=== PATIENT | female | born 1965 | race Caucasian/White ===

== ENCOUNTER 2023-01-13 09:03 | Outpatient (CLI) | payer BC, SELFPAY ==
--- NOTE | 2023-01-13 09:15 | CRLHL7_ITS ---
For Patients: As a result of the Century Cures Act, medical imaging exams and procedure reports are released immediately into your electronic medical record. You may view this report before your referring provider. If you have questions, please contact your health care provider. ULTRASOUND-GUIDED BREAST BIOPSY AND POST-BIOPSY DIGITAL MAMMOGRAM FOR BIOPSY MARKER PLACEMENT CLINICAL HISTORY: Suspicious mass. COMPARISON STUDIES: 01/06/2023, 12/24/2022. TECHNIQUE: Real-time ultrasound with image documentation was used for targeting the breast lesion. Core biopsy specimens were obtained using an automated gun with a 18-gauge biopsy needle. Post-biopsy CC and ML digital mammograms were obtained to document position of the biopsy marker. CONSENT and TIME OUT: The procedure, risks, and alternatives were explained to the patient and a consent was signed. [facility] Protocol was followed including pre-procedure verification that relevant information/documentation was available, reviewed and properly matched to the patient; consent accurate and complete; and equipment and supplies available. Time Out was conducted just prior to starting procedure to verify the four required elements: patient identity, correct side/site marked (if applicable), procedure, relevant images/results properly labeled and displayed (if applicable). PROCEDURE: The patient was positioned supine on the ultrasound table. The breast was prepped with ChloraPrep. 6 cc of 1 percent lidocaine used for local anesthesia. Core samples were obtained. A sterile metal biopsy clip was placed percutaneously to jorge the lesion position within the breast. The specimens were placed in 10% formalin and sent to the pathology department. Pressure was held on the biopsy site until all bleeding subsided. The skin incision was closed with Steri-Strips. An ice pack was positioned over the biopsy site. Post-biopsy instructions were reviewed with the patient, and a written copy was given to her. LATERALITY: LEFT breast. LESION: Microlobulated hypoechoic shadowing mass measuring 1.7 x 1.5 x 1.8 cm at 2 o`clock 11 cm from the nipple. SUSPICION FOR MALIGNANCY: High. NUMBER OF SAMPLES: 5. BIOPSY CLIP SHAPE: Oval. PROXIMITY OF CLIP TO TARGET: Within the lesion. IMPRESSION: Ultrasound-guided breast biopsy. When the pathology report is available, an addendum to this report will be made. ACR not applicable Dictated by Judd Sexton MD @ 01/13/2023 10:06:00 AM jj/Dictated by: Judd Sexton MD @ 01/13/2023 10:05:00 AM (Electronically Signed) Final Report: ADDENDUM: Pathology consistent with invasive ductal carcinoma with clear cell features, grade II/III. This is concordant. Appropriate action recommended. Dictated by: Judd Sexton MD @01/15/2023 9:59:04 AM
--- NOTE | 2023-01-13 10:00 | CRLHL7_ITS ---
For Patients: As a result of the Century Cures Act, medical imaging exams and procedure reports are released immediately into your electronic medical record. You may view this report before your referring provider. If you have questions, please contact your health care provider. PLEASE SEE ULTRASOUND-GUIDED LEFT BREAST BIOPSY PERFORMED SAME DAY CRL:[email or web address] ferris/Dictated by: Judd Sexton MD @ 01/13/2023 10:06:00 AM (Electronically Signed)
== END 2023-01-13 09:04 | disposition home or self-care (01) ==
LOC: US 09:04
PROVIDERS: Visit Provider Student in an Organized Health Care Education/Training Program
DX: N63.20 Unspecified lump in the left breast, unspecified quadrant (principal); R92.8 Other abnormal and inconclusive findings on diagnostic imaging of breast
CPT/HCPCS: 19083; 77065; 88305; 88341; 88342; 88360; 88361; A4648; A4649

== ENCOUNTER 2023-01-24 14:22 | Outpatient (CLI) | payer BC, SELFPAY ==
--- NOTE | 2023-01-24 14:30 | CRLHL7_ITS ---
For Patients: As a result of the Century Cures Act, medical imaging exams and procedure reports are released immediately into your electronic medical record. You may view this report before your referring provider. If you have questions, please contact your health care provider. BILATERAL BREAST MRI WITHOUT AND WITH GADOLINIUM CLINICAL HISTORY: Recently diagnosed LEFT breast cancer after ultrasound-guided biopsy of a mass at 2 o`clock in the LEFT breast. INDICATION FOR BREAST MRI: Staging of newly diagnosed breast cancer and screening of contralateral breast. Regional lymph nodes will also be assessed. COMPARISON STUDIES: Screening mammogram 12/24/2022 and diagnostic LEFT mammogram and ultrasound 01/06/2023. Images from ultrasound-guided LEFT breast biopsy and post biopsy mammogram 01/13/2023. CONTRAST: 15 mL Dotarem. TECHNIQUE: The patient was positioned prone using a breast coil. Multiple imaging sequences were obtained using 1-1.5 mm thick slices with no gap. The image sequences include T2-weighted STIR in the axial plane, T1-weighted nonfat-saturated gradient echo in the axial plane, pre- and post-contrast T1-weighted FLASH 3D with fat suppression in the axial plane, and T1-weighted FLASH high resolution 3D with fat suppression in the sagittal plane. Image post-processing was performed on a [employer] workstation. Complex 3D rendering including maximum intensity projections (MIPS) and volumetric renderings were obtained to optimize visualization of the extent of pathology and relationship to the nipple, skin, and chest wall. This aids in determining feasibility of breast conservation surgery. Subtraction, multiplanar reconstruction, mean curve determination, and angiogenesis mapping were also performed. The study was technically adequate. FINDINGS: Amount of Fibroglandular Tissue: Scattered fibroglandular tissue. Breast Background Enhancement: Mild. RIGHT Breast: There is no suspicious mass or enhancement within the breast. LEFT Breast: In the upper outer breast at 2 o`clock, 11 cm posterior to the nipple there is a 2 x 2.4 x 2 cm oval mass with spiculated margins demonstrating heterogeneous internal enhancement with areas of fat initial and washout delayed phase kinetics. There is susceptibility artifact within the mass from the clip marking the site of biopsy-proven malignancy. Lymph Nodes: There are a few low LEFT axillary lymph nodes with mildly thickened cortices. No abnormal morphology lymph nodes on the RIGHT. No internal mammary lymph nodes. IMPRESSIONS AND RECOMMENDATIONS: 1. The biopsy-proven malignancy at 2 o`clock in the LEFT breast measures up to 2.4 cm on MRI. Continued surgical/oncologic management is recommended. 2. No MRI evidence of malignancy in the RIGHT breast. 3. There are few mildly abnormal appearing low LEFT axillary lymph nodes. Recommend LEFT axillary ultrasound and possible ultrasound-guided biopsy for further evaluation. BI-RADS Category 4: Suspicious Dictated by Maria Haji MD @ 01/27/2023 11:58:46 AM jj/Dictated by: Maria Haji MD @ 01/27/2023 11:58:00 AM (Electronically Signed)
== END 2023-01-24 14:23 | disposition home or self-care (01) ==
LOC: MRI 14:22
PROVIDERS: PCP Student in an Organized Health Care Education/Training Program; Visit Provider Surgery
DX: C50.912 Malignant neoplasm of unspecified site of left female breast (principal)
CPT/HCPCS: 77049; A9575

== ENCOUNTER 2023-02-03 08:54 | Outpatient (CLI) | payer BC, SELFPAY ==
--- NOTE | 2023-02-03 09:15 | CRLHL7_ITS ---
For Patients: As a result of the Century Cures Act, medical imaging exams and procedure reports are released immediately into your electronic medical record. You may view this report before your referring provider. If you have questions, please contact your health care provider. LEFT AXILLA ULTRASOUND/LEFT AXILLA BIOPSY 02/03/2023 CLINICAL HISTORY: History of recent diagnosis LEFT breast cancer with mildly prominent LEFT axillary lymph nodes. COMPARISON: Left axilla ultrasound 02/03/2023. FINDINGS: LEFT AXILLA ULTRASOUND: Ultrasound of the LEFT axilla demonstrates a 1.5 x 0.8 x 0.5 cm lymph node, slightly nodular cortex with presence of a fatty hilum, indeterminate. Ultrasound biopsy is recommended and will follow. LEFT AXILLA BIOPSY: TECHNIQUE: Real-time ultrasound with image documentation was used for targeting the breast lesion. Core biopsy specimens were obtained using an automated gun with a 14-gauge biopsy needle. Post-biopsy CC and ML digital mammograms were obtained to document position of the biopsy marker. CONSENT and TIME OUT: The procedure, risks, and alternatives were explained to the patient and a consent was signed. [place] Protocol was followed including pre-procedure verification that relevant information/documentation was available, reviewed and properly matched to the patient; consent accurate and complete; and equipment and supplies available. Time Out was conducted just prior to starting procedure to verify the four required elements: patient identity, correct side/site marked (if applicable), procedure, relevant images/results properly labeled and displayed (if applicable). PROCEDURE: The patient was positioned supine on the ultrasound table. The breast was prepped with Betadine or ChloraPrep. 10 cc of 1% lidocaine was injected for superficial anesthesia and 5 cc of 1% lidocaine with epinephrine was injected for deeper anesthesia. Core samples were obtained. A sterile metal biopsy clip was placed percutaneously to jorge the lesion position within the breast. The specimens were placed in 10% formalin and sent to the pathology department. Pressure was held on the biopsy site until all bleeding subsided. The skin incision was closed with Steri-Strips. An ice pack was positioned over the biopsy site. Post-biopsy instructions were reviewed with the patient, and a written copy was given to her. LATERALITY: LEFT LESION: The lesion is a 1.5 x 0.5 x 0.8 cm lymph node with slight nodular cortex. SUSPICION FOR MALIGNANCY: Intermediate. NUMBER OF SAMPLES: 3. BIOPSY CLIP SHAPE: Twirl-shaped. PROXIMITY OF CLIP TO TARGET: On target. IMPRESSION: Ultrasound-guided breast biopsy. When the pathology report is available, an addendum to this report will be made. ACR not applicable Winnie Bansal M.D. Diagnostic/Breast Radiologist [facility] [email or web address] Transcribed: 11:33 am DW/Dictated by: Winnie Bansal MD @ 02/03/2023 10:10:00 AM ADDENDUM: Pathology LEFT axillary lymph node ultrasound-guided biopsy demonstrates fragments of benign fibroadipose tissue. Negative for solo tissue and metastatic carcinoma in this sampling. Pathology results reviewed with imaging findings found discordant. Repeat ultrasound-guided axillary biopsy could be performed at request. Surgical and oncologic management per referring physician. Winnie Bansal M.D. Diagnostic/Breast Radiologist [facility] [email or web address] D& Transcribed: 5:20 p.m (Electronically Signed)
== END 2023-02-03 08:55 | disposition home or self-care (01) ==
LOC: US 08:55
PROVIDERS: PCP Student in an Organized Health Care Education/Training Program; Visit Provider Surgery
DX: C50.912 Malignant neoplasm of unspecified site of left female breast (principal); R92.8 Other abnormal and inconclusive findings on diagnostic imaging of breast; R59.9 Enlarged lymph nodes, unspecified; R22.9 Localized swelling, mass and lump, unspecified
CPT/HCPCS: 38505; 76942; 88305; A4648; A4649

== ENCOUNTER 2023-02-04 09:40 | Day surgery (SDC) | payer BC, SELFPAY ==
[2023-02-04 09:56] VITALS: BMI 31.4
[2023-02-04 10:03] VITALS: BP 125/73; PULSE 66; RESP 16; TEMP 36.7; O2SAT 96
[2023-02-04] MEDS: SODIUM CHLORIDE 0.9 % (FLUSH) 10 ML SYRINGE IVF (10:15)
[2023-02-04] MEDS: LACTATED RINGERS 1000 ML 1,000 ML 100 ML IV (10:15)
--- NOTE | 2023-02-04 11:00 | CRLHL7_ITS ---
For Patients: As a result of the Century Cures Act, medical imaging exams and procedure reports are released immediately into your electronic medical record. You may view this report before your referring provider. If you have questions, please contact your health care provider. Indication: Intraop Findings: Intraoperative fluoroscopic images demonstrate right Port-A-Cath with the tip in the region of the RA SVC junction. 29 seconds fluoro time. Please refer to performing physician`s report for full details. Dictated by Winnie Bansal MD @ 02/04/2023 11:52:23 AM (Electronically Signed)
--- NOTE | 2023-02-04 11:00 | W.ANESCHARGE ---
Anesthesia Charges Start Date/Time Anesthesia Start Date: 02/04/23 Anesthesia Start Time: 10:41 Stop Date/Time Anesthesia Stop Date: 02/04/23 Anesthesia Stop Time: 11:50
[2023-02-04] MEDS: LIDOCAINE 1 % PF 30 ML INJECTION (11:30)
[2023-02-04] MEDS: 0.9 % SODIUM CHLORIDE 50 ml IV (11:30)
[2023-02-04] MEDS: HEPARIN 500 UNIT/5 ML SYRINGE IVF (11:30)
[2023-02-04] MEDS: BUPIVACAINE 0.5% 30 ML INJECTION (11:30)
[2023-02-04] MEDS: ACETAMINOPHEN 325 MG TABLET 650 MG PO (11:40)
--- NOTE | 2023-02-04 11:41 | CRLHL7_ITS ---
For Patients: As a result of the Century Cures Act, medical imaging exams and procedure reports are released immediately into your electronic medical record. You may view this report before your referring provider. If you have questions, please contact your health care provider. INDICATION: Port placement. TECHNIQUE: AP portable chest. COMPARISON: Intraoperative image February 04, 2023 performed earlier on the same date. FINDINGS: Right-sided Port-A-Cath with its lead tip in superior vena cava. No pneumothorax. Atelectasis right mid lung. Clear left lung. Normal heart size. IMPRESSION: Right-sided Port-A-Cath with lead tip in the superior vena cava. No pneumothorax. Dictated by Noman Torres MD @ 02/06/2023 8:26:21 PM (Electronically Signed)
--- NOTE | 2023-02-04 11:42 | PM.GSPRC ---
Operative Note Date of procedure: 02/04/23 Pre-op diagnosis: Invasive ductal carcinoma of the breast Post-op diagnosis: Same Type of Procedure: Port a catheter placed, right internal jugular Indications: Patient is a 57-year-old female with recent diagnosis of invasive ductal carcinoma of the breast. She had been seen by Oncology, with recommendations for port a catheter placement. Risks and benefits of operative intervention were discussed at length with the patient. Risks included but was not limited to: Bleeding, infection, risk of damage to surrounding structures, possible need for additional procedures and postoperative complications such as pneumonia, pulmonary emboli or OR. All questions and concerns were addressed with the patient agreeing to proceed. Procedure Description: After discussing the risks and benefits of the procedure, the patient signed informed consent.? The operative site was marked and the patient was brought to the operating room and placed on the operating table in supine position.? Care was taken to pad the patient's pressure points.?? The patient was then given sedation by anesthesia.?? The operative site was then prepped and draped in the usual sterile fashion.? A time-out was then performed. The patient's right internal jugular vein was visualized using ultrasound. Local anesthetic was injected into the neck skin above the vein. A skin abundio was made in the marked area. Using Seldinger technique and ultrasound an introducer needle was used to enter into the vein and a wire thread. Placement of the wire was confirmed by C-arm. Next local anesthetic was injected into the skin below the clavicle and along the proposed tract to the neck incision. A skin incision was then made with a 15 blade and a pocket created in the chest wall with cautery. A tunneler was then used to thread the catheter from the chest wall pocket to the neck incision. Once this was done fluoroscopy was brought into the field. Over the wire the tract was dilated using fluoroscopy. The wire and the dilator were then removed leaving the sheath intact in the vein. Through this the catheter was threaded. Using fluoroscopy the catheter was positioned into the distal SVC. The catheter was noted to flush and aspirate easily. The catheter was then connected to the port. The port was placed in the pocket and secured in place with 2 0 Prolene stay suture. It was noted to flush and aspirate easily. This was then locked with heparinized saline. The skin was closed with absorbable suture. Sterile dressings were applied. Instrument sponge and needle counts were correct at the end of the case. The patient was woken and taken to the PACU in stable condition. ? Findings: Compressible right internal jugular vein. Anesthesia: MAC and local Surgeon: Lisa Vaughan MD Estimated blood loss (mL): 10 Condition: stable Disposition: same day
[2023-02-04 11:48] VITALS: BP 101/63; PULSE 71; RESP 16; TEMP 36.2; O2SAT 94
--- NOTE | 2023-02-04 11:55 | W.ANESCHARGE ---
Anesthesia Charges Start Date/Time Anesthesia Start Date: 02/04/23 Anesthesia Start Time: 10:41 Stop Date/Time Anesthesia Stop Date: 02/04/23 Anesthesia Stop Time: 11:50
[2023-02-04 12:00] VITALS: BP 104/65; PULSE 56; RESP 16; O2SAT 95
[2023-02-04 12:15] VITALS: BP 115/69; PULSE 52; RESP 16; O2SAT 97
[2023-02-04 12:30] VITALS: BP 125/69; PULSE 53; RESP 16; O2SAT 98
== END 2023-02-04 13:30 | disposition home or self-care (01) ==
PROVIDERS: PCP Student in an Organized Health Care Education/Training Program; Visit Provider Surgery
PROC: (CPT 36561; principal; 2023-02-04 11:00)
DX: Z45.2 Encounter for adjustment and management of vascular access device (principal); C50.412 Malignant neoplasm of upper-outer quadrant of left female breast
CPT/HCPCS: 36561; 00532; 71045; 76000; A9270; C1788; J1100; J1642; J2001; J2250; J2405; J2704; J3010; J3490; J7120

== ENCOUNTER 2023-02-06 12:28 | Outpatient (CLI) | payer BC, SELFPAY ==
--- NOTE | 2023-02-06 13:00 | CRLHL7_ITS ---
For Patients: As a result of the Century Cures Act, medical imaging exams and procedure reports are released immediately into your electronic medical record. You may view this report before your referring provider. If you have questions, please contact your health care provider. INDICATION: Left-sided breast cancer. Invasive duct carcinoma. Follow-up. TECHNIQUE: CT of the chest abdomen and pelvis. 91 cc nonionic Isovue-370 administered. FINDINGS: CT chest: Fibrosis or atelectasis lingular left upper lobe of the lung. Both lungs are otherwise clear. The trachea and mainstem bronchi are patent and clear. There is a lobulated mass within the lateral left breast with a biopsy clip measuring approximately 2.0 x 2.1 cm image 35 series 2. There is a right-sided Port-A-Cath with lead tip in superior vena cava. No internal mammary chain or hilar/mediastinal lymphadenopathy. No pleural or pericardial effusions. 7 mm low-attenuation lesion in the anterior left thyroid gland. This may reflect small colloid cyst. Ultrasound may be helpful for further characterization. CT of the abdomen and pelvis: Normal-appearing liver, spleen, pancreas, gallbladder, adrenal glands, and kidneys. Normal caliber abdominal aorta and iliac arteries containing trace vascular calcification. The urinary bladder, uterus, and both adnexa are unremarkable. No adnexal mass. No ascites or lymphadenopathy. No bowel obstruction or ileus. The stomach and duodenum although incompletely distended are within normal limits. Normal appendix. Few tiny left molly colonic diverticula. Normal included skeleton. No lytic or blastic lesions within the included skeleton. IMPRESSION: 1. Left breast mass with a biopsy clip. 2. No evidence for metastatic disease. 3. Tiny low-dense lesion anterior inferior left thyroid gland possibly a small colloid cyst. Ultrasound may be helpful for further characterization. Please note that all CT scans at this facility use dose modulation, iterative reconstruction, and/or weight-based dosing when appropriate to reduce radiation dose to as low as reasonably achievable. Dictated by Noman Torres MD @ 02/06/2023 8:52:17 PM (Electronically Signed)
== END 2023-02-06 12:29 | disposition home or self-care (01) ==
LOC: CT 12:29
PROVIDERS: PCP Student in an Organized Health Care Education/Training Program; Visit Provider Internal Medicine Hematology & Oncology
DX: C50.912 Malignant neoplasm of unspecified site of left female breast (principal); E04.1 Nontoxic single thyroid nodule
CPT/HCPCS: 71260; 74177; Q9967

== ENCOUNTER 2023-04-28 13:18 | Outpatient (CLI) | payer BC, SELFPAY | END 2023-04-28 13:19 | disposition home or self-care (01) | LOC: RAD 13:18 | PROVIDERS: PCP Student in an Organized Health Care Education/Training Program; Visit Provider Physician Assistant | DX: C50.912 Malignant neoplasm of unspecified site of left female breast (principal); Z51.11 Encounter for antineoplastic chemotherapy | CPT/HCPCS: 93306 ==

== ENCOUNTER 2023-05-21 11:28 | Inpatient (IN) | payer BC, SELFPAY ==
[2023-05-21] VITALS (10 sets, daily range): BP systolic 101–122; BP diastolic 63–81; PULSE 95–128; RESP 12–20; TEMP 36.6–40.2; O2SAT 91–98; BMI 29.1
--- NOTE | 2023-05-21 11:59 | CRLHL7_ITS ---
For Patients: As a result of the Cures Act, medical imaging exams and procedure reports are released immediately into your electronic medical record. You may view this report before your referring provider. If you have questions, please contact your health care provider. INDICATION: Cough, fever TECHNIQUE: Chest 1 views. COMPARISON: February 04, 2023 FINDINGS: Cardiovascular and mediastinum: Heart size and vasculature are normal in caliber and appearance. Lungs and pleural spaces: Subtle patchy opacity at the right lung base may represent atelectasis or developing consolidation. Right IJ port in unchanged position. No sign of pleural effusion. No pneumothorax. Bones and soft tissues: No significant findings. IMPRESSION: Subtle patchy opacity at the right lung base may represent atelectasis or developing consolidation. Dictated by Tr Lieberman MD @ 05/21/2023 1:36:40 PM (Electronically Signed)
[2023-05-21] MEDS: 0.9 % SODIUM CHLORIDE 1000 ml 1,000 ML IV (12:15)
--- NOTE | 2023-05-21 12:31 | ED_ITS ---
HPI - General Adult General Date Seen: 05/21/23 Chief complaint: Fever Stated complaint: Fever Time Seen by Provider: 05/21/23 11:39 Source: patient Mode of arrival: ambulatory Limitations: no limitations History of Present Illness HPI narrative: Patient is a 58-year-old who presents for evaluation of fever. She has underlying T2 triple negative breast cancer with negative nodes, currently undergoing chemotherapy, per her last oncology note plan is as follows:hold Keytruda for cycle 1. And contemplate resuming Keytruda at cycle 2. Of Adriamycin and Cytoxan around 06/04/2023 She has felt fatigued the past couple of days, which she attributed to her recent chemotherapy. This morning she developed a fever up to 101.7. Her has noticed that she has had a cough. She denies shortness of breath or chest pain. She has had some neuropathy in her legs, but has not had otherwise unusual pain or swelling. She had some left lower quadrant pain and route here but that has dissipated. She has had some problems with colitis which have improved. She has not had vomiting. Appetite has been absent. She denies urinary symptoms. She has had a couple of small red bumps on her skin which are not painful nor itchy. Her port site has looked normal. Her white blood cell count as of 626 was 5.5. She did have a Neupogen injection following her last chemo dosing. Related Data Home Medications Medication Instructions Recorded Confirmed CBD chewies PO 02/27/23 05/05/23 cholecalciferol (vitamin D3) 25 25 mcg PO DAILY PRN 02/27/23 05/21/23 mcg (1,000 unit) capsule Al hyd-Mg tr-alg ac-sod bicarb 80 2 tab PO ACHS PRN heartburn 03/24/23 05/21/23 mg-14.2 mg chewable tablet (Gaviscon) loperamide 2 mg capsule (Imodium 2 mg PO Q6H PRN 04/14/23 05/21/23 A-D) ondansetron HCl 4 mg tablet 4 mg PO Q6H PRN nausea 04/14/23 05/21/23 famotidine 20 mg tablet 20 mg PO DAILY PRN 05/05/23 05/21/23 Previous Rx's Medication Instructions Recorded prochlorperazine maleate 10 mg 10 mg PO TID PRN nausea #45 tabs 02/05/23 tablet gabapentin 100 mg capsule 100 mg PO QHS #60 caps 05/05/23 Magic Mouthwash 5 ml PO QID PRN mucositis pain 05/14/23 (Lidocaine/Benadryl/Maalox) 120 mL #120 mL suspension potassium chloride 20 mEq 20 meq PO .COMPLEX #90 tabs 05/20/23 tablet,extended release Allergies Allergy/AdvReac Type Severity Reaction Status Date / Time paroxetine [From Paxil] Allergy Severe Verified 05/21/23 13:42 Review of Systems Status of ROS: Reports: 6 or more systems reviewed and unremarkable except as noted in History and below [facility] Medical History Encounter for care related to Port-a-Cath ?Z45.2 - Encounter for adjustment and management of vascular access device (ICD-10) Neutropenia ?D70.9 - Neutropenia, unspecified (ICD-10) Long QT interval syndrome ?I45.81 - Long QT syndrome (ICD-10) Surgical History Hx of tubal ligation ?Z98.51 - Tubal ligation status (ICD-10) Hx of tonsillectomy ?Z90.89 - Acquired absence of other organs (ICD-10) Family History Father CHF (congestive heart failure) Parkinsons disease Sister Cardiomegaly Social History Narrative: As of 01/30/2023, lives with her in their home. 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 She enjoys tending her chickens, traveling, sewing, her grandchildren. What is your current living situation?: I presently have a place to live Problems where you live: no known problems Problems where you live details: none In the past 12 months, utilities in danger of being shut off: no In the past 12 mos, have been you worried that your food would run out before you had money to buy more?: never true In the past 12 mos, the food you bought just didn't last and you didn't have money to buy more?: never true Highest level of school completed/degree received: some college, no degree Smoking Status: Former smoker Do you use any of these nicotine containing products: None Second hand tobacco smoke exposure: No How often do you have a drink containing alcohol: monthly or less How many standard drinks containing alcohol do you have on a typical day: 1 or 2 How often do you have six or more drinks on one occasion: Never AUDIT-C Alcohol total score: 1 Non-prescribed substance use: denies use Caffeine: Yes (jan) How often does anyone, including family, friends and others, physically hurt you : never How often does anyone, including family, friends and others, insult or talk down to you: never How often does anyone, including family, friends and others, threaten you with harm: never How often does anyone, including family, friends and others, scream or curse at you: never Are you using contraception or practicing any form of control: No service: No Exam Narrative: Exam Narrative: Vital signs as noted above. In general, an alert, well-appearing patient. Head: Normocephalic, atraumatic. Eyes: Pupils are equal reactive. Extraocular movements are full. Conjunctivae are normal. ENT: Mucous membranes are moist. Throat is normal. Neck: Supple without lymphadenopathy. Heart: Regular rate and rhythm. No murmur or rub. Lungs: Clear bilaterally. No increased work of breathing, crackles or wheezes. Abdomen: Soft and nontender. No organomegaly. Extremities: Well perfused. No edema. No calf tenderness. Pulses intact. Neurologic: Patient is alert and oriented to person and place. Speech is fluent. Face is symmetric. Moves all extremities equally. Affect: Normal. Skin: Warm and dry. Well perfused. Const: Vital Signs, click to edit/add: Vital Signs - 24 hr 05/21/23 11:44 05/21/23 12:46 05/21/23 13:00 Temperature 100.7 F H Pulse Rate 102 H 99 Pulse Rate [Pulse Oximeter] Pulse Rate [Right Pulse Oximeter] 128 H Respiratory Rate 18 Blood Pressure Blood Pressure [Ri ght Arm] Blood Pressure [Ri ght Upper Arm] 101/81 Pulse Oximetry 97 97 95 Oxygen Delivery Me thod Room Air 05/21/23 13:02 05/21/23 14:12 07/12/23 14:30 Temperature 97.9 F 100.5 F H Pulse Rate 99 Pulse Rate [Pulse Oximeter] 99 Pulse Rate [Right Pulse Oximeter] Respiratory Rate 16 Blood Pressure 101/68 Blood Pressure [Ri ght Arm] 119/76 Blood Pressure [Ri ght Upper Arm] Pulse Oximetry 91 97 Oxygen Delivery Me thod Room Air Course Course Hospital Course: Following initial evaluation an IV was established and cultures were drawn as well as routine blood work, UA was ordered as well as chest x-ray. My review of her chest x-ray shows possible infiltrate in the right base. Radiology review pending. I do not hear anything on lung exam at this time but she is slightly hypoxic. Considerations at this time include neutropenic fever verses fever in a normal post potentially viral versus bacterial such as pneumonia, urinary tract infection, colitis, diverticulitis, pyelonephritis, etcetera. Ultimately her CBC did return showing a total white blood cell count of 0.5, total neutrophils of 0. Lactate was normal at 1.2. She has remained hemodynamically stable, Zosyn 4.5 g as ordered. Plan will be for admission to the hospital. Given her severe neutropenia, I have elected to do a CT scan through the chest and abdomen to look for any evidence of a more occult infection. Reevaluation(s) Reevaluation #1: Patient was admitted to the hospital without further activity. Her CT was read several hours later and the radiologist did call me noting PE in the right middle lobe. This was relayed to Dr. Crockett. No other findings were discussed with me. Vital Signs Vital signs: Initial Vital Signs Temperature 100.7 F H 05/21/23 11:44 Temperature Source Temporal Artery Scan 05/21/23 11:44 Pulse Rate 128 H 05/21/23 11:44 Respiratory Rate 18 05/21/23 11:44 Blood Pressure 101/81 05/21/23 11:44 Blood Pressure Mean 87 05/21/23 11:44 Blood Pressure Position Sitting 05/21/23 11:44 Pulse Oximetry 97 05/21/23 11:44 Oxygen Delivery Method Room Air 05/21/23 11:44 Vital Signs Temperature 100.7 F H 05/21/23 11:44 Pulse Rate 128 H 05/21/23 11:44 Respiratory Rate 18 05/21/23 11:44 Blood Pressure 101/81 05/21/23 11:44 Pulse Oximetry 97 05/21/23 11:44 Oxygen Delivery Method Room Air 05/21/23 11:44 Temperature 99.4 F 05/21/23 16:30 Pulse Rate 95 05/21/23 16:30 Respiratory Rate 12 05/21/23 16:30 Blood Pressure 118/63 05/21/23 16:30 Pulse Oximetry 98 05/21/23 16:30 Oxygen Delivery Method Room Air 05/21/23 16:30 Medical Decision Making Lab Data Labs: Lab Results 05/21/23 05/21/23 05/21/23 Range/Units 12:00 12:47 13:50 WBC 0.51 L* (4.50-11.00) K/uL RBC 2.39 L (4.00-5.20) m/uL Hgb 8.3 L (12.0-16.0) gm/dL Hct 24.9 L (33.0-51.0) % MCV 104 H (80-100) fL MCH 35 H (26-34) pg MCHC 33 (32-36) gm/dL RDW Coeff of Sheri 16.3 H (11.5-15.5) % Plt Count 90 L (140-440) K/uL Neut % (Auto) 2.0 L (42.0-72.0) % Lymph % (Auto) 84.3 H (20-44) % [place] % (Auto) 9.8 (0.0-11.0) % Eos % (Auto) 3.9 (0.0-7.0) % Baso % (Auto) 0.0 (0.0-3.0) % Neut # (Auto) 0.00 L (1.7-7.0) K/uL Lymph # (Auto) 0.40 L (0.90-2.90) K/uL [place] # (Auto) 0.00 (0.00-0.90) K/UL Eos # (Auto) 0.00 (0.00-0.50) K/uL Baso # (Auto) 0.00 (0.00-0.30) K/uL Abs Immat Gran (auto) 0.00 (0.00-0.30) K/uL Imm/Tot Granulo (auto) 0.0 % Diff Slide Review Acceptable Review (Acceptable) Sodium 131 L (135-149) mmol/L Potassium 3.7 (3.6-5.1) mmol/L Chloride 99 (96-114) mmol/L Carbon Dioxide 24 (20-32) mmol/L BUN 13 (7-30) mg/dL Creatinine 0.6 (0.5-1.5) mg/dL Estimated GFR 103 ml/min Glucose 115 (60-115) mg/dL Calcium 8.9 (8.4-10.6) mg/dL Total Bilirubin 1.5 (0.1-1.5) mg/dL Direct Bilirubin 0.2 (0.0-0.5) mg/dL AST 17 (12-35) U/L ALT 18 (4-35) U/L Alkaline Phosphatase 63 (40-150) U/L Lactate Baseline 1.2 (0.5-1.9) mmol/L C-Reactive Protein 3.5 H (0.5-1.0) mg/dL Total Protein 6.8 (6.0-8.3) g/dL Albumin 4.1 (3.3-5.0) g/dL Urine Color Liliana A (Yellow) Urine Appearance Clear (Clear) Urine pH 7.0 (5.0-8.5) Ur Specific [place] 1.015 (1.000-1.030) Urine Protein Negative (Negative) Urine Glucose (UA) Negative (Negative) Urine Ketones Negative (Negative) Urine Blood Negative (Negative) Urine Nitrite Negative (Negative) Urine Bilirubin Negative (Negative) Urine Urobilinogen 0.2 (0.2-1.0) Ur Leukocyte Esterase Negative (Negative) Urine RBC 0-2 (0-2) Urine WBC 0-2 (0-5) Ur Squamous Epith Cells Few (None-Few) Urine Bacteria None (None) SARS-CoV-2 (PCR) Negative SARS-CoV-2 (Negative) Influenza Type A (PCR) Negative PCR FLU A (Negative) Influenza Type B (PCR) Negative PCR FLU B (Negative) RSV (PCR) Negative PCR RSV (Negative) Group A Strep DNA NOT DETECTED (Not Detectd) Discharge Plan Discharge Clinical Impression: Neutropenic fever, Breast cancer Patient Disposition: Admitted As Observation Condition: Stable
[2023-05-21] MEDS: ACETAMINOPHEN 500 MG TABLET 1000 MG PO (12:38)
[2023-05-21 12:45] LABS: Eosinophils Percent Auto 3.9 % (0.0-7.0); Hematocrit 24.9 % (33.0-51.0); Hemoglobin* 8.3 gm/dL (12.0-16.0); Lactate Sepsis w/Reflex* 1.2 mmol/L (0.5-1.9); Lymphocytes Percent Auto 84.3 % (20-44); Mean Corpuscular HGB Conc 33 gm/dL (32-36); Mean Corpuscular Hemoglobin 35 pg (26-34); Mean Corpuscular Volume 104 fL (80-100); Monocytes Percent Auto 9.8 % (0.0-11.0); Platelet Count* 90 K/uL (140-440); RDW Coefficient of Variation % 16.3 % (11.5-15.5); Red Blood Count 2.39 m/uL (4.00-5.20)
--- NOTE | 2023-05-21 12:58 | ED.NURSE ---
Patient complained of sore throat, Strep throat culture was ordered per standing order.
[2023-05-21 13:02] LABS: Albumin* 4.1 g/dL (3.3-5.0); Chloride* 99 mmol/L (96-114)
[2023-05-21 13:03] LABS: Potassium* 3.7 mmol/L (3.6-5.1); Sodium* 131 mmol/L (135-149)
[2023-05-21 13:05] LABS: Creatinine* 0.6 mg/dL (0.5-1.5); Estimated Glomerular Filt Rate 103 ml/min
[2023-05-21 13:06] LABS: Alanine Aminotransferase* 18 U/L (4-35); Alkaline Phosphatase* 63 U/L (40-150); Aspartate Amino Transferase* 17 U/L (12-35); Bilirubin Direct* 0.2 mg/dL (0.0-0.5); Bilirubin Total* 1.5 mg/dL (0.1-1.5); Blood Urea Nitrogen* 13 mg/dL (7-30); Calcium* 8.9 mg/dL (8.4-10.6); Carbon Dioxide* 24 mmol/L (20-32); Glucose* 115 mg/dL (60-115); Total Protein* 6.8 g/dL (6.0-8.3)
[2023-05-21 13:09] LABS: C Reactive Protein* 3.5 mg/dL (0.5-1.0)
[2023-05-21 13:15] LABS: Slide Review Reflex Yes; White Blood Count* 0.51 K/uL (4.50-11.00)
[2023-05-21 13:16] LABS: Slide Review Acceptable Review (Acceptable)
--- NOTE | 2023-05-21 13:17 | ED.NURSE ---
Critical lab: WBC 0.51 handed to at 1316
--- NOTE | 2023-05-21 13:22 | CRLHL7_ITS ---
For Patients: As a result of the Century Cures Act, medical imaging exams and procedure reports are released immediately into your electronic medical record. You may view this report before your referring provider. If you have questions, please contact your health care provider. INDICATION: Neutropenic fever. Cough. Left lower quadrant abdominal pain. TECHNIQUE: CT PE chest, CT abdomen and pelvis acquired with 95 mL Isovue 370 contrast. COMPARISON: CT of the/pelvis dated 04/14/2023, CT chest/abdomen/pelvis dated 02/06/2023. FINDINGS: CHEST: Lungs and pleura: No focal consolidation. Subsegmental atelectasis in the lingula. No evidence of pulmonary infarct. Heart and vessels: No cardiomegaly, no pericardial effusion. Filling defects are present within multiple segmental and subsegmental pulmonary arteries of the right lower lobe, as well as a subsegmental right middle lobe pulmonary artery. Thyroid and lower neck: Stable left thyroid nodule. Mediastinum/caroline: No lymphadenopathy. Chest wall: Vascular port is present within the right chest wall. No axillary lymphadenopathy. Postsurgical changes in the upper outer quadrant of the left breast. ABDOMEN/PELVIS: Liver: No suspicious focal hepatic lesion. Gallbladder and bile ducts: Unremarkable. Pancreas: Unremarkable. Spleen: Unremarkable. Splenule is noted. Adrenal glands: Unremarkable. Kidneys: Kidneys enhance symmetrically, without hydronephrosis. Retroperitoneum: No lymphadenopathy. Bowel and mesentery: Bowel is nonobstructed. Scattered colonic diverticulosis, without evidence of acute diverticulitis. Normal appendix. No significant ascites. No pneumoperitoneum. Bladder: Unremarkable for degree of distension. Reproductive organs: Unremarkable. Pelvic lymph nodes: No lymphadenopathy. Vessels: Few scattered atherosclerotic calcifications. Abdominal wall: No acute abdominal wall abnormality. Bones: Mild multilevel degenerative changes of the spine. No suspicious/aggressive focal osseous lesion. IMPRESSION: 1. Acute pulmonary emboli within multiple segmental and subsegmental pulmonary arteries in the right lower lobe and right middle lobe. 2. Scattered colonic diverticulosis, without evidence of acute diverticulitis. Please note that all CT scans at this facility use dose modulation, iterative reconstruction, and/or weight-based dosing when appropriate to reduce radiation dose to as low as reasonably achievable. Dictated by June Gerardo MD @ 05/21/2023 4:31:21 PM (Electronically Signed)
[2023-05-21 13:31] LABS: PCR FLU A Negative PCR FLU A (Negative); PCR FLU B Negative PCR FLU B (Negative); PCR RSV Negative PCR RSV (Negative)
[2023-05-21 14:03] LABS: Appearance Urine Clear (Clear); Bilirubin Urine Negative (Negative); Blood Urine Negative (Negative); Color Urine Amber (Yellow); Glucose Urine Negative (Negative); Ketones Urine Negative (Negative); Leukocyte Esterase Urine Negative (Negative); Nitrite Urine Negative (Negative); Protein Urine Negative (Negative); Specific Gravity Urine 1.015 (1.000-1.030); Urobilinogen Urine 0.2 (0.2-1.0)
[2023-05-21 14:16] LABS: SARS PCR* Negative SARS-CoV-2 (Negative)
[2023-05-21 14:16] LABS: Strep A DNA Probe* NOT DETECTED (Not Detectd)
[2023-05-21] MEDS: PIPERACILLIN/TAZOBACTAM 4.5 GM in 0.9 % SODIUM CHLORIDE Mini-bag 100 ML IVPB (14:27)
[2023-05-21 14:42] LABS: RBC Urine 0-2 (0-2); Squamous Epithelial Cell Urine Few (None-Few); WBC Urine 0-2 (0-5)
[2023-05-21] MEDS: ONDANSETRON 2 MG/ML inj 4 MG IVP (15:03)
[2023-05-21] MEDS: SODIUM CHLORIDE 0.9 % (FLUSH) 10 ML SYRINGE IVF ×2 (15:04→20:54)
[2023-05-21] MEDS: HEPARIN 500 UNIT/5 ML SYRINGE IVF ×2 (15:04→20:54)
--- NOTE | 2023-05-21 15:35 | PC.NURSE ---
PATIENT ARRIVED TO FLOOR FROM ED AROUND 1430, ACCOMPANIED BY BETSY, PATIENT ALERT AND ORIENTED, UP AD RAFA WITH STEADY GAIT, PATIENT EXPRESSING SOME NAUSEA AND PRN ZOFRAN GIVEN, DECLINING PAIN, PORT TO RIGHT CHEST LOCKED.
--- NOTE | 2023-05-21 19:44 | P.IMHP_ITS ---
Hospitalist- H&P: HPI History of Present Illness Date Seen: 05/21/23 Chief complaint: Fever Narrative: Yazmin Plasencia is a 58 year old female undergoing chemotherapy for breast cancer who presents with neutropenic fever. Patient diagnosed in January of this year with breast cancer. Started on treatment with carboplatin Taxol and Keytruda. Keytruda was discontinued due to colitis. She was treated with prednisone for that. 1 week ago she started 1st cycle of Adriamycin and Cytoxan . She received Neupogen treatment as well. Two days ago she began to feel profound fatigue and achiness. She did not go to work. She attempted to go to work yesterday but felt poorly so went home. Today she developed fever and chills and came to the emergency department. She reports she has had a poor appetite. Food tastes very poorly. She reports no other symptoms of illness. She has had no new cough, cold, congestion, fever before today, shortness of breath, chest pain, abdominal pain, vomiting, diarrhea, urinary problems. She did have diarrhea from her colitis but that has resolved. Testing the emergency department did not show any other acute infectious source. She has had no travel or exposure history. She does work for [employer]. Review of Systems Narrative: She has been generally doing well except for significant side effects of her immune and chemo therapy noted above. She specifically denies respiratory problems except she does note that she has had a chronic cough. No chest pain or dyspnea. No history of bleeding or clotting problems. [facility] Medical History (Updated 05/21/23 @ 20:00 by Cory Crockett MD) Pulmonary emboli ?I26.99 - Other pulmonary embolism without acute cor pulmonale (ICD-10) Breast cancer ?C50.919 - Malignant neoplasm of unspecified site of unspecified female breast (ICD-10) Neutropenic fever ?D70.9 - Neutropenia, unspecified (ICD-10) ?R50.81 - Fever presenting with conditions classified elsewhere (ICD-10) 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 - Drug-induced polyneuropathy (ICD-10) ?T45.1X5A - Adverse effect of antineoplastic and immunosuppressive drugs, initial encounter (ICD-10) Hyperglycemia, unspecified ?R73.9 - Hyperglycemia, unspecified (ICD-10) Hypokalemia ?E87.6 - Hypokalemia (ICD-10) Anemia associated with chemotherapy ?D64.81 - Anemia due to antineoplastic chemotherapy (ICD-10) ?T45.1X5A - Adverse effect of antineoplastic and immunosuppressive drugs, initial encounter (ICD-10) Colitis ?K52.9 - Noninfective gastroenteritis and colitis, unspecified (ICD-10) Heartburn ?R12 - Heartburn (ICD-10) Immunotherapy encounter ?Z29.8 - Encounter for other specified prophylactic measures (ICD-10) Diarrhea ?R19.7 - Diarrhea, unspecified (ICD-10) Weight loss, unintentional ?R63.4 - Abnormal weight loss (ICD-10) Encounter for care related to Port-a-Cath ?Z45.2 - Encounter for adjustment and management of vascular access device (ICD-10) Neutropenia ?D70.9 - Neutropenia, unspecified (ICD-10) Long QT interval syndrome ?I45.81 - Long QT syndrome (ICD-10) Surgical History Hx of tubal ligation ?Z98.51 - Tubal ligation status (ICD-10) Hx of tonsillectomy ?Z90.89 - Acquired absence of other organs (ICD-10) Family History Father CHF (congestive heart failure) Parkinsons disease Sister Cardiomegaly Social History (Updated 05/21/23 @ 19:55 by Cory Crockett MD) Narrative: As of 01/30/2023, lives with her in their home. 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 She enjoys tending her chickens, traveling, sewing, her grandchildren. Code status is full. or her 2 children are healthcare power of criminal attorney. She is a former smoker. She rarely drinks alcohol. What is your current living situation?: I presently have a place to live Problems where you live: no known problems Problems where you live details: none In the past 12 months, utilities in danger of being shut off: no In the past 12 mos, have been you worried that your food would run out before you had money to buy more?: never true In the past 12 mos, the food you bought just didn't last and you didn't have money to buy more?: never true Highest level of school completed/degree received: some college, no degree Smoking Status: Former smoker Do you use any of these nicotine containing products: None Second hand tobacco smoke exposure: No How often do you have a drink containing alcohol: monthly or less How many standard drinks containing alcohol do you have on a typical day: 1 or 2 How often do you have six or more drinks on one occasion: Never AUDIT-C Alcohol total score: 1 Non-prescribed substance use: denies use Caffeine: Yes (jan) How often does anyone, including family, friends and others, physically hurt you : never How often does anyone, including family, friends and others, insult or talk down to you: never How often does anyone, including family, friends and others, threaten you with harm: never How often does anyone, including family, friends and others, scream or curse at you: never Are you using contraception or practicing any form of control: No service: No Meds Home Medications and Allergies Home Medications Medication Instructions Recorded Confirmed Type CBD chewies PO 02/27/23 05/05/23 History cholecalciferol (vitamin D3) 25 25 mcg PO DAILY PRN 02/27/23 05/21/23 History mcg (1,000 unit) capsule Al hyd-Mg tr-alg ac-sod bicarb 80 2 tab PO ACHS PRN heartburn 03/24/23 05/21/23 History mg-14.2 mg chewable tablet (Gaviscon) loperamide 2 mg capsule (Imodium 2 mg PO Q6H PRN 04/14/23 05/21/23 History A-D) ondansetron HCl 4 mg tablet 4 mg PO Q6H PRN nausea 04/14/23 05/21/23 History famotidine 20 mg tablet 20 mg PO DAILY PRN 05/05/23 05/21/23 History Allergies Allergy/AdvReac Type Severity Reaction Status Date / Time paroxetine [From Paxil] Allergy Severe Verified 05/21/23 13:42 Exam Narrative: Exam Narrative: She is alert and appears in no obvious distress. She has of bundled up with blankets trying to get warm. Head is without trauma. Eyes are normal. Oropharynx with mild erythema over the posterior pharynx. No exudate or mucosal abnormalities. Neck is supple without mass or adenopathy. Mild tenderness under the left angle of the mandible without adenopathy or mass. Respirations are clear to auscultation. Cardiovascular: S1, S2, regular rate and rhythm. Abdomen: Bowel sounds active. Abdomen is soft without tenderness or mass. External genitalia normal. Extremities without edema. She has intact peripheral pulses. Skin is without rash. She moves all 4 extremities well. Const: Vital Signs, click to edit/add: Vital Signs - 24 hr 05/21/23 11:44 05/21/23 12:46 05/21/23 13:00 Temperature 100.7 F H Pulse Rate 102 H 99 Pulse Rate [Pulse Oximeter] Pulse Rate [Right Pulse Oximeter] 128 H Respiratory Rate 18 Blood Pressure Blood Pressure [Ri ght Arm] Blood Pressure [Ri ght Upper Arm] 101/81 Pulse Oximetry 97 97 95 Oxygen Delivery Me thod Room Air 05/21/23 13:02 05/21/23 14:12 05/21/23 14:30 Temperature 97.9 F 100.5 F H Pulse Rate 99 Pulse Rate [Pulse Oximeter] 99 Pulse Rate [Right Pulse Oximeter] Respiratory Rate 16 Blood Pressure 101/68 Blood Pressure [Ri ght Arm] 119/76 Blood Pressure [Ri ght Upper Arm] Pulse Oximetry 91 97 Oxygen Delivery Me thod Room Air 05/21/23 14:30 05/21/23 16:30 Temperature 99.4 F Pulse Rate Pulse Rate [Pulse Oximeter] 95 Pulse Rate [Right Pulse Oximeter] Respiratory Rate 18 12 Blood Pressure Blood Pressure [Ri ght Arm] 118/63 Blood Pressure [Ri ght Upper Arm] Pulse Oximetry 98 Oxygen Delivery Me thod Room Air Documenting provider has reviewed patient's vital signs: yes Hospitalist - H&P: Result Labs Labs: Short CBC 05/21/23 Range/Units 12:00 WBC 0.51 L* (4.50-11.00) K/uL Hgb 8.3 L (12.0-16.0) gm/dL Hct 24.9 L (33.0-51.0) % Plt Count 90 L (140-440) K/uL BMP 05/21/23 12:00 Sodium 131 L Potassium 3.7 Chloride 99 Carbon Dioxide 24 BUN 13 Creatinine 0.6 Glucose 115 Calcium 8.9 Liver Function 05/21/23 Range/Units 12:00 Total Bilirubin 1.5 (0.1-1.5) mg/dL Direct Bilirubin 0.2 (0.0-0.5) mg/dL AST 17 (12-35) U/L ALT 18 (4-35) U/L Alkaline Phosphatase 63 (40-150) U/L Albumin 4.1 (3.3-5.0) g/dL Urine 05/21/23 Range/Units 13:50 Urine Color Liliana A (Yellow) Urine Appearance Clear (Clear) Urine pH 7.0 (5.0-8.5) Ur Specific [place] 1.015 (1.000-1.030) Urine Protein Negative (Negative) Urine Glucose (UA) Negative (Negative) Imaging CT Chest/Ab/Pelvis: Radiologist's impression: INDICATION: Neutropenic fever. Cough. Left lower quadrant abdominal pain. TECHNIQUE: CT PE chest, CT abdomen and pelvis acquired with 95 mL Isovue 370 contrast. COMPARISON: CT of the/pelvis dated 04/14/2023, CT chest/abdomen/pelvis dated 02/06/2023. FINDINGS: CHEST: Lungs and pleura: No focal consolidation. Subsegmental atelectasis in the lingula. No evidence of pulmonary infarct. Heart and vessels: No cardiomegaly, no pericardial effusion. Filling defects are present within multiple segmental and subsegmental pulmonary arteries of the right lower lobe, as well as a subsegmental right middle lobe pulmonary artery. Thyroid and lower neck: Stable left thyroid nodule. Mediastinum/caroline: No lymphadenopathy. Chest wall: Vascular port is present within the right chest wall. No axillary lymphadenopathy. Postsurgical changes in the upper outer quadrant of the left breast. ABDOMEN/PELVIS: Liver: No suspicious focal hepatic lesion. Gallbladder and bile ducts: Unremarkable. Pancreas: Unremarkable. Spleen: Unremarkable. Splenule is noted. Adrenal glands: Unremarkable. Kidneys: Kidneys enhance symmetrically, without hydronephrosis. Retroperitoneum: No lymphadenopathy. Bowel and mesentery: Bowel is nonobstructed. Scattered colonic diverticulosis, without evidence of acute diverticulitis. Normal appendix. No significant ascites. No pneumoperitoneum. Bladder: Unremarkable for degree of distension. Reproductive organs: Unremarkable. Pelvic lymph nodes: No lymphadenopathy. Vessels: Few scattered atherosclerotic calcifications. Abdominal wall: No acute abdominal wall abnormality. Bones: Mild multilevel degenerative changes of the spine. No suspicious/aggressive focal osseous lesion. IMPRESSION: 1. Acute pulmonary emboli within multiple segmental and subsegmental pulmonary arteries in the right lower lobe and right middle lobe. 2. Scattered colonic diverticulosis, without evidence of acute diverticulitis. Assessment and Plan Assessment and plan (1) Neutropenic fever: Problem comment: No definite obvious source for fever. I do not think the pulmonary emboli are the cause of her fever. Continue IV antibiotics pending resolution of fever and return of bone marrow function and white blood cells. Absolute neutrophil count today is 0. Status: Acute (2) Breast cancer: Status: Acute (3) Pulmonary emboli: Problem comment: Found on CT chest 05/21/2023 during evaluation for neutropenic fever. Initiate apixaban Status: Acute (4) Peripheral neuropathy due to chemotherapy: Status: Acute (5) Weight loss, unintentional: Problem comment: Discussed strategies to improve nutrition Status: Acute Plan Patient is admitted the hospital for management of neutropenic fever. Broad- spectrum antibiotics and following her bone marrow suppression and white count. Continue to monitor for source of infection. Treat pulmonary emboli with apixaban. Patient does not appear to be high risk for bleeding problems or have a history of bleeding problems. Total time spent today is 80 minutes, 55 minutes in coordination of care and discussing with patient, and other providers management of neutropenic fever and pulmonary emboli
[2023-05-21] MEDS: PIPERACILLIN/TAZOBACTAM 3.375 GM in 0.9 % SODIUM CHLORIDE Mini-bag 100 ML IVPB (19:49)
[2023-05-21] MEDS: SODIUM CHLORIDE 0.9 % (FLUSH) 10 ML SYRINGE 5 ML IVF (19:50)
[2023-05-21] MEDS: ACETAMINOPHEN 325 MG TABLET 975 MG PO (20:09)
[2023-05-21] MEDS: APIXABAN 5 MG TABLET PO (20:53)
--- NOTE | 2023-05-21 22:51 | PC.NURSE ---
End of Shift: Patient pleasant and cooperative. Denies pain. Up independently in room. Tolerating regular diet with no nausea. Temp at 2000 was 104.4, updated MD, PRN Tylenol given and ice pack to neck. Temp at recheck 102.1. O2 sats mid to upper 90s on room air.
[2023-05-22] VITALS (18 sets, daily range): BP systolic 100–116; BP diastolic 59–70; PULSE 79–105; RESP 18–20; TEMP 37.1–39.3; O2SAT 94–98; BMI 28.8
[2023-05-22] MEDS: IBUPROFEN 400 MG TABLET PO (00:18)
[2023-05-22] MEDS: PIPERACILLIN/TAZOBACTAM 3.375 GM in 0.9 % SODIUM CHLORIDE Mini-bag 100 ML IVPB ×4 (02:05→20:51)
[2023-05-22] MEDS: ACETAMINOPHEN 325 MG TABLET 975 MG PO ×2 (02:11→23:41)
[2023-05-22] MEDS: SODIUM CHLORIDE 0.9 % (FLUSH) 10 ML SYRINGE IVF ×3 (02:58→22:07)
[2023-05-22] MEDS: HEPARIN 500 UNIT/5 ML SYRINGE IVF ×6 (02:59→22:06)
--- NOTE | 2023-05-22 06:15 | PC.NURSE ---
End of shift: Pt A&O pleasant and cooperative. Temp?102.6 at 2300, notified, see orders. Pt denies chills. Temp at 0300 was 101.0, PRN Tylenol given. Temp at 0600 98.7. Pt denies pain and n/v. Up independently.
--- NOTE | 2023-05-22 07:59 | CRLHL7_ITS ---
For Patients: As a result of the Century Cures Act, medical imaging exams and procedure reports are released immediately into your electronic medical record. You may view this report before your referring provider. If you have questions, please contact your health care provider. Indication: Sore throat, left-sided evaluate for peritonsillar abscess Technique: Volumetric multidetector CT images of the cervical soft tissues were obtained after the administration of low osmolar intravenous contrast. 82 cc Isovue 370 low osmolar intravenous contrast Comparison: None available. Findings: The partially visualized brain parenchyma is normal in attenuation without evidence of abnormal enhancement. The orbits and their contents are within normal limits. The paranasal sinuses are clear. The mastoid air cells are clear. The nasopharynx is unremarkable. The fossae of Rosenmuller are clear. There is moderate mucosal hyperemia within the sherwin pharyngeal mucosa. No evidence of significant tonsillar enlargement or rim enhancing fluid collection. Mild thickening of the hypo pharyngeal mucosa is appreciated. There is mild prominence of the base of tongue lymphoid tissue. The deep spaces of the neck are otherwise preserved. The vocal folds are nonthickened with symmetrical appearance. The thyroid gland is normal in attenuation. There are enlarged lymph nodes within the posterior triangle and left level 2 cervical soft tissues. The jugular veins are patent. The carotid arteries demonstrate no significant atherosclerotic narrowing. The lung apices are clear. There is right-sided Port-A-Cath in satisfactory position. The cervical vertebral body heights are grossly maintained with minimal endplate Schmorl`s defects. There is mild straightening of the normal cervical lordosis without significant spondylolisthesis or displaced fracture. Impression: Moderate oropharyngeal and hypopharyngeal mucosal hyperemia which may represent pharyngitis changes without evidence of tonsillitis or rim enhancing fluid collection. Moderate reactive left cervical lymph nodes. Please note that all CT scans at this facility use dose modulation, iterative reconstruction, and/or weight-based dosing when appropriate to reduce radiation dose to as low as reasonably achievable. Dictated by Dannie Tyson MD @ 05/22/2023 9:36:40 AM (Electronically Signed)
[2023-05-22 08:25] LABS: Chloride* 100 mmol/L (96-114); Potassium* 3.1 mmol/L (3.6-5.1); Sodium* 132 mmol/L (135-149)
[2023-05-22] MEDS: POTASSIUM CHLORIDE 10 MEQ CAPSULE ER 20 MEQ PO (08:26)
[2023-05-22] MEDS: APIXABAN 5 MG TABLET PO ×2 (08:26→20:52)
[2023-05-22] MEDS: SODIUM CHLORIDE 0.9 % (FLUSH) 10 ML SYRINGE 5 ML IVF ×2 (08:27→20:52)
--- NOTE | 2023-05-22 08:27 | PM.IMPN1 ---
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; negative for acute abscess - Continue IV antibiotics pending resolution of fever and return of bone marrow function and white blood cells Status: Acute (2) Breast cancer: Problem details: - follows with Oncology locally, diagnosed 01/30 - recently started first cycle of Adriamycin and Cytoxan, also received Neupogen Status: Acute (3) Pulmonary emboli: Problem details: - incidentally noted on CT chest 05/21/2023 during evaluation for neutropenic fever - Apixaban initiated 05/21 Status: Acute (4) Peripheral neuropathy due to chemotherapy: Status: Acute (5) Weight loss, unintentional: Problem details: - likely iatrogenic Status: Acute (6) Pancytopenia: Problem details: - iatrogenic - Hgb 7, amenable to transfusion (plan of care reviewed with Sherley Shoemaker OFFENSIVE COORDINATOR in Oncology) Status: Acute Plan - per above - Apixaban for ppx - updated at bedside, questions answered Subjective Date Seen: 05/22/23 Interval history: Tmax 104 overnight, 98 this morning. Yazmin endorses left-sided neck pain and cervical adenopathy, she is post tonsillectomy. ANC remains 0, hemoglobin today is down to 7.0 Exam Narrative: Exam Narrative: GEN: Alert and oriented, appears ill and pale but nontoxic HEENT: EOMIs bilaterally, no scleral icterus, + ttp to L side of neck with + cervical adenopathy, + trismus CV: RRR, No concerning murmurs R: LCTA bilaterally without concerning wheezing, air movement adequate Ext: wwp, trace BLE edema Skin: No concerning skin lesions or rashes on exposed skin Neuro: Nonfocal Psych: Appropriate Const: Vital Signs, click to edit/add: Vital Signs - 24 hr 05/21/23 11:44 05/21/23 12:46 05/21/23 13:00 Temperature 100.7 F H Pulse Rate 102 H 99 Pulse Rate [Pulse Oximeter] Pulse Rate [Right Pulse Oximeter] 128 H Respiratory Rate 18 Blood Pressure Blood Pressure [Ri ght Arm] Blood Pressure [Ri ght Upper Arm] 101/81 Pulse Oximetry 97 97 95 Oxygen Delivery Me thod Room Air 05/21/23 13:02 05/21/23 14:12 05/21/23 14:30 Temperature 97.9 F 100.5 F H Pulse Rate 99 Pulse Rate [Pulse Oximeter] 99 Pulse Rate [Right Pulse Oximeter] Respiratory Rate 16 Blood Pressure 101/68 Blood Pressure [Ri ght Arm] 119/76 Blood Pressure [Ri ght Upper Arm] Pulse Oximetry 91 97 Oxygen Delivery Me thod Room Air 05/21/23 14:30 05/21/23 16:30 05/21/23 19:45 Temperature 99.4 F 104.4 F H Pulse Rate Pulse Rate [Pulse Oximeter] 95 121 H Pulse Rate [Right Pulse Oximeter] Respiratory Rate 18 12 20 Blood Pressure Blood Pressure [Ri ght Arm] 118/63 122/72 Blood Pressure [Ri ght Upper Arm] Pulse Oximetry 98 97 Oxygen Delivery Me od Room Air Room Air 05/21/23 20:09 05/21/23 21:40 05/22/23 00:05 Temperature 104.4 F H 102.1 F H 102.7 F H Pulse Rate Pulse Rate [Pulse Oximeter] 110 H 100 Pulse Rate [Right Pulse Oximeter] Respiratory Rate 20 Blood Pressure Blood Pressure [Ri ght Arm] 108/59 L Blood Pressure [Ri ght Upper Arm] Pulse Oximetry 95 Oxygen Delivery Tx thod Room Air 05/22/23 00:18 05/22/23 02:11 05/22/23 03:00 Temperature 102.7 F H 102.6 F H 101.0 F H Pulse Rate Pulse Rate [Pulse Oximeter] 104 H Pulse Rate [Right Pulse Oximeter] Respiratory Rate 18 Blood Pressure Blood Pressure [Ri ght Arm] 108/60 Blood Pressure [Ri ght Upper Arm] Pulse Oximetry 95 Oxygen Delivery Me thod Room Air 05/22/23 06:14 05/22/23 07:00 05/22/23 07:00 Temperature 98.7 F 99.4 F Pulse Rate Pulse Rate [Pulse Oximeter] 79 79 Pulse Rate [Right Pulse Oximeter] Respiratory Rate 18 18 Blood Pressure Blood Pressure [Ri ght Arm] 100/60 Blood Pressure [Ri ght Upper Arm] Pulse Oximetry 96 Oxygen Delivery Me thod Room Air Labs Labs: Laboratory Results - last 24 hr 05/21/23 05/21/23 05/21/23 12:00 12:47 13:50 WBC 0.51 L* RBC 2.39 L Hgb 8.3 L Hct 24.9 L MCV 104 H MCH 35 H MCHC 33 RDW Coeff of Sheri 16.3 H Plt Count 90 L Neut % (Auto) 2.0 L Lymph % (Auto) 84.3 H [place] % (Auto) 9.8 Eos % (Auto) 3.9 Baso % (Auto) 0.0 Neut # (Auto) 0.00 L Lymph # (Auto) 0.40 L [place] # (Auto) 0.00 Eos # (Auto) 0.00 Baso # (Auto) 0.00 Abs Immat Gran (auto) 0.00 Imm/Tot Granulo (auto) 0.0 Diff Slide Review Acceptable Review Sodium 131 L Potassium 3.7 Chloride 99 Carbon Dioxide 24 BUN 13 Creatinine 0.6 Estimated GFR 103 Glucose 115 Calcium 8.9 Total Bilirubin 1.5 Direct Bilirubin 0.2 AST 17 ALT 18 Alkaline Phosphatase 63 Lactate Baseline 1.2 C-Reactive Protein 3.5 H Total Protein 6.8 Albumin 4.1 Urine Color Liliana A Urine Appearance Clear Urine pH 7.0 Ur Specific [place] 1.015 Urine Protein Negative Urine Glucose (UA) Negative Urine Ketones Negative Urine Blood Negative Urine Nitrite Negative Urine Bilirubin Negative Urine Urobilinogen 0.2 Ur Leukocyte Esterase Negative Urine RBC 0-2 Urine WBC 0-2 Ur Squamous Epith Cells Few Urine Bacteria None SARS-CoV-2 (PCR) Negative SARS-CoV-2 Influenza Type A (PCR) Negative PCR FLU A Influenza Type B (PCR) Negative PCR FLU B RSV (PCR) Negative PCR RSV Group A Strep DNA NOT DETECTED
[2023-05-22 08:28] LABS: Blood Urea Nitrogen* 10 mg/dL (7-30); Carbon Dioxide* 25 mmol/L (20-32); Creatinine* 0.8 mg/dL (0.5-1.5); Est. Creatinine Clearance* 64.58; Estimated Glomerular Filt Rate 84 ml/min
[2023-05-22 08:29] LABS: Calcium* 8.4 mg/dL (8.4-10.6); Glucose* 126 mg/dL (60-115)
[2023-05-22 08:35] LABS: Eosinophils Percent Auto 3.3 % (0.0-7.0); Hematocrit 21.4 % (33.0-51.0); Mean Corpuscular HGB Conc 33 gm/dL (32-36); Mean Corpuscular Hemoglobin 35 pg (26-34); Mean Corpuscular Volume 106 fL (80-100); Monocytes Percent Auto 8.2 % (0.0-11.0); Neutrophils Percent Auto 6.5 % (42.0-72.0); Platelet Count* 78 K/uL (140-440); RDW Coefficient of Variation % 16.3 % (11.5-15.5); Red Blood Count 2.02 m/uL (4.00-5.20)
[2023-05-22 08:38] LABS: White Blood Count* 0.61 K/uL (4.50-11.00)
[2023-05-22 08:39] LABS: Slide Review Reflex No
[2023-05-22] MEDS: ACETAMINOPHEN 500 MG TABLET 1000 MG PO (11:21)
[2023-05-22] MEDS: POTASSIUM BICARB 25 MEQ EFFERVESCENT TAB PO ×3 (11:21→17:06)
--- NOTE | 2023-05-22 19:41 | PC.NURSE ---
[id number]: Patient states she is feeling better today. Patient complained of loose stools x2. CDIFF spec obtained. Patient AAOx3. Patient remains on RA. Patient recieved 1 Unit of blood related to HBG of 7.0. Patient independent with cares. Patient reported slight tenderness to right side of neck. CTA obtained and negative. Patient complains of slight throat pain. Patient spiked fevers throughout the day. Patient had BC drawn x 2. Patient remains on neutropenic precautions. Patient able to verbalize needs.
[2023-05-22 20:02] LABS: C.Difficile Negative (Negative); CDIFFEPI 027 PRESUMPTIVE NEGATIVE (Negative)
[2023-05-23] VITALS (10 sets, daily range): BP systolic 105–120; BP diastolic 63–71; PULSE 83–105; RESP 16–18; TEMP 36.8–37.9; O2SAT 93–96
[2023-05-23] MEDS: SODIUM CHLORIDE 0.9 % (FLUSH) 10 ML SYRINGE IVF ×4 (01:44→20:42)
[2023-05-23] MEDS: PIPERACILLIN/TAZOBACTAM 3.375 GM in 0.9 % SODIUM CHLORIDE Mini-bag 100 ML IVPB ×4 (01:45→19:52)
[2023-05-23] MEDS: HEPARIN 500 UNIT/5 ML SYRINGE IVF ×5 (02:53→20:42)
--- NOTE | 2023-05-23 05:28 | PC.NURSE ---
END OF SHIFT NOTE: PT PLEASANT AND COOPERATIVE. A&Ox4. PT DENIES CP, SOB, N/V. AMBULATES WITHIN ROOM INDEPENDENTLY. VSS ON RA; MAX TEMP 101.2F. PT STATED, ?I THINK I?M STARTING TO GET MOUTH SORES.? NO SORES NOTED UPON INSPECTION. PT DECLINED ANY MOUTH CARE MEDICATION, REPORTING SHE USES BAKING SODA RINSE. CDIFF NEGATIVE.?CALL LIGHT WITHIN PT?S REACH.
[2023-05-23 06:39] LABS: Basophils Percent Auto 0.6 % (0.0-3.0); Eosinophils Percent Auto 2.5 % (0.0-7.0); Hematocrit 26.6 % (33.0-51.0); Hemoglobin* 8.9 gm/dL (12.0-16.0); Immature Granulocytes Pct Auto 1.3 %; Lymphocytes Percent Auto 62.9 % (20-44); Mean Corpuscular HGB Conc 34 gm/dL (32-36); Mean Corpuscular Hemoglobin 34 pg (26-34); Mean Corpuscular Volume 100 fL (80-100); Monocytes Percent Auto 14.5 % (0.0-11.0); Neutrophils Percent Auto 18.2 % (42.0-72.0); Platelet Count* 74 K/uL (140-440); RDW Coefficient of Variation % 19.5 % (11.5-15.5); Red Blood Count 2.65 m/uL (4.00-5.20)
[2023-05-23 07:03] LABS: Albumin* 3.5 g/dL (3.3-5.0); Chloride* 104 mmol/L (96-114)
[2023-05-23 07:04] LABS: Potassium* 3.6 mmol/L (3.6-5.1); Sodium* 137 mmol/L (135-149)
[2023-05-23 07:06] LABS: Bilirubin Total* 0.8 mg/dL (0.1-1.5); Carbon Dioxide* 26 mmol/L (20-32); Creatinine* 0.6 mg/dL (0.5-1.5); Estimated Glomerular Filt Rate 103 ml/min; Total Protein* 6.2 g/dL (6.0-8.3)
[2023-05-23 07:07] LABS: Alanine Aminotransferase* 22 U/L (4-35); Alkaline Phosphatase* 60 U/L (40-150); Aspartate Amino Transferase* 19 U/L (12-35); Blood Urea Nitrogen* 6 mg/dL (7-30); Calcium* 8.6 mg/dL (8.4-10.6); Glucose* 105 mg/dL (60-115)
[2023-05-23 07:42] LABS: Slide Review Reflex Yes; White Blood Count* 1.59 K/uL (4.50-11.00)
[2023-05-23 07:43] LABS: Slide Review Acceptable Review (Acceptable)
[2023-05-23 08:29] LABS: Mono Screen* Negative (Negative)
[2023-05-23] MEDS: APIXABAN 5 MG TABLET PO ×2 (09:33→20:41)
[2023-05-23] MEDS: POTASSIUM CHLORIDE 10 MEQ CAPSULE ER 20 MEQ PO (09:33)
[2023-05-23] MEDS: SODIUM CHLORIDE 0.9 % (FLUSH) 10 ML SYRINGE 5 ML IVF ×2 (09:34→19:52)
--- NOTE | 2023-05-23 18:11 | PC.NURSE ---
End of Shift: Pt AO throughout shift, pleasant and cooperative with POC. Independent in room, continent with bowel and bladder. providing food for pt d/t change in taste since starting chemo, reports hospital food being too bland. Pt had a muffin and chocolate milk for breakfast and a chocolate shake for lunch. Pt reports diminished appetite secondary to chemo tx. Right sided port in tact, patent, and functioning well. No s/sx of infection noted. Pt remains on reverse precautions.
[2023-05-23] MEDS: BENZOCAINE/MENTHOL 1 EACH LOZENGE MUCOUS MEM (20:41)
[2023-05-23] MEDS: guaiFENesin 100 MG/ML CUP PO (20:42)
[2023-05-23] MEDS: ACETAMINOPHEN 325 MG TABLET 975 MG PO (22:37)
[2023-05-24] MEDS: PIPERACILLIN/TAZOBACTAM 3.375 GM in 0.9 % SODIUM CHLORIDE Mini-bag 100 ML IVPB ×2 (02:01→08:05)
[2023-05-24] MEDS: SODIUM CHLORIDE 0.9 % (FLUSH) 10 ML SYRINGE IVF ×3 (02:01→06:12)
[2023-05-24 02:11] VITALS: BP 108/70; PULSE 90; RESP 16; TEMP 36.7; O2SAT 96
[2023-05-24] MEDS: HEPARIN 500 UNIT/5 ML SYRINGE IVF ×3 (02:44→08:47)
--- NOTE | 2023-05-24 05:06 | PC.NURSE ---
END OF SHIFT NOTE: PT PLEASANT AND COOPERATIVE. DENIES CP, SOB, N/V. AMBULATES INDEPENDENTLY. VSS ON RA; MAX TEMP 100.3F. LSCTA; INTERMITTENT COUGH WITH THIN SECRETIONS WITH RELIEF FROM GUAIFENESIN. RIGHT CHEST PORT THAT IS ACCESSED AND HEPARIN LOCKED. CALL LIGHT WITHIN PT?S REACH.?
[2023-05-24 07:32] LABS: Basophils Percent Auto 0.3 % (0.0-3.0); Eosinophils Percent Auto 1.4 % (0.0-7.0); Hematocrit 27.4 % (33.0-51.0); Hemoglobin* 9.2 gm/dL (12.0-16.0); Immature Granulocytes Pct Auto 3.5 %; Lymphocytes Percent Auto 39.2 % (20-44); Mean Corpuscular HGB Conc 34 gm/dL (32-36); Mean Corpuscular Hemoglobin 34 pg (26-34); Mean Corpuscular Volume 102 fL (80-100); Monocytes Percent Auto 15.7 % (0.0-11.0); Neutrophils Percent Auto 39.9 % (42.0-72.0); Platelet Count* 91 K/uL (140-440); Red Blood Count 2.69 m/uL (4.00-5.20); White Blood Count* 2.86 K/uL (4.50-11.00)
[2023-05-24 07:34] LABS: Slide Review Reflex Yes
[2023-05-24 07:35] LABS: Slide Review Acceptable Review (Acceptable)
[2023-05-24 08:08] VITALS: BP 110/75; PULSE 92; RESP 18; TEMP 37.2; O2SAT 96
[2023-05-24] MEDS: POTASSIUM CHLORIDE 10 MEQ CAPSULE ER 20 MEQ PO (08:47)
[2023-05-24] MEDS: APIXABAN 5 MG TABLET PO (08:47)
[2023-05-24] MEDS: SODIUM CHLORIDE 0.9 % (FLUSH) 10 ML SYRINGE 5 ML IVF (08:47)
--- NOTE | 2023-05-24 10:38 | P.DS_ITS ---
DS: Providers Provider Date Seen: 05/24/23 Date of admission: 05/21/23 14:36 Primary care physician: Fe Lang PA-C Admitting Clinician: Ashley Richardson MD Attending Physician on discharge: Ashley Richardson MD Date of Discharge: 05/24/23 DS: Diagnosis Discharge Diagnosis (1) Neutropenic fever: Status: Acute Problem details: - No definite obvious source for fever, ANC of 0 on admission, 1.10 on discharge - currently BCx NGTD, reassuring CT C/A/P, CT neck (2) Pancytopenia: Status: Acute Problem details: - iatrogenic - Hgb 7 on 05/22, s/p transfusion of 1U PRBCs on 05/22, discharge Hgb >9 (3) Pulmonary emboli: Status: Acute Problem details: - incidentally noted on CT chest 05/21/2023 during evaluation for neutropenic fever - Apixaban initiated 05/21 (4) Breast cancer: Status: Acute Problem details: - follows with Oncology locally, diagnosed 01/30 - recently started first cycle of Adriamycin and Cytoxan, also received Neupogen (5) Long QT interval syndrome: Status: Acute Problem details: - noted in 2014 while on SSRI, resolved on 01/30 EKG DS: Summary Hospital Course Hospital Course: Yazmin is a very pleasant 58-year-old female who was admitted to the hospital on 05/21 for neutropenic fever. She is currently undergoing chemotherapy for breast cancer. No nidus of infection was noted on admission imaging; she was empirically treated with Zosyn and cultures remained negative throughout stay. She was incidentally noted to have R-sided PEs on CTA in the ED, Eliquis initiated. Yazmin felt significantly improved on hospital day 2, and was fever free for >24 hours on hospital day 3, felt back to baseline and requesting discharge home. On day of discharge, her ANC was up to 1.10. Upon discharge, she will continue Eliquis for PE therapy and Augmentin for antibiotic therapy. Levaquin was considered but ultimately deferred given patient's history of long QT syndrome while on an SSRI in 2014. She is also on prn antiemetics. Patient felt comfortable discharging home with , will see Oncology early next week for follow-up. Return precautions discussed. Time Spent with Patient Time attestation: Total time spent providing and/or coordinating discharge services: Time spent: Greater than 30 minutes Specific discharge activities: Medication reconciliation, Education, care coordination Exam Narrative: Exam Narrative: GEN: Alert and oriented, nontoxic in appearance HEENT: EOMIs bilaterally, no scleral icterus CV: RRR, No concerning murmurs R: LCTA bilaterally without concerning wheezing, air movement adequate Ext: wwp, no concerning edema Skin: No concerning skin lesions or rashes on exposed skin Neuro: No focal deficits Psych: Appropriate Const: Vital Signs, click to edit/add: Vital Signs - 24 hr 05/23/23 11:00 05/23/23 15:00 05/23/23 15:00 Temperature 98.7 F 98.7 F Pulse Rate [Pulse Oximeter] 105 H 96 96 Respiratory Rate 18 18 18 Blood Pressure [Ri ght Arm] 113/63 113/64 Pulse Oximetry 95 95 Oxygen Delivery Me thod Room Air Room Air 05/23/23 19:00 05/23/23 21:20 05/23/23 22:37 Temperature 98.8 F 100.2 F H Pulse Rate [Pulse Oximeter] 105 H 105 H Respiratory Rate 16 16 Blood Pressure [Ri ght Arm] 120/71 Pulse Oximetry 96 Oxygen Delivery Me thod Room Air 05/23/23 22:47 05/24/23 02:11 05/24/23 08:08 Temperature 100.3 F H 98.1 F 98.9 F Pulse Rate [Pulse Oximeter] 98 90 92 Respiratory Rate 16 16 18 Blood Pressure [Ri ght Arm] 105/67 108/70 110/75 Pulse Oximetry 96 96 96 Oxygen Delivery Me thod Room Air Room Air Room Air DS: Data Data Completed and Pending Labs on day of discharge: Labs from last 24 hours 05/24/23 06:15 WBC 2.86 L RBC 2.69 L Hgb 9.2 L Hct 27.4 L MCV 102 H MCH 34 MCHC 34 RDW Coeff of Sheri 19.0 H Plt Count 91 L Neut % (Auto) 39.9 L Lymph % (Auto) 39.2 [place] % (Auto) 15.7 H Eos % (Auto) 1.4 Baso % (Auto) 0.3 Neut # (Auto) 1.10 L Lymph # (Auto) 1.10 [place] # (Auto) 0.40 Eos # (Auto) 0.00 Baso # (Auto) 0.00 Abs Immat Gran (auto) 0.10 Imm/Tot Granulo (auto) 3.5 Diff Slide Review Acceptable Review Preliminary micro results at discharge 05/22/23 17:25 Blood Culture - Preliminary Blood NO GROWTH AFTER 24 HOURS 05/22/23 17:29 Blood Culture - Preliminary Blood NO GROWTH AFTER 24 HOURS 05/21/23 12:58 Blood Culture - Preliminary Blood NO GROWTH AFTER 48 HOURS 05/21/23 12:00 Blood Culture - Preliminary Blood NO GROWTH AFTER 48 HOURS 05/22/23 17:30 Urine Culture - Preliminary Urine,Clean Catch No growth. Discharge Plan Discharge Disposition: Home, Self-Care Date of Admission: 05/21/23 14:36 Attending Provider on Discharge: Ashley Richardson Primary Care Provider: Fe Lang Condition: Stable Anticipated Discharge Date/Time: 05/24/23 10:34 Discharge Medications: New Eliquis 5 mg Tablet 5 mg PO BID Qty: 60 0RF Rx Instructions: 2 tabs po BID x3 days, then 1 tab po BID amoxicillin-pot clavulanate 875-125 mg tablet 1 tab PO BID Qty: 10 0RF Continued loperamide [Imodium A-D] 2 mg capsule 2 mg PO Q6H PRN ondansetron HCl 4 mg tablet 4 mg PO Q6H PRN (Reason: nausea) Rx Instructions: Take for nausea related to chemotherapy if compazine (prochlorperazine) in effective. cholecalciferol (vitamin D3) 25 mcg (1,000 unit) capsule 25 mcg PO DAILY PRN CBD chewies PO famotidine 20 mg tablet 20 mg PO DAILY PRN Rx Instructions: Take 1 tab in the am, 30 minutes before breakfast while taking prednisone to prevent heartburn. If uncontrolled, may add second dose 30 minutes before dinner. gabapentin 100 mg capsule 100 mg PO QHS Qty: 60 1RF potassium chloride 20 mEq tablet extended release 20 meq PO .COMPLEX Qty: 90 0RF Rx Instructions: Take 1 tab daily Gaviscon 80-14.2 mg tablet,chewable 2 tab PO ACHS PRN (Reason: heartburn) prochlorperazine maleate 10 mg tablet 10 mg PO TID PRN (Reason: nausea) Qty: 45 1RF Rx Instructions: Take as directed for control/prevention of chemotherapy related nausea Magic Mouthwash (Lidocaine/Benadryl/Maalox) 120 mL suspension 5 ml PO QID PRN (Reason: mucositis pain) Qty: 120 0RF Rx Instructions: Lidocaine Viscous 2 % mucosal solution 40 mL; Maalox 200 mg-200 mg-20 mg/5 mL oral suspension 40 mL; Benadryl 12.5 mg/5 mL oral elixir 40 mL; Per 120 mL SWISH, hold AND SPIT. MAY COMPOUND IF FIRST PRODUCT IS NOT AVAILABLE. Discharge Orders: Discharge Order (Routine); Ordered 05/24/23 Ordered By: Ashley Richardson Patient Education: Amoxicillin/Clavulanate Potassium (By mouth), Apixaban (By mouth), Neutropenia (DC) Additional Instructions: See Oncology Friday to go over hospitalization findings and return to work. Blood thinner and antibiotics sent to [facility]. Activity Level: No strenuous activity Discharge Diet: Regular Follow Up Appointments: Fe Lang PA-C [Primary Care Provider] - Sherley Taylor APRN [Advanced Practice Nurse] - (See one of the Oncology providers on FRIDAY, 05/27) Forms: [facility] Info Instructions
[2023-05-24 11:35] VITALS: BP 116/63; PULSE 85; RESP 18; TEMP 37.2
--- NOTE | 2023-05-24 12:04 | P.IMPN_ITS ---
Progress Note: A&P Assessment and plan (1) Neutropenic fever: Problem details: - No definite obvious source for fever, ANC of 0 on admission, up to 0.3 05/23 - Continue Zosyn - currently BCx NGTD, reassuring CT C/A/P, CT neck Status: Acute (2) Breast cancer: Problem details: - follows with Oncology locally, diagnosed 01/30 - recently started first cycle of Adriamycin and Cytoxan, also received Neupogen Status: Acute (3) Pulmonary emboli: Problem details: - incidentally noted on CT chest 05/21/2023 during evaluation for neutropenic fever - Apixaban initiated 05/21 Status: Acute (4) Pancytopenia: Problem details: - iatrogenic - Hgb 7 on 05/22, s/p transfusion of 1U PRBCs on 05/22 Status: Acute Plan - per above - updated at bedside, questions answered Subjective Date Seen: 05/23/23 Interval history: Yazmin is feeling better today after blood transfusion. Her ANC is increasing, but she still had fevers up to 101 last night. Blood and urine cultures remain negative. Exam Narrative: Exam Narrative: GEN: Alert and oriented HEENT: EOMIs bilaterally, no scleral icterus CV: RRR, No concerning murmurs R: LCTA bilaterally without concerning wheezing, rales, or rhonchi Ext: No concerning edema Neuro: Nonfocal Psych: Appropriate Const: Vital Signs, click to edit/add: Vital Signs - 24 hr 05/23/23 15:00 05/23/23 15:00 05/23/23 19:00 Temperature 98.7 F 98.8 F Pulse Rate Pulse Rate [Pulse Oximeter] 96 96 105 H Respiratory Rate 18 18 16 Blood Pressure Blood Pressure [Ri t Arm] 113/64 120/71 Pulse Oximetry 95 96 Oxygen Delivery Me thod Room Air Room Air 05/23/23 21:20 05/23/23 22:37 05/23/23 22:47 Temperature 100.2 F H 100.3 F H Pulse Rate Pulse Rate [Pulse Oximeter] 105 H 98 Respiratory Rate 16 16 Blood Pressure Blood Pressure [Ri t Arm] 105/67 Pulse Oximetry 96 Oxygen Delivery Me thod Room Air 05/24/23 02:11 05/24/23 08:08 05/24/23 11:35 Temperature 98.1 F 98.9 F 98.9 F Pulse Rate 85 Pulse Rate [Pulse Oximeter] 90 92 Respiratory Rate 16 18 18 Blood Pressure 116/63 Blood Pressure [Ri ght Arm] 108/70 110/75 Pulse Oximetry 96 96 Oxygen Delivery Me thod Room Air Room Air Labs Labs: Laboratory Results - last 24 hr 05/24/23 06:15 WBC 2.86 L RBC 2.69 L Hgb 9.2 L Hct 27.4 L MCV 102 H MCH 34 MCHC 34 RDW Coeff of Sheri 19.0 H Plt Count 91 L Neut % (Auto) 39.9 L Lymph % (Auto) 39.2 [place] % (Auto) 15.7 H Eos % (Auto) 1.4 Baso % (Auto) 0.3 Neut # (Auto) 1.10 L Lymph # (Auto) 1.10 [place] # (Auto) 0.40 Eos # (Auto) 0.00 Baso # (Auto) 0.00 Abs Immat Gran (auto) 0.10 Imm/Tot Granulo (auto) 3.5 Diff Slide Review Acceptable Review
== END 2023-05-24 11:08 | disposition home or self-care (01) | DRG 660 ==
LOC: ED 12:04 → MEDSURG 14:27
PROVIDERS: Family Medicine; Admitting Provider Family Medicine; Emergency Provider Emergency Medicine; PCP Student in an Organized Health Care Education/Training Program; Visit Provider Family Medicine
DX: D70.1 Agranulocytosis secondary to cancer chemotherapy (principal); T45.1X5A Adverse effect of antineoplastic and immunosuppressive drugs, initial encounter; C50.412 Malignant neoplasm of upper-outer quadrant of left female breast; D61.810 Antineoplastic chemotherapy induced pancytopenia; R50.81 Fever presenting with conditions classified elsewhere; I26.99 Other pulmonary embolism without acute cor pulmonale; I45.81 Long QT syndrome; Z17.1 Estrogen receptor negative status [ER-]; G62.0 Drug-induced polyneuropathy; R63.4 Abnormal weight loss
CPT/HCPCS: 36415; 36430; 70491; 71045; 71260; 74177; 80048; 80053; 80076; 81001; 81003; 81015; 83605; 85018; 85025; 86140; 86308; 86617; 86850; 86900; 86901; 86922; 87040; 87086; 87493; 87631; 87651; 99284; 99285; A9270; J1642; J2405; J2543; J7030; P9016; Q9967

== ENCOUNTER 2023-07-17 13:00 | Outpatient (RCR) | payer BC, SELFPAY ==
--- NOTE | 2023-01-30 15:55 | ONC.NURNOTE ---
Accompanied patient to her oncology consultation. Assessed patients veins and discussed port-a-cath placement. The following appointments were scheduled and communicated to patient: 02/03: US and possible biopsy of axilla lymph nodes 02/03: EKG at 4PM as a nurse visit in clinic 02/04: port placement with Dr. Vaughan 02/05: chemotherapy teach at 1PM +labs 02/06: new start chemotherapy A detailed copy of this schedule will be given to patient next week. Patient verbalizes understanding.
--- NOTE | 2023-02-05 14:26 | ONC.NURNOTE ---
I met with patient and spouse for chemotherapy teaching. Contents of the chemotherapy binder reviewed and orientation to infusion center given. Side effects of treatment discussed as well as what to report to provider and how to contact provider both during clinic hours and after hours. Patient encouraged to call with questions or concerns.
[2023-02-05 14:43] LABS: Chloride* 108 mmol/L (96-114)
[2023-02-05 14:44] LABS: Albumin* 4.6 g/dL (3.3-5.0); Potassium* 4.2 mmol/L (3.6-5.1); Sodium* 140 mmol/L (135-149)
[2023-02-05 14:46] LABS: Bilirubin Total* 0.5 mg/dL (0.1-1.5); Creatinine* 0.9 mg/dL (0.5-1.5); Est. Creatinine Clearance* 58.12; Estimated Glomerular Filt Rate 74 ml/min
[2023-02-05 14:47] LABS: Alanine Aminotransferase* 26 U/L (4-35); Alkaline Phosphatase* 87 U/L (40-150); Aspartate Amino Transferase* 25 U/L (12-35); Blood Urea Nitrogen* 14 mg/dL (7-30); Carbon Dioxide* 26 mmol/L (20-32); Glucose* 95 mg/dL (60-115); Total Protein* 7.3 g/dL (6.0-8.3)
[2023-02-05 15:36] LABS: Thyroid Stimulating Hormone* 0.363 uIU/mL (0.270-4.20)
--- NOTE | 2023-02-07 13:19 | URNOTE ---
Per [facility], Carboplatin (V53250, Taxol (J9267) and Pembrolizumab (J9271) have been approved, 02/06/2023-05/01/2023. auth #[id number]
[2023-02-10 08:50] VITALS: BP 106/71; PULSE 74; RESP 16; TEMP 35.9; O2SAT 97
[2023-02-10] MEDS: PEMBROLIZUMAB 200 MG, TUBING PRIMARY 1 EACH, In-line 0.2 micron filter set 1 EACH in 0.... 216 MG IVPB (10:08)
[2023-02-10] MEDS: ONDANSETRON 2 MG/ML inj 8 MG IV (10:41)
[2023-02-10] MEDS: dexAMETHasone 20 MG in 0.9 % SODIUM CHLORIDE 100 ml 100 ML 420 MG IVPB (10:41)
[2023-02-10] MEDS: FAMOTIDINE 20 MG, diphenhydrAMINE 50 MG in 0.9 % SODIUM CHLORIDE 100 ml 100 ML 420 MG IVPB (11:00)
[2023-02-10] MEDS: CARBOplatin 165 MG, TUBING SECONDARY 1 EACH in 0.9 % SODIUM CHLORIDE 250 ml 250 ML 533 MG IVPB (12:29)
[2023-02-17] MEDS: dexAMETHasone 20 MG in 0.9 % SODIUM CHLORIDE 100 ml 100 ML 408 MG IVPB (11:25)
[2023-02-17 11:30] VITALS: BP 107/71; PULSE 56; RESP 18; O2SAT 96
[2023-02-17 12:03] LABS: Basophils Absolute Auto 0.04 K/uL (0.00-0.30); Basophils Percent Auto 0.6 % (0.0-3.0); Eosinophils Percent Auto 2.9 % (0.0-7.0); Hematocrit 37.7 % (33.0-51.0); Hemoglobin* 12.3 gm/dL (12.0-16.0); Immature Granulocytes Abs Auto 0.01 K/uL (0.00-0.30); Immature Granulocytes Pct Auto 0.1 %; Lymphocytes Absolute Auto 2.15 K/uL (0.90-2.90); Lymphocytes Percent Auto 30.8 % (20-44); Mean Corpuscular HGB Conc 33 gm/dL (32-36); Mean Corpuscular Hemoglobin 30 pg (26-34); Mean Corpuscular Volume 93 fL (80-100); Neutrophils Absolute Auto 4.15 K/uL (1.7-7.0); Neutrophils Percent Auto 59.6 % (42.0-72.0); Platelet Count* 291 K/uL (140-440); RDW Coefficient of Variation % 13.3 % (11.5-15.5); Red Blood Count 4.05 m/uL (4.00-5.20); White Blood Count* 6.97 K/uL (4.50-11.00)
[2023-02-17 12:07] LABS: Slide Review Reflex No
[2023-02-17 12:32] LABS: Albumin* 4.2 g/dL (3.3-5.0)
[2023-02-17 12:33] LABS: Chloride* 107 mmol/L (96-114); Sodium* 137 mmol/L (135-149)
[2023-02-17 12:35] LABS: Bilirubin Total* 0.6 mg/dL (0.1-1.5); Carbon Dioxide* 24 mmol/L (20-32); Creatinine* 0.8 mg/dL (0.5-1.5); Est. Creatinine Clearance* 65.38; Estimated Glomerular Filt Rate 85 ml/min
[2023-02-17 12:36] LABS: Alanine Aminotransferase* 26 U/L (4-35); Alkaline Phosphatase* 75 U/L (40-150); Aspartate Amino Transferase* 22 U/L (12-35); Blood Urea Nitrogen* 13 mg/dL (7-30); Calcium* 8.7 mg/dL (8.4-10.6); Glucose* 99 mg/dL (60-115); Total Protein* 6.9 g/dL (6.0-8.3)
[2023-02-17] MEDS: ONDANSETRON 2 MG/ML inj 8 MG IV (13:27)
[2023-02-17] MEDS: FAMOTIDINE 20 MG, diphenhydrAMINE 50 MG in 0.9 % SODIUM CHLORIDE 100 ml 100 ML 105 MG IVPB (14:02)
[2023-02-17] MEDS: CARBOplatin 180 MG, TUBING SECONDARY 1 EACH in 0.9 % SODIUM CHLORIDE 250 ml 250 ML 536 MG IVPB (16:15)
[2023-02-24 11:19] LABS: Basophils Percent Auto 0.7 % (0.0-3.0); Eosinophils Percent Auto 2.5 % (0.0-7.0); Hematocrit 36.7 % (33.0-51.0); Hemoglobin* 12.2 gm/dL (12.0-16.0); Immature Granulocytes Pct Auto 0.2 %; Lymphocytes Percent Auto 37.8 % (20-44); Mean Corpuscular HGB Conc 33 gm/dL (32-36); Mean Corpuscular Hemoglobin 31 pg (26-34); Mean Corpuscular Volume 93 fL (80-100); Monocytes Percent Auto 7.1 % (0.0-11.0); Neutrophils Percent Auto 51.7 % (42.0-72.0); Platelet Count* 299 K/uL (140-440); RDW Coefficient of Variation % 13.6 % (11.5-15.5); Red Blood Count 3.96 m/uL (4.00-5.20); White Blood Count* 4.37 K/uL (4.50-11.00)
[2023-02-24 11:25] LABS: Slide Review Reflex No
[2023-02-24 11:37] LABS: Albumin* 4.3 g/dL (3.3-5.0); Chloride* 107 mmol/L (96-114); Potassium* 4.3 mmol/L (3.6-5.1); Sodium* 137 mmol/L (135-149)
[2023-02-24 11:40] LABS: Alanine Aminotransferase* 26 U/L (4-35); Alkaline Phosphatase* 75 U/L (40-150); Aspartate Amino Transferase* 21 U/L (12-35); Bilirubin Total* 0.6 mg/dL (0.1-1.5); Blood Urea Nitrogen* 11 mg/dL (7-30); Carbon Dioxide* 20 mmol/L (20-32); Creatinine* 0.8 mg/dL (0.5-1.5); Est. Creatinine Clearance* 65.38; Estimated Glomerular Filt Rate 85 ml/min; Glucose* 105 mg/dL (60-115); Total Protein* 6.7 g/dL (6.0-8.3)
[2023-02-24 11:50] LABS: Calcium* 8.8 mg/dL (8.4-10.6)
[2023-02-24] MEDS: ONDANSETRON 2 MG/ML inj 8 MG IV (12:28)
[2023-02-24] MEDS: dexAMETHasone 20 MG in 0.9 % SODIUM CHLORIDE 100 ml 100 ML 408 MG IVPB (12:29)
[2023-02-24] MEDS: 0.9 % SODIUM CHLORIDE 250 ml IV (12:34)
[2023-02-24] MEDS: FAMOTIDINE 20 MG, diphenhydrAMINE 50 MG in 0.9 % SODIUM CHLORIDE 100 ml 100 ML 309 MG IVPB (12:49)
[2023-02-24] MEDS: CARBOplatin 180 MG, TUBING SECONDARY 1 EACH in 0.9 % SODIUM CHLORIDE 250 ml 250 ML 536 MG IVPB (14:29)
[2023-03-03 10:09] VITALS: BP 110/72; PULSE 91; RESP 16; TEMP 35.9; O2SAT 96
[2023-03-03 10:55] LABS: Albumin* 4.2 g/dL (3.3-5.0); Chloride* 107 mmol/L (96-114); Potassium* 4.2 mmol/L (3.6-5.1); Sodium* 138 mmol/L (135-149)
[2023-03-03 10:58] LABS: Alanine Aminotransferase* 27 U/L (4-35); Alkaline Phosphatase* 71 U/L (40-150); Aspartate Amino Transferase* 21 U/L (12-35); Basophils Absolute Auto 0.02 K/uL (0.00-0.30); Basophils Percent Auto 0.4 % (0.0-3.0); Bilirubin Total* 0.5 mg/dL (0.1-1.5); Blood Urea Nitrogen* 11 mg/dL (7-30); Carbon Dioxide* 23 mmol/L (20-32); Creatinine* 0.7 mg/dL (0.5-1.5); Eosinophils Absolute Auto 0.08 K/uL (0.00-0.50); Eosinophils Percent Auto 1.6 % (0.0-7.0); Est. Creatinine Clearance* 74.72; Estimated Glomerular Filt Rate 100 ml/min; Glucose* 115 mg/dL (60-115); Hematocrit 36.1 % (33.0-51.0); Immature Granulocytes Abs Auto 0.05 K/uL (0.00-0.30); Lymphocytes Absolute Auto 1.68 K/uL (0.90-2.90); Lymphocytes Percent Auto 33.8 % (20-44); Mean Corpuscular HGB Conc 33 gm/dL (32-36); Mean Corpuscular Hemoglobin 31 pg (26-34); Mean Corpuscular Volume 94 fL (80-100); Neutrophils Absolute Auto 2.74 K/uL (1.7-7.0); Neutrophils Percent Auto 55.2 % (42.0-72.0); Platelet Count* 293 K/uL (140-440); RDW Coefficient of Variation % 14.2 % (11.5-15.5); Red Blood Count 3.86 m/uL (4.00-5.20); Total Protein* 6.8 g/dL (6.0-8.3); White Blood Count* 4.97 K/uL (4.50-11.00)
[2023-03-03 10:59] LABS: Calcium* 8.5 mg/dL (8.4-10.6)
[2023-03-03 11:01] LABS: Slide Review Reflex No
[2023-03-03 11:29] LABS: Thyroid Stimulating Hormone* 0.519 uIU/mL (0.270-4.20)
[2023-03-03] MEDS: PEMBROLIZUMAB 200 MG, TUBING PRIMARY 1 EACH, In-line 0.2 micron filter set 1 EACH in 0.... 216 MG IVPB (11:43)
[2023-03-03] MEDS: dexAMETHasone 20 MG in 0.9 % SODIUM CHLORIDE 100 ml 100 ML 408 MG IVPB (12:22)
[2023-03-03] MEDS: ONDANSETRON 2 MG/ML inj 8 MG IV (12:22)
[2023-03-03] MEDS: FAMOTIDINE 20 MG, diphenhydrAMINE 50 MG in 0.9 % SODIUM CHLORIDE 100 ml 100 ML 309 MG IVPB (12:45)
[2023-03-10 11:44] VITALS: BP 104/71; PULSE 74; RESP 16; TEMP 37.3; O2SAT 95
[2023-03-10 11:51] LABS: Albumin* 4.2 g/dL (3.3-5.0); Chloride* 106 mmol/L (96-114); Potassium* 4.3 mmol/L (3.6-5.1); Sodium* 137 mmol/L (135-149)
[2023-03-10 11:54] LABS: Alanine Aminotransferase* 26 U/L (4-35); Alkaline Phosphatase* 76 U/L (40-150); Aspartate Amino Transferase* 19 U/L (12-35); Bilirubin Total* 0.3 mg/dL (0.1-1.5); Blood Urea Nitrogen* 13 mg/dL (7-30); Carbon Dioxide* 22 mmol/L (20-32); Creatinine* 0.8 mg/dL (0.5-1.5); Est. Creatinine Clearance* 65.38; Estimated Glomerular Filt Rate 85 ml/min; Glucose* 103 mg/dL (60-115)
[2023-03-10 11:55] LABS: Calcium* 8.9 mg/dL (8.4-10.6)
[2023-03-10 12:27] LABS: Basophils Absolute Auto 0.03 K/uL (0.00-0.30); Basophils Percent Auto 0.5 % (0.0-3.0); Eosinophils Absolute Auto 0.08 K/uL (0.00-0.50); Eosinophils Percent Auto 1.5 % (0.0-7.0); Hematocrit 36.3 % (33.0-51.0); Hemoglobin* 11.9 gm/dL (12.0-16.0); Immature Granulocytes Abs Auto 0.02 K/uL (0.00-0.30); Immature Granulocytes Pct Auto 0.4 %; Lymphocytes Absolute Auto 1.71 K/uL (0.90-2.90); Lymphocytes Percent Auto 31.2 % (20-44); Mean Corpuscular HGB Conc 33 gm/dL (32-36); Mean Corpuscular Hemoglobin 31 pg (26-34); Mean Corpuscular Volume 94 fL (80-100); Monocytes Percent Auto 6.4 % (0.0-11.0); Neutrophils Absolute Auto 3.29 K/uL (1.7-7.0); Platelet Count* 243 K/uL (140-440); RDW Coefficient of Variation % 14.6 % (11.5-15.5); Red Blood Count 3.87 m/uL (4.00-5.20); White Blood Count* 5.48 K/uL (4.50-11.00)
[2023-03-10 12:28] LABS: Slide Review Reflex No
[2023-03-10] MEDS: dexAMETHasone 20 MG in 0.9 % SODIUM CHLORIDE 100 ml 100 ML 408 MG IVPB (13:01)
[2023-03-10] MEDS: ONDANSETRON 2 MG/ML inj 8 MG IV (13:01)
[2023-03-10] MEDS: FAMOTIDINE 20 MG, diphenhydrAMINE 50 MG in 0.9 % SODIUM CHLORIDE 100 ml 100 ML 309 MG IVPB (13:30)
[2023-03-10] MEDS: CARBOplatin 165 MG, TUBING SECONDARY 1 EACH in 0.9 % SODIUM CHLORIDE 250 ml 250 ML 533 MG IVPB (15:17)
[2023-03-17 11:06] VITALS: BP 110/76; PULSE 86; RESP 16; TEMP 37; O2SAT 98
[2023-03-17 11:23] LABS: Basophils Percent Auto 0.7 % (0.0-3.0); Eosinophils Percent Auto 2.8 % (0.0-7.0); Hematocrit 33.7 % (33.0-51.0); Hemoglobin* 11.2 gm/dL (12.0-16.0); Immature Granulocytes Pct Auto 0.5 %; Lymphocytes Percent Auto 35.8 % (20-44); Mean Corpuscular HGB Conc 33 gm/dL (32-36); Mean Corpuscular Hemoglobin 31 pg (26-34); Mean Corpuscular Volume 94 fL (80-100); Monocytes Percent Auto 7.6 % (0.0-11.0); Neutrophils Percent Auto 52.6 % (42.0-72.0); Platelet Count* 201 K/uL (140-440); RDW Coefficient of Variation % 15.1 % (11.5-15.5); Red Blood Count 3.58 m/uL (4.00-5.20); White Blood Count* 4.22 K/uL (4.50-11.00)
[2023-03-17 11:24] LABS: Slide Review Reflex No
[2023-03-17 12:07] LABS: Albumin* 4.2 g/dL (3.3-5.0); Chloride* 105 mmol/L (96-114); Sodium* 137 mmol/L (135-149)
[2023-03-17 12:08] LABS: Potassium* 4.1 mmol/L (3.6-5.1)
[2023-03-17 12:10] LABS: Alanine Aminotransferase* 29 U/L (4-35); Alkaline Phosphatase* 73 U/L (40-150); Aspartate Amino Transferase* 21 U/L (12-35); Bilirubin Total* 0.6 mg/dL (0.1-1.5); Blood Urea Nitrogen* 12 mg/dL (7-30); Carbon Dioxide* 25 mmol/L (20-32); Creatinine* 0.7 mg/dL (0.5-1.5); Est. Creatinine Clearance* 74.72; Estimated Glomerular Filt Rate 100 ml/min; Glucose* 102 mg/dL (60-115); Total Protein* 6.9 g/dL (6.0-8.3)
[2023-03-17 12:11] LABS: Calcium* 8.9 mg/dL (8.4-10.6)
[2023-03-17] MEDS: ONDANSETRON 2 MG/ML inj 8 MG IV (12:52)
[2023-03-17] MEDS: dexAMETHasone 20 MG in 0.9 % SODIUM CHLORIDE 100 ml 100 ML 408 MG IVPB (12:53)
[2023-03-17] MEDS: FAMOTIDINE 20 MG, diphenhydrAMINE 50 MG in 0.9 % SODIUM CHLORIDE 100 ml 100 ML 309 MG IVPB (13:15)
[2023-03-17] MEDS: SODIUM CHLORIDE 0.9% IVPB (14:38)
[2023-03-17] MEDS: CARBOPLATIN IVPB (14:38)
[2023-03-17] MEDS: TUBING SECONDARY IVPB (14:38)
[2023-03-24 08:24] VITALS: BP 100/70; PULSE 91; RESP 16; TEMP 36.3; O2SAT 98
[2023-03-24 08:34] LABS: Basophils Percent Auto 0.5 % (0.0-3.0); Eosinophils Percent Auto 3.5 % (0.0-7.0); Hematocrit 34.5 % (33.0-51.0); Hemoglobin* 11.3 gm/dL (12.0-16.0); Immature Granulocytes Pct Auto 0.5 %; Lymphocytes Percent Auto 38.5 % (20-44); Mean Corpuscular HGB Conc 33 gm/dL (32-36); Mean Corpuscular Hemoglobin 31 pg (26-34); Mean Corpuscular Volume 95 fL (80-100); Monocytes Percent Auto 5.4 % (0.0-11.0); Neutrophils Percent Auto 51.6 % (42.0-72.0); Platelet Count* 248 K/uL (140-440); RDW Coefficient of Variation % 15.5 % (11.5-15.5); Red Blood Count 3.63 m/uL (4.00-5.20); White Blood Count* 4.05 K/uL (4.50-11.00)
[2023-03-24 08:43] LABS: Slide Review Reflex No
[2023-03-24 08:47] LABS: Albumin* 4.2 g/dL (3.3-5.0); Chloride* 106 mmol/L (96-114); Potassium* 3.6 mmol/L (3.6-5.1); Sodium* 139 mmol/L (135-149)
[2023-03-24 08:49] LABS: Creatinine* 0.7 mg/dL (0.5-1.5); Est. Creatinine Clearance* 74.72; Estimated Glomerular Filt Rate 100 ml/min
[2023-03-24 08:50] LABS: Alanine Aminotransferase* 27 U/L (4-35); Alkaline Phosphatase* 70 U/L (40-150); Aspartate Amino Transferase* 22 U/L (12-35); Bilirubin Total* 0.6 mg/dL (0.1-1.5); Blood Urea Nitrogen* 10 mg/dL (7-30); Carbon Dioxide* 23 mmol/L (20-32); Glucose* 131 mg/dL (60-115)
[2023-03-24 08:51] LABS: Calcium* 9.1 mg/dL (8.4-10.6)
[2023-03-24] MEDS: 0.9 % SODIUM CHLORIDE 250 ml IV (10:16)
[2023-03-24] MEDS: PEMBROLIZUMAB 200 MG, TUBING PRIMARY 1 EACH, In-line 0.2 micron filter set 1 EACH in 0.... 216 MG IVPB (10:25)
[2023-03-24] MEDS: ONDANSETRON 2 MG/ML inj 8 MG IV (10:56)
[2023-03-24] MEDS: dexAMETHasone 20 MG in 0.9 % SODIUM CHLORIDE 100 ml 100 ML 408 MG IVPB (10:57)
[2023-03-24] MEDS: FAMOTIDINE 20 MG, diphenhydrAMINE 50 MG in 0.9 % SODIUM CHLORIDE 100 ml 100 ML 412 MG IVPB (11:17)
[2023-03-24] MEDS: CARBOPLATIN IVPB (12:59)
[2023-03-24] MEDS: SODIUM CHLORIDE 0.9% IVPB (12:59)
[2023-03-24] MEDS: TUBING SECONDARY IVPB (12:59)
[2023-03-31 11:09] VITALS: BP 98/70; PULSE 83; RESP 16; TEMP 36.4; O2SAT 97
[2023-03-31 11:25] LABS: Basophils Percent Auto 0.3 % (0.0-3.0); Eosinophils Percent Auto 0.9 % (0.0-7.0); Hematocrit 30.6 % (33.0-51.0); Hemoglobin* 10.2 gm/dL (12.0-16.0); Lymphocytes Percent Auto 40.3 % (20-44); Mean Corpuscular HGB Conc 33 gm/dL (32-36); Mean Corpuscular Hemoglobin 32 pg (26-34); Mean Corpuscular Volume 95 fL (80-100); Monocytes Percent Auto 8.2 % (0.0-11.0); Platelet Count* 259 K/uL (140-440); RDW Coefficient of Variation % 16.2 % (11.5-15.5); Red Blood Count 3.21 m/uL (4.00-5.20)
[2023-03-31 11:26] LABS: Immature Granulocytes Pct Auto 0.3 %
[2023-03-31 11:28] LABS: Slide Review Reflex No
[2023-03-31 11:37] LABS: Chloride* 108 mmol/L (96-114); Potassium* 3.9 mmol/L (3.6-5.1); Sodium* 138 mmol/L (135-149)
[2023-03-31 11:40] LABS: Alanine Aminotransferase* 24 U/L (4-35); Alkaline Phosphatase* 73 U/L (40-150); Aspartate Amino Transferase* 20 U/L (12-35); Bilirubin Total* 0.6 mg/dL (0.1-1.5); Blood Urea Nitrogen* 10 mg/dL (7-30); Carbon Dioxide* 24 mmol/L (20-32); Creatinine* 0.7 mg/dL (0.5-1.5); Est. Creatinine Clearance* 74.72; Estimated Glomerular Filt Rate 100 ml/min; Glucose* 99 mg/dL (60-115); Total Protein* 6.7 g/dL (6.0-8.3)
[2023-03-31 11:41] LABS: Calcium* 8.7 mg/dL (8.4-10.6)
[2023-03-31] MEDS: ONDANSETRON 2 MG/ML inj 8 MG IV (12:32)
[2023-03-31] MEDS: dexAMETHasone 20 MG in 0.9 % SODIUM CHLORIDE 100 ml 100 ML 408 MG IVPB (12:32)
[2023-03-31] MEDS: FAMOTIDINE 20 MG, diphenhydrAMINE 50 MG in 0.9 % SODIUM CHLORIDE 100 ml 100 ML 309 MG IVPB (12:56)
[2023-03-31] MEDS: TUBING SECONDARY IVPB (14:39)
[2023-03-31] MEDS: CARBOPLATIN IVPB (14:39)
[2023-03-31] MEDS: SODIUM CHLORIDE 0.9% IVPB (14:39)
[2023-03-31] MEDS: 0.9 % SODIUM CHLORIDE 250 ml IV (15:00)
[2023-03-31] MEDS: SODIUM CHLORIDE 0.9 % (FLUSH) 10 ML SYRINGE IVF (15:01)
[2023-03-31] MEDS: HEPARIN 500 UNIT/5 ML SYRINGE IVF (15:01)
[2023-04-08 11:45] LABS: Basophils Percent Auto 0.3 % (0.0-3.0); Eosinophils Percent Auto 1.2 % (0.0-7.0); Hematocrit 30.7 % (33.0-51.0); Hemoglobin* 10.2 gm/dL (12.0-16.0); Immature Granulocytes Pct Auto 0.3 %; Lymphocytes Percent Auto 39.2 % (20-44); Mean Corpuscular HGB Conc 33 gm/dL (32-36); Mean Corpuscular Hemoglobin 32 pg (26-34); Mean Corpuscular Volume 96 fL (80-100); Monocytes Percent Auto 13.1 % (0.0-11.0); Neutrophils Percent Auto 45.9 % (42.0-72.0); Platelet Count* 282 K/uL (140-440); RDW Coefficient of Variation % 17.2 % (11.5-15.5); Red Blood Count 3.21 m/uL (4.00-5.20); White Blood Count* 3.37 K/uL (4.50-11.00)
[2023-04-08 11:55] LABS: Slide Review Reflex No
[2023-04-08 12:04] LABS: Albumin* 4.1 g/dL (3.3-5.0); Chloride* 104 mmol/L (96-114)
[2023-04-08 12:05] LABS: Potassium* 3.9 mmol/L (3.6-5.1); Sodium* 137 mmol/L (135-149)
[2023-04-08 12:07] LABS: Alkaline Phosphatase* 68 U/L (40-150); Aspartate Amino Transferase* 20 U/L (12-35); Bilirubin Total* 0.5 mg/dL (0.1-1.5); Blood Urea Nitrogen* 11 mg/dL (7-30); Carbon Dioxide* 25 mmol/L (20-32); Creatinine* 0.8 mg/dL (0.5-1.5); Est. Creatinine Clearance* 65.38; Estimated Glomerular Filt Rate 85 ml/min; Total Protein* 6.8 g/dL (6.0-8.3)
[2023-04-08 12:08] LABS: Alanine Aminotransferase* 24 U/L (4-35); Calcium* 8.9 mg/dL (8.4-10.6); Glucose* 110 mg/dL (60-115)
[2023-04-08] MEDS: ONDANSETRON 2 MG/ML inj 8 MG IV (12:42)
[2023-04-08] MEDS: dexAMETHasone 20 MG in 0.9 % SODIUM CHLORIDE 100 ml 100 ML 408 MG IVPB (12:50)
[2023-04-08] MEDS: FAMOTIDINE 20 MG, diphenhydrAMINE 50 MG in 0.9 % SODIUM CHLORIDE 100 ml 100 ML 412 MG IVPB (13:09)
[2023-04-08] MEDS: CARBOplatin 180 MG, TUBING SECONDARY 1 EACH in 0.9 % SODIUM CHLORIDE 250 ml 250 ML 536 MG IVPB (14:37)
[2023-04-08] MEDS: SODIUM CHLORIDE 0.9 % (FLUSH) 10 ML SYRINGE IVF (15:13)
[2023-04-08] MEDS: HEPARIN 500 UNIT/5 ML SYRINGE IVF (15:13)
[2023-04-14 08:12] LABS: Basophils Percent Auto 0.4 % (0.0-3.0); Eosinophils Percent Auto 1.8 % (0.0-7.0); Hematocrit 32.5 % (33.0-51.0); Immature Granulocytes Pct Auto 0.4 %; Mean Corpuscular HGB Conc 34 gm/dL (32-36); Mean Corpuscular Hemoglobin 33 pg (26-34); Mean Corpuscular Volume 96 fL (80-100); Monocytes Percent Auto 11.2 % (0.0-11.0); Neutrophils Percent Auto 41.2 % (42.0-72.0); Platelet Count* 272 K/uL (140-440); RDW Coefficient of Variation % 17.9 % (11.5-15.5); Red Blood Count 3.38 m/uL (4.00-5.20); White Blood Count* 2.78 K/uL (4.50-11.00)
[2023-04-14 08:14] LABS: Slide Review Reflex No
[2023-04-14 08:32] LABS: Albumin* 4.3 g/dL (3.3-5.0); Chloride* 103 mmol/L (96-114); Potassium* 3.9 mmol/L (3.6-5.1); Sodium* 136 mmol/L (135-149)
[2023-04-14 08:34] LABS: Creatinine* 0.8 mg/dL (0.5-1.5); Est. Creatinine Clearance* 65.38; Estimated Glomerular Filt Rate 85 ml/min
[2023-04-14 08:35] LABS: Alanine Aminotransferase* 25 U/L (4-35); Alkaline Phosphatase* 70 U/L (40-150); Aspartate Amino Transferase* 23 U/L (12-35); Bilirubin Total* 1.1 mg/dL (0.1-1.5); Blood Urea Nitrogen* 12 mg/dL (7-30); Calcium* 9.2 mg/dL (8.4-10.6); Carbon Dioxide* 23 mmol/L (20-32); Glucose* 108 mg/dL (60-115); Total Protein* 7.1 g/dL (6.0-8.3)
[2023-04-14 16:26] LABS: C.Difficile Negative (Negative); CDIFFEPI 027 PRESUMPTIVE NEGATIVE (Negative)
[2023-04-21 09:37] LABS: Basophils Absolute Auto 0.01 K/uL (0.00-0.30); Basophils Percent Auto 0.1 % (0.0-3.0); Eosinophils Absolute Auto 0.05 K/uL (0.00-0.50); Eosinophils Percent Auto 0.7 % (0.0-7.0); Hematocrit 32.9 % (33.0-51.0); Hemoglobin* 10.7 gm/dL (12.0-16.0); Immature Granulocytes Pct Auto 1.3 %; Lymphocytes Percent Auto 18.2 % (20-44); Mean Corpuscular HGB Conc 33 gm/dL (32-36); Mean Corpuscular Hemoglobin 32 pg (26-34); Mean Corpuscular Volume 99 fL (80-100); Monocytes Percent Auto 16.8 % (0.0-11.0); Neutrophils Percent Auto 62.9 % (42.0-72.0); Platelet Count* 289 K/uL (140-440); RDW Coefficient of Variation % 20.1 % (11.5-15.5); Red Blood Count 3.31 m/uL (4.00-5.20); White Blood Count* 7.63 K/uL (4.50-11.00)
[2023-04-21 09:46] LABS: Slide Review Reflex Yes
[2023-04-21 09:55] LABS: Albumin* 3.9 g/dL (3.3-5.0); Chloride* 105 mmol/L (96-114); Sodium* 138 mmol/L (135-149)
[2023-04-21 09:56] LABS: Potassium* 3.5 mmol/L (3.6-5.1)
[2023-04-21 09:58] LABS: Aspartate Amino Transferase* 23 U/L (12-35); Bilirubin Total* 0.4 mg/dL (0.1-1.5); Blood Urea Nitrogen* 12 mg/dL (7-30); Carbon Dioxide* 27 mmol/L (20-32); Creatinine* 0.8 mg/dL (0.5-1.5); Est. Creatinine Clearance* 65.38; Estimated Glomerular Filt Rate 85 ml/min; Total Protein* 6.4 g/dL (6.0-8.3)
[2023-04-21 09:59] LABS: Alanine Aminotransferase* 24 U/L (4-35); Alkaline Phosphatase* 55 U/L (40-150); Calcium* 8.9 mg/dL (8.4-10.6); Glucose* 110 mg/dL (60-115)
[2023-04-21 10:10] LABS: Slide Review Acceptable Review (Acceptable)
[2023-04-21 10:30] LABS: Thyroid Stimulating Hormone* 0.484 uIU/mL (0.270-4.20)
[2023-04-21] MEDS: 0.9 % SODIUM CHLORIDE 250 ml IV (11:10)
[2023-04-21] MEDS: dexAMETHasone 20 MG in 0.9 % SODIUM CHLORIDE 100 ml 100 ML 420 MG IVPB (11:27)
[2023-04-21] MEDS: ONDANSETRON 2 MG/ML inj 8 MG IV (11:27)
[2023-04-21] MEDS: FAMOTIDINE 20 MG, diphenhydrAMINE 50 MG in 0.9 % SODIUM CHLORIDE 100 ml 100 ML 420 MG IVPB (12:00)
[2023-04-21] MEDS: CARBOplatin 180 MG, TUBING SECONDARY 1 EACH in 0.9 % SODIUM CHLORIDE 250 ml 250 ML 536 MG IVPB (13:38)
[2023-04-21] MEDS: HEPARIN 500 UNIT/5 ML SYRINGE IVF (14:10)
[2023-04-21] MEDS: SODIUM CHLORIDE 0.9 % (FLUSH) 10 ML SYRINGE IVF (14:10)
[2023-04-22 16:13] LABS: Cortisol, Serum 4.4 ug/dL
--- NOTE | 2023-04-24 12:47 | URNOTE ---
Request received for authorization for Doxorubicin (J9000), Cyclophosphamide (J9070), Fosaprepitant (J1453), Palonosetron (J2469)- (review not required) and Pegfilgrastim (J2506), Pembrolizumab (J9271)- (Authorized). Prior authorization is approved from 05/12/2023 to 08/04/2023, per [employer] [facility] on behalf of [employer], order ID/Ref#[id number].
--- NOTE | 2023-04-25 14:31 | ONC.NURNOTE ---
Pt left message wondering which probiotic is recommended. Discussed with Sherley Shoemaker APRN, she recommended Florstar probiotic, kefir milk, or yogurt. [employer] Merchant left message for pt with these recommendations and to call if she has any other questions.
[2023-04-28 08:35] LABS: Basophils Absolute Auto 0.02 K/uL (0.00-0.30); Basophils Percent Auto 0.2 % (0.0-3.0); Eosinophils Absolute Auto 0.14 K/uL (0.00-0.50); Eosinophils Percent Auto 1.5 % (0.0-7.0); Hematocrit 32.5 % (33.0-51.0); Hemoglobin* 10.7 gm/dL (12.0-16.0); Immature Granulocytes Abs Auto 0.08 K/uL (0.00-0.30); Immature Granulocytes Pct Auto 0.9 %; Lymphocytes Absolute Auto 2.17 K/uL (0.90-2.90); Lymphocytes Percent Auto 23.8 % (20-44); Mean Corpuscular HGB Conc 33 gm/dL (32-36); Mean Corpuscular Hemoglobin 33 pg (26-34); Mean Corpuscular Volume 100 fL (80-100); Monocytes Percent Auto 4.8 % (0.0-11.0); Neutrophils Absolute Auto 6.25 K/uL (1.7-7.0); Neutrophils Percent Auto 68.8 % (42.0-72.0); Platelet Count* 259 K/uL (140-440); RDW Coefficient of Variation % 19.7 % (11.5-15.5); Red Blood Count 3.24 m/uL (4.00-5.20)
[2023-04-28 08:41] LABS: Slide Review Reflex No
[2023-04-28 08:57] LABS: Albumin* 3.7 g/dL (3.3-5.0); Chloride* 104 mmol/L (96-114); Potassium* 3.1 mmol/L (3.6-5.1); Sodium* 135 mmol/L (135-149)
[2023-04-28 09:00] LABS: Alanine Aminotransferase* 25 U/L (4-35); Alkaline Phosphatase* 51 U/L (40-150); Aspartate Amino Transferase* 21 U/L (12-35); Bilirubin Total* 0.4 mg/dL (0.1-1.5); Blood Urea Nitrogen* 13 mg/dL (7-30); Carbon Dioxide* 23 mmol/L (20-32); Creatinine* 0.8 mg/dL (0.5-1.5); Est. Creatinine Clearance* 64.58; Estimated Glomerular Filt Rate 84 ml/min; Glucose* 174 mg/dL (60-115); Total Protein* 6.1 g/dL (6.0-8.3)
[2023-04-28 09:01] LABS: Calcium* 8.7 mg/dL (8.4-10.6)
[2023-04-28 09:18] VITALS: BP 110/71
--- NOTE | 2023-04-28 09:19 | URNOTE ---
Request received for authorization for Doxorubicin (J9000) total of 4 doses, Cyclophosphamide (J9070) total of 4 doses, Fosaprepitant (J1453), Palonosetron (J2469)- (review not required) and? Pegfilgrastim (J2506) total of 4 doses, Pembrolizumab (J9271) total of 4 doses(updated PA from 05/12/2023 to 08/04/2023)- (Authorized).? Prior authorization is approved from 05/12/2023 to 08/04/2023,?per [facility] on behalf of [employer], order ID/Ref#[id number].
[2023-04-28 09:20] VITALS: BP 101/65
[2023-04-28] MEDS: ONDANSETRON 2 MG/ML inj 8 MG IV (10:26)
[2023-04-28] MEDS: dexAMETHasone 20 MG in 0.9 % SODIUM CHLORIDE 100 ml 100 ML 408 MG IVPB (10:34)
[2023-04-28] MEDS: FAMOTIDINE 20 MG, diphenhydrAMINE 50 MG in 0.9 % SODIUM CHLORIDE 100 ml 100 ML 420 MG IVPB (10:50)
[2023-04-28] MEDS: CARBOplatin 180 MG, TUBING SECONDARY 1 EACH in 0.9 % SODIUM CHLORIDE 250 ml 250 ML 536 MG IVPB (12:37)
--- NOTE | 2023-05-02 14:37 | URNOTE ---
Per [facility] at [facility]. Paclitaxel (J9267) and Carboplatin (J9045) have been approved for one cycle. 05/05/2023-06/23/2023 Order ID [id number]
[2023-05-05 08:16] LABS: Basophils Absolute Auto 0.02 K/uL (0.00-0.30); Basophils Percent Auto 0.4 % (0.0-3.0); Eosinophils Absolute Auto 0.08 K/uL (0.00-0.50); Eosinophils Percent Auto 1.5 % (0.0-7.0); Hematocrit 33.4 % (33.0-51.0); Hemoglobin* 11.1 gm/dL (12.0-16.0); Immature Granulocytes Abs Auto 0.03 K/uL (0.00-0.30); Immature Granulocytes Pct Auto 0.5 %; Lymphocytes Percent Auto 50.5 % (20-44); Mean Corpuscular HGB Conc 33 gm/dL (32-36); Mean Corpuscular Hemoglobin 34 pg (26-34); Mean Corpuscular Volume 102 fL (80-100); Monocytes Percent Auto 5.6 % (0.0-11.0); Neutrophils Percent Auto 41.5 % (42.0-72.0); Platelet Count* 225 K/uL (140-440); RDW Coefficient of Variation % 20.1 % (11.5-15.5); Red Blood Count 3.27 m/uL (4.00-5.20)
[2023-05-05 08:21] LABS: Slide Review Reflex No
[2023-05-05 08:35] LABS: Chloride* 105 mmol/L (96-114)
[2023-05-05 08:36] LABS: Potassium* 3.6 mmol/L (3.6-5.1); Sodium* 137 mmol/L (135-149)
[2023-05-05 08:38] LABS: Aspartate Amino Transferase* 22 U/L (12-35); Bilirubin Total* 0.7 mg/dL (0.1-1.5); Carbon Dioxide* 24 mmol/L (20-32); Creatinine* 0.7 mg/dL (0.5-1.5); Estimated Glomerular Filt Rate 99 ml/min; Total Protein* 6.5 g/dL (6.0-8.3)
[2023-05-05 08:39] LABS: Alanine Aminotransferase* 27 U/L (4-35); Alkaline Phosphatase* 45 U/L (40-150); Blood Urea Nitrogen* 11 mg/dL (7-30); Glucose* 131 mg/dL (60-115)
[2023-05-05] MEDS: dexAMETHasone 20 MG in 0.9 % SODIUM CHLORIDE 100 ml 100 ML 420 MG IVPB (09:24)
[2023-05-05] MEDS: ONDANSETRON 2 MG/ML inj 8 MG IV (09:24)
[2023-05-05] MEDS: 0.9 % SODIUM CHLORIDE 250 ml IV (09:30)
[2023-05-05] MEDS: FAMOTIDINE 20 MG, diphenhydrAMINE 50 MG in 0.9 % SODIUM CHLORIDE 100 ml 100 ML 420 MG IVPB (09:45)
[2023-05-05] MEDS: CARBOplatin 180 MG, TUBING SECONDARY 1 EACH in 0.9 % SODIUM CHLORIDE 250 ml 250 ML 536 MG IVPB (11:12)
[2023-05-05] MEDS: SODIUM CHLORIDE 0.9 % (FLUSH) 10 ML SYRINGE IVF (11:56)
[2023-05-05] MEDS: HEPARIN 500 UNIT/5 ML SYRINGE IVF (11:56)
[2023-05-14 09:32] VITALS: BP 105/68; PULSE 81; RESP 16; TEMP 35.9; O2SAT 97
[2023-05-14 09:51] LABS: Basophils Percent Auto 0.4 % (0.0-3.0); Eosinophils Percent Auto 2.3 % (0.0-7.0); Hematocrit 31.6 % (33.0-51.0); Hemoglobin* 10.4 gm/dL (12.0-16.0); Lymphocytes Percent Auto 39.9 % (20-44); Mean Corpuscular HGB Conc 33 gm/dL (32-36); Mean Corpuscular Hemoglobin 34 pg (26-34); Mean Corpuscular Volume 105 fL (80-100); Neutrophils Percent Auto 41.4 % (42.0-72.0); Platelet Count* 194 K/uL (140-440); RDW Coefficient of Variation % 19.6 % (11.5-15.5); Red Blood Count 3.02 m/uL (4.00-5.20); White Blood Count* 2.63 K/uL (4.50-11.00)
[2023-05-14 09:55] LABS: Slide Review Reflex No
[2023-05-14 10:08] LABS: Albumin* 3.9 g/dL (3.3-5.0); Chloride* 106 mmol/L (96-114)
[2023-05-14 10:09] LABS: Potassium* 3.8 mmol/L (3.6-5.1); Sodium* 138 mmol/L (135-149)
[2023-05-14 10:11] LABS: Alkaline Phosphatase* 50 U/L (40-150); Aspartate Amino Transferase* 22 U/L (12-35); Bilirubin Total* 0.6 mg/dL (0.1-1.5); Blood Urea Nitrogen* 7 mg/dL (7-30); Carbon Dioxide* 25 mmol/L (20-32); Creatinine* 0.7 mg/dL (0.5-1.5); Estimated Glomerular Filt Rate 99 ml/min; Glucose* 113 mg/dL (60-115); Total Protein* 6.6 g/dL (6.0-8.3)
[2023-05-14 10:12] LABS: Alanine Aminotransferase* 24 U/L (4-35)
[2023-05-14] MEDS: PALONOSETRON 0.25 MG/5 ML inj IV (11:12)
[2023-05-14] MEDS: dexAMETHasone 10 MG in 0.9 % SODIUM CHLORIDE 100 ml 100 ML 404 MG IVPB (11:14)
[2023-05-14] MEDS: FOSAPREPITANT 150 MG inj 150 MG in 0.9 % SODIUM CHLORIDE 250 ml 250 ML 510 MG IVPB (11:34)
[2023-05-14] MEDS: cycloPHOSphamide 1,100 MG, TUBING SECONDARY 1 EACH in 0.9 % SODIUM CHLORIDE 250 ml 250 ML 511 MG IV (12:28)
[2023-05-14] MEDS: DOXOrubicin 2 MG/ML inj 110 MG IVP (12:28)
[2023-05-14] MEDS: HEPARIN 500 UNIT/5 ML SYRINGE IVF (13:24)
[2023-05-14] MEDS: SODIUM CHLORIDE 0.9 % (FLUSH) 10 ML SYRINGE IVF (13:24)
[2023-05-14] MEDS: 0.9 % SODIUM CHLORIDE 250 ml IV (13:29)
--- NOTE | 2023-05-14 13:56 | ONC.NURNOTE ---
Pt here for 1st AC. VSS. Epoxy Coatings Installer obtained consent and pt given written info on AC and neulasta. Pt verbalized understanding of chemo regimen, side effects, when to take antiemetics. Pt to return tomorrow for neulasta injection. Tolerated infusion well without difficulty.
[2023-05-15] MEDS: PEGFILGRASTIM 6 MG/0.6 ML SYRINGE SUBCUT (14:05)
--- NOTE | 2023-05-21 11:13 | ONC.NURNOTE ---
Pt called today reporting she left work yesterday around noon not feeling well and proceeded to sleep through the night to 9am this morning. She reports a fever of 101.5. She notes she had a sore throat upon waking and attributes it to feeling dry. She denies exposure to sick people and wears a mask at work. Extrusion Die Repair Manager called PCP to schedule same day appt; no available appointments until next week at [facility] Recommended pt proceed to [facility] ED; pt agreeable to this plan. Extrusion Die Repair Manager called report to ED dehydration unit operator Steph.
[2023-06-03 09:15] VITALS: BP 81/59; PULSE 88; RESP 18; TEMP 36.3; O2SAT 95
[2023-06-03 09:19] LABS: Basophils Absolute Auto 0.05 K/uL (0.00-0.30); Eosinophils Absolute Auto 0.01 K/uL (0.00-0.50); Eosinophils Percent Auto 0.2 % (0.0-7.0); Hematocrit 32.7 % (33.0-51.0); Hemoglobin* 10.5 gm/dL (12.0-16.0); Immature Granulocytes Abs Auto 0.05 K/uL (0.00-0.30); Lymphocytes Absolute Auto 1.03 K/uL (0.90-2.90); Lymphocytes Percent Auto 20.3 % (20-44); Mean Corpuscular HGB Conc 32 gm/dL (32-36); Mean Corpuscular Hemoglobin 34 pg (26-34); Mean Corpuscular Volume 106 fL (80-100); Monocytes Percent Auto 19.7 % (0.0-11.0); Neutrophils Absolute Auto 2.93 K/uL (1.7-7.0); Neutrophils Percent Auto 57.8 % (42.0-72.0); Platelet Count* 690 K/uL (140-440); RDW Coefficient of Variation % 19.2 % (11.5-15.5); Red Blood Count 3.08 m/uL (4.00-5.20); White Blood Count* 5.07 K/uL (4.50-11.00)
[2023-06-03 09:25] VITALS: BP 93/63
[2023-06-03 09:25] LABS: Slide Review Reflex No
[2023-06-03 09:28] VITALS: BP 77/52
[2023-06-03 09:33] LABS: Albumin* 4.1 g/dL (3.3-5.0); Chloride* 104 mmol/L (96-114); Potassium* 3.7 mmol/L (3.6-5.1); Sodium* 140 mmol/L (135-149)
[2023-06-03 09:35] LABS: Bilirubin Total* 0.3 mg/dL (0.1-1.5); Creatinine* 0.6 mg/dL (0.5-1.5); Estimated Glomerular Filt Rate 103 ml/min
[2023-06-03 09:36] LABS: Alanine Aminotransferase* 23 U/L (4-35); Alkaline Phosphatase* 60 U/L (40-150); Aspartate Amino Transferase* 26 U/L (12-35); Blood Urea Nitrogen* 10 mg/dL (7-30); Calcium* 9.1 mg/dL (8.4-10.6); Carbon Dioxide* 28 mmol/L (20-32); Glucose* 110 mg/dL (60-115); Total Protein* 6.8 g/dL (6.0-8.3)
[2023-06-03] MEDS: 0.9 % SODIUM CHLORIDE 1000 ml 1,000 ML IV (09:45)
--- NOTE | 2023-06-03 10:01 | PC.NURSE ---
Pt present today at [facility] for chemotherapy. VS done and pt hypotensive (see flowsheet for readings). Pt is afebrile and has been since leaving the hospital. RN noted a small reddened area near her port line in her neck, Yazmin states that she got a mosquito bite 1 week ago but it hasn't resolved. She shares that she got other bites that have resolved but this one hasn't. RN also noted some redness at the port incision. Yazmin otherwise feels well. She has been drinking fluids and eating small frequent meals. Diarrhea is minimal. Discussed case with . She ordered to HOLD chemo today. To give 1L NS today and again tomorrow. we will attempt to treat pt again if she feels well enough and VSS.
[2023-06-04 11:27] VITALS: BP 89/54; PULSE 89; RESP 16; TEMP 35.8; O2SAT 97
[2023-06-04] MEDS: 0.9 % SODIUM CHLORIDE 1000 ml 1,000 ML IV (11:30)
[2023-06-04] MEDS: HEPARIN 500 UNIT/5 ML SYRINGE IVF (11:48)
[2023-06-04] MEDS: SODIUM CHLORIDE 0.9 % (FLUSH) 10 ML SYRINGE IVF (11:48)
[2023-06-04 13:00] VITALS: BP 110/76; PULSE 88
[2023-06-05 11:11] VITALS: BP 83/59; PULSE 87; RESP 16; TEMP 36.2; O2SAT 98
[2023-06-05 11:35] VITALS: BP 113/74; PULSE 92
[2023-06-05 11:37] VITALS: BP 75/61; PULSE 102
[2023-06-05] MEDS: 0.9 % SODIUM CHLORIDE 1000 ml 1,000 ML IV (13:00)
[2023-06-05] MEDS: dexAMETHasone 10 MG in 0.9 % SODIUM CHLORIDE 100 ml 100 ML 404 MG IVPB (13:45)
[2023-06-05] MEDS: PALONOSETRON 0.25 MG/5 ML inj IV (13:45)
[2023-06-05] MEDS: FOSAPREPITANT 150 MG inj 150 MG in 0.9 % SODIUM CHLORIDE 250 ml 250 ML 800 MG IVPB (14:00)
[2023-06-05] MEDS: DOXOrubicin 2 MG/ML inj 95 MG IVP (14:37)
[2023-06-05] MEDS: SODIUM CHLORIDE 0.9 % (FLUSH) 10 ML SYRINGE IVF (15:32)
[2023-06-05] MEDS: HEPARIN 500 UNIT/5 ML SYRINGE IVF (15:32)
[2023-06-06 14:30] VITALS: BP 104/66; PULSE 68; RESP 16; TEMP 36.1; O2SAT 97
[2023-06-06] MEDS: 0.9 % SODIUM CHLORIDE 1000 ml 1,000 ML IV (14:32)
[2023-06-06] MEDS: SODIUM CHLORIDE 0.9 % (FLUSH) 10 ML SYRINGE IVF (14:32)
[2023-06-06] MEDS: PEGFILGRASTIM 6 MG/0.6 ML SYRINGE SUBCUT (15:29)
[2023-06-09 10:20] VITALS: BP 105/68; PULSE 104; RESP 16; TEMP 35.7; O2SAT 96
[2023-06-09 10:38] VITALS: BP 94/66; PULSE 103
[2023-06-09 10:42] VITALS: BP 71/50; PULSE 118
[2023-06-09] MEDS: 0.9 % SODIUM CHLORIDE 1000 ml 1,000 ML IV (10:52)
[2023-06-09] MEDS: HEPARIN 500 UNIT/5 ML SYRINGE IVF (11:55)
[2023-06-09] MEDS: SODIUM CHLORIDE 0.9 % (FLUSH) 10 ML SYRINGE IVF (11:55)
[2023-06-11 10:23] VITALS: BP 104/72; PULSE 107; RESP 16; TEMP 36.3; O2SAT 98
[2023-06-11] MEDS: 0.9 % SODIUM CHLORIDE 1000 ml 1,000 ML IV (10:30)
[2023-06-11] MEDS: HEPARIN 500 UNIT/5 ML SYRINGE IVF (10:49)
[2023-06-11] MEDS: SODIUM CHLORIDE 0.9 % (FLUSH) 10 ML SYRINGE IVF (10:50)
--- NOTE | 2023-06-11 10:50 | ONC.NURNOTE ---
Addendum entered by Sary Romero RN 06/11/23 16:20: orthostatics above obtained after 1L NS> Original Note: states things just dont taste good . states food is not appealing. some nausea. medication helps
--- NOTE | 2023-06-11 16:17 | ONC.NURNOTE ---
states no appetite. states med helping nausea. states voiding well light yellow urine. enc po intake as kimberli. orthostatics after 1LNS 110/75-82 sitting. 120/76-94 standing. denies dizziness, chestpain or rapid heart rate when standing. enc her to come in friday for fluids if at all thinks she may need some. declined to make an apt and stated will call fri am if need fluids.
[2023-06-25 09:23] VITALS: BP 96/64; PULSE 84; RESP 18; TEMP 36.4; O2SAT 96
[2023-06-25 10:01] LABS: Basophils Absolute Auto 0.06 K/uL (0.00-0.30); Basophils Percent Auto 1.2 % (0.0-3.0); Eosinophils Absolute Auto 0.08 K/uL (0.00-0.50); Eosinophils Percent Auto 1.6 % (0.0-7.0); Hematocrit 33.1 % (33.0-51.0); Hemoglobin* 10.7 gm/dL (12.0-16.0); Immature Granulocytes Abs Auto 0.03 K/uL (0.00-0.30); Immature Granulocytes Pct Auto 0.6 %; Lymphocytes Percent Auto 18.3 % (20-44); Mean Corpuscular HGB Conc 32 gm/dL (32-36); Mean Corpuscular Hemoglobin 35 pg (26-34); Mean Corpuscular Volume 107 fL (80-100); Neutrophils Absolute Auto 2.77 K/uL (1.7-7.0); Neutrophils Percent Auto 56.3 % (42.0-72.0); Platelet Count* 391 K/uL (140-440); RDW Coefficient of Variation % 17.2 % (11.5-15.5); Red Blood Count 3.09 m/uL (4.00-5.20); White Blood Count* 4.92 K/uL (4.50-11.00)
[2023-06-25 10:03] LABS: Slide Review Reflex No
[2023-06-25 10:19] LABS: Albumin* 4.2 g/dL (3.3-5.0)
[2023-06-25 10:20] LABS: Chloride* 104 mmol/L (96-114); Potassium* 3.9 mmol/L (3.6-5.1); Sodium* 137 mmol/L (135-149)
[2023-06-25 10:22] LABS: Bilirubin Total* 0.3 mg/dL (0.1-1.5); Creatinine* 0.6 mg/dL (0.5-1.5); Est. Creatinine Clearance* 82.48; Estimated Glomerular Filt Rate 103 ml/min
[2023-06-25 10:23] LABS: Alanine Aminotransferase* 27 U/L (4-35); Alkaline Phosphatase* 65 U/L (40-150); Aspartate Amino Transferase* 28 U/L (12-35); Blood Urea Nitrogen* 9 mg/dL (7-30); Calcium* 9.4 mg/dL (8.4-10.6); Carbon Dioxide* 24 mmol/L (20-32); Glucose* 103 mg/dL (60-115); Total Protein* 6.7 g/dL (6.0-8.3)
[2023-06-25 12:15] LABS: Thyroid Stimulating Hormone* 0.374 uIU/mL (0.270-4.20)
[2023-06-25] MEDS: PEMBROLIZUMAB 200 MG, TUBING PRIMARY 1 EACH, In-line 0.2 micron filter set 1 EACH in 0.... 216 MG IVPB (12:45)
[2023-06-25] MEDS: dexAMETHasone 10 MG in 0.9 % SODIUM CHLORIDE 100 ml 100 ML 420 MG IVPB (13:27)
[2023-06-25] MEDS: PALONOSETRON 0.25 MG/5 ML inj IV (13:27)
[2023-06-25] MEDS: FOSAPREPITANT 150 MG inj 150 MG in 0.9 % SODIUM CHLORIDE 250 ml 250 ML 510 MG IVPB (13:44)
[2023-06-25] MEDS: DOXOrubicin 2 MG/ML inj 95 MG IVP (14:17)
[2023-06-26 14:30] VITALS: BP 102/70; PULSE 75; RESP 16; TEMP 36.1; O2SAT 97
[2023-06-26] MEDS: PEGFILGRASTIM 6 MG/0.6 ML SYRINGE SUBCUT (14:53)
[2023-07-16 08:30] VITALS: BP 104/74; PULSE 82; RESP 14; TEMP 36.6; O2SAT 98
[2023-07-16] MEDS: SODIUM CHLORIDE 0.9 % (FLUSH) 10 ML SYRINGE IVF (09:21)
[2023-07-16 09:30] LABS: Basophils Percent Auto 1.4 % (0.0-3.0); Eosinophils Percent Auto 3.4 % (0.0-7.0); Hematocrit 35.2 % (33.0-51.0); Hemoglobin* 11.4 gm/dL (12.0-16.0); Immature Granulocytes Pct Auto 0.3 %; Lymphocytes Percent Auto 20.7 % (20-44); Mean Corpuscular HGB Conc 32 gm/dL (32-36); Mean Corpuscular Hemoglobin 35 pg (26-34); Mean Corpuscular Volume 108 fL (80-100); Monocytes Percent Auto 23.9 % (0.0-11.0); Neutrophils Percent Auto 50.3 % (42.0-72.0); Platelet Count* 303 K/uL (140-440); RDW Coefficient of Variation % 15.8 % (11.5-15.5); Red Blood Count 3.26 m/uL (4.00-5.20); White Blood Count* 3.48 K/uL (4.50-11.00)
[2023-07-16 09:34] LABS: Slide Review Reflex No
[2023-07-16 09:47] LABS: Albumin* 4.3 g/dL (3.3-5.0); Chloride* 106 mmol/L (96-114); Sodium* 139 mmol/L (135-149)
[2023-07-16 09:48] LABS: Potassium* 4.1 mmol/L (3.6-5.1)
[2023-07-16 09:50] LABS: Alanine Aminotransferase* 28 U/L (4-35); Alkaline Phosphatase* 61 U/L (40-150); Anion Gap 8 mEq/L (7-15); Aspartate Amino Transferase* 30 U/L (12-35); Bilirubin Total* 0.4 mg/dL (0.1-1.5); Blood Urea Nitrogen* 10 mg/dL (7-30); Calcium* 9.6 mg/dL (8.4-10.6); Carbon Dioxide* 25 mmol/L (20-32); Creatinine* 0.6 mg/dL (0.5-1.5); Est. Creatinine Clearance* 82.48; Estimated Glomerular Filt Rate 103 ml/min; Glucose* 89 mg/dL (60-115); Total Protein* 6.9 g/dL (6.0-8.3)
[2023-07-16 11:35] LABS: Thyroid Stimulating Hormone* 0.501 uIU/mL (0.270-4.20)
[2023-07-16] MEDS: PEMBROLIZUMAB 200 MG, TUBING PRIMARY 1 EACH, In-line 0.2 micron filter set 1 EACH in 0.... 216 MG IVPB (12:04)
[2023-07-16] MEDS: PALONOSETRON 0.25 MG/5 ML inj IV (12:31)
[2023-07-16] MEDS: dexAMETHasone 10 MG in 0.9 % SODIUM CHLORIDE 100 ml 100 ML 404 MG IVPB (12:32)
[2023-07-16] MEDS: FOSAPREPITANT 150 MG inj 150 MG in 0.9 % SODIUM CHLORIDE 250 ml 250 ML 510 MG IVPB (12:58)
[2023-07-16] MEDS: DOXOrubicin 2 MG/ML inj 95 MG IVP (13:34)
[2023-07-17 13:09] VITALS: BP 116/73; PULSE 56; RESP 16; TEMP 36.2
[2023-07-17] MEDS: PEGFILGRASTIM 6 MG/0.6 ML SYRINGE SUBCUT (13:15)
== END 2023-07-29 23:59 | disposition home or self-care (01) ==
LOC: CCIC 13:00
PROVIDERS: Clinical Nurse Specialist; Internal Medicine Hematology & Oncology; Physician Assistant; PCP Student in an Organized Health Care Education/Training Program; Referring Provider Student in an Organized Health Care Education/Training Program; Visit Provider Internal Medicine Hematology & Oncology
DX: C50.912 Malignant neoplasm of unspecified site of left female breast (principal); Z17.0 Estrogen receptor positive status [ER+]; D70.9 Neutropenia, unspecified; T45.1X5A Adverse effect of antineoplastic and immunosuppressive drugs, initial encounter
CPT/HCPCS: 36415; 36591; 80053; 82533; 83735; 84443; 85025; 87493; 96360; 96372; 96376; 96411; 96413; 96415; 96417; 99202; 99205; 99211; 99212; 99213; 99215; J2506; J9000; J9070; J1100; J1200; J1453; J1642; J2405; J2469; J7030; J7050; J9045; J9267; J9271; S0028

== ENCOUNTER 2023-08-19 06:38 | Day surgery (SDC) | payer BC, SELFPAY ==
--- NOTE | 2023-08-19 | CRLHL7_ITS ---
For Patients: As a result of the Century Cures Act, medical imaging exams and procedure reports are released immediately into your electronic medical record. You may view this report before your referring provider. If you have questions, please contact your health care provider. BREAST WIRE LOCALIZATION USING ULTRASOUND GUIDANCE regarding previously biopsy left axillary lymph node and biopsy-proven malignancy in the left breast CLINICAL HISTORY: Biopsy-proven malignancy left breast and previously biopsied left axillary lymph node, patient presents for lumpectomy LATERALITY: Left breast and left axilla LESION: Hypoechoic solid mass left breast 2 o`clock 11 cm from the nipple measuring 1.7 x 1.5 x 1.8 cm prior to adjuvant chemotherapy. Previously biopsied left axillary lymph node measuring 1.5 x 0.5 x 0.8 cm. LOCALIZATION WIRE: [place] hookwire for both lesions. TECHNIQUE: The localization wire was placed using real-time ultrasound guidance with image documentation. Cranial-caudal and medial-lateral digital mammograms were obtained after localization wire placement. CONSENT and TIME OUT: The procedure, risks, and alternatives were explained to the patient and a consent was signed. Liberal Protocol was followed including pre-procedure verification that relevant information/documentation was available, reviewed and properly matched to the patient; consent accurate and complete; and equipment and supplies available. Time Out was conducted just prior to starting procedure to verify the four required elements: patient identity, correct side/site marked (if applicable), procedure, relevant images/results properly labeled and displayed (if applicable). PROCEDURE: The skin was prepped with ChloraPrep and 6 cc of 1% lidocaine was injected for local anesthesia for each lesion. The localization wire was placed within or near the targeted breast lesion and the targeted left axillary lymph node lesion using ultrasound guidance. The patient tolerated the procedure well. PROXIMITY OF WIRE TO LESION: The wire is located immediately adjacent to the clip within the left breast at 2 o`clock 11 cm from the nipple. The mass has significantly decreased in size compared to the prior exam. The wire is located immediately adjacent to the clip associated with the previously biopsied left axillary lymph node. IMPRESSION: Successful breast wire localization and successful left axillary lymph node wire localization. ACR not applicable Dictated by Judd Sexton MD @ 08/19/2023 12:00:25 PM (Electronically Signed)
--- NOTE | 2023-08-19 | CRLHL7_ITS ---
For Patients: As a result of the Century Cures Act, medical imaging exams and procedure reports are released immediately into your electronic medical record. You may view this report before your referring provider. If you have questions, please contact your health care provider. PLEASE SEE ULTRASOUND-GUIDED LEFT BREAST WIRE LOCALIZATION PERFORMED SAME DAY CRL:barrington ferris/Dictated by: Judd Sexton MD @ 08/19/2023 10:04:00 AM (Electronically Signed)
[2023-08-19 07:04] VITALS: BMI 28.2
[2023-08-19 07:09] VITALS: BP 115/71; PULSE 63; RESP 20; TEMP 36.3; O2SAT 96
[2023-08-19] MEDS: LACTATED RINGERS 1000 ML 1,000 ML 100 ML IV (07:20)
[2023-08-19] MEDS: SODIUM CHLORIDE 0.9 % (FLUSH) 10 ML SYRINGE IVF (07:24)
--- NOTE | 2023-08-19 08:00 | CRLHL7_ITS ---
For Patients: As a result of the Century Cures Act, medical imaging exams and procedure reports are released immediately into your electronic medical record. You may view this report before your referring provider. If you have questions, please contact your health care provider. SENTINEL LYMPH NODE LOCALIZATION INJECTION CLINICAL HISTORY: Infiltrating ductal carcinoma, left breast LATERALITY: Left TECHNIQUE: With the patient supine, the periareolar left breast was cleansed with alcohol. 0.8mCi 99 [id number]-[id number] sulfur Colloid in a volume of 1 cc was injected intradermal in the upper outer periareolar breast with a 25-gauge needle. The patient tolerated the procedure well and there were no immediate complications. IMPRESSION: Injection for sentinel lymph node of the left breast. Dictated by Judd Sexton MD @ 08/19/2023 10:03:46 AM (Electronically Signed)
[2023-08-19] MEDS: CEFAZOLIN 2 GM INJ IVP (10:10)
[2023-08-19] MEDS: ISOSULFAN BLUE 5 ML VIAL INJECTION (10:10)
--- NOTE | 2023-08-19 11:10 | CRLHL7_ITS ---
For Patients: As a result of the Century Cures Act, medical imaging exams and procedure reports are released immediately into your electronic medical record. You may view this report before your referring provider. If you have questions, please contact your health care provider. CLINICAL HISTORY: Biopsy-proven malignancy left breast, patient presents for lumpectomy. COMPARISON: 01/13/2023 FINDINGS: Two views of the left breast specimen demonstrates the previously biopsied mass, biopsy clip and localization wire. IMPRESSION: Specimen contains the biopsied malignancy, biopsy clip and localization wire. Results were immediately communicated in person to Dr. Vaughan. ACR not applicable. Dictated by Judd Sexton MD @ 08/19/2023 11:57:26 AM (Electronically Signed)
--- NOTE | 2023-08-19 11:20 | CRLHL7_ITS ---
For Patients: As a result of the Cures Act, medical imaging exams and procedure reports are released immediately into your electronic medical record. You may view this report before your referring provider. If you have questions, please contact your health care provider. CLINICAL HISTORY: Left breast cancer, axillary lymph node dissection, previously biopsied left axillary lymph node with clip placement COMPARISON: 02/03/2023 FINDINGS: Two views of the left axillary lymph node specimen demonstrate the localization wire, the previously biopsied lymph node and the surgical clip. IMPRESSION: The specimen contains the lymph node, biopsy clip and localization wire. Results were immediately reported to Dr. Vaughan in person. ACR not applicable. Dictated by Judd Sexton MD @ 08/19/2023 11:55:58 AM (Electronically Signed)
[2023-08-19] MEDS: LIDOCAINE 1 % PF 30 ML INJECTION (11:30)
[2023-08-19] MEDS: BUPIVACAINE 0.25% 30 ML INJECTION (11:30)
--- NOTE | 2023-08-19 12:13 | W.ANESCHARGE ---
Anesthesia Charges Start Date/Time Anesthesia Start Date: 08/19/23 Anesthesia Start Time: 09:57 Stop Date/Time Anesthesia Stop Date: 08/19/23 Anesthesia Stop Time: 12:11
[2023-08-19 12:15] VITALS: BP 122/84; PULSE 72; RESP 16; TEMP 36.1; O2SAT 94
--- NOTE | 2023-08-19 12:16 | P.GSOP_ITS ---
Operative Note Pre-op diagnosis: Invasive ductal carcinoma, left breast Post-op diagnosis: Same Type of Procedure: 1. Injection of radionucleotide tracer 2. [place] lymph node biopsy 3. Left breast lumpectomy 4. Excision of wire localized sentinel node Indications: Patient is a 58-year-old female with diagnosis of invasive ductal carcinoma of the left breast. Tumor profile was triple negative, so patient did receive neoadjuvant treatment prior. After the completion of her treatment different surgical options were reviewed at length with the patient, please see consultation note for full discussion. Risks and benefits of operative intervention were discussed at length with the patient. Risks included but was not limited to: Bleeding, infection, risk of damage to surrounding structures, possible need for additional procedures and postoperative complications such as pneumonia, pulmonary emboli or IN. we also reviewed the risk of lymphedema with removal of any sentinel nodes, nerve injury or injury to surrounding axillary structures. All questions and concerns were addressed with the patient agreeing to proceed. Procedure Description: Prior to arrival in the operating room, the patient was taken to radiology where a wire was placed to localize the previously placed clip within the breast tissue, as well as the previously biopsied in clipped left axillary lymph node. In pre induction I injected a radiocolloid tracer around the left breast areola.. The patient was then brought to the operating room where anesthesia was induced. I injected 2 ml of lymphazurin blue and performed breast massage for a period of 5 minutes. The left breast and axilla were prepped and draped in the usual sterile fashion. Timeout was confirmed. Local anesthesia was infiltrated into a transverse lateral incision in the 2:00 o'clock position at the location of the tip of the wire. Using electrocautery, the segment of breast tissue containing the tip of the wire was excised. Through the same incision I was able to visualize the left axillary wire, leading to the previously biopsied lymph node. This was excised, with care to ligate the vascular pedicle. This node was radioactive and blue, consistent with a sentinel node. This was sent for evaluation. Radiology called back and confirmed that the clip, wire and mass were present within the breast lumpectomy and left axillary specimen. Pathology then called back and confirmed that the margins of the breast lumpectomy were appropriate. After removal of the wire localized sentinel node the Neoprobe was used to identify any additional nodes. Two additional nodes were resected in a similar fashion, taking care to clip the lymphatics. These were sent to pathology for permanent evaluation. The wounds were irrigated and all irrigant suctioned from the wound. Additional local anesthesia was infiltrated. Jazmyn was placed within the cavity. The lumpectomy cavity was marked with for clips, to help assist with radiation postoperatively. The wounds were then closed in layers using absorbable suture, and Dermbond was placed over the wounds. The patient was awakened without incident and taken to PACU in stable condition. Sponge, needle and instrument counts were correct x3 at the termination of the case. ? The patient tolerated the procedure well. Findings: 1. Wire localization left breast lumpectomy, margins negative 2. Wire localization left axillary sentinel node 3. 2 additional hot and blue nodes identified. Anesthesia: MAC and local Surgeon: Lisa Vaughan MD Estimated blood loss (mL): 30 Additional Specimen Information: 1. Left breast lumpectomy 2. Wire localized left axillary sentinel node 3. [place] lymph node 2 4. [place] lymph node 3 Condition: stable Disposition: same day Date of procedure: 08/19/23 [place] Node Biopsy for Breast Cancer Operation Performed with Curative Intent: Yes Tracers used to Identify sentinel nodes in the upfront surgery (non-neoadjuvant) setting: N/A Tracers used to identify sentinel nodes in the neoadjuvant setting: Dye and Radioactive Tracer All nodes (colored or non-colored) present at the end of a dye filled lymphatic channel were removed: Yes All significantly radioactive nodes were removed: Yes All palpably suspicious nodes were removed: Yes Biopsy proven positive nodes marked with clips prior to chemotherapy were identified and removed: Yes
[2023-08-19 12:30] VITALS: BP 138/88; PULSE 60; RESP 16; O2SAT 99
[2023-08-19 12:45] VITALS: BP 125/72; PULSE 65; RESP 16; TEMP 36.6; O2SAT 97
[2023-08-19 13:15] VITALS: BP 121/83; PULSE 60; RESP 16; TEMP 36.6; O2SAT 95
[2023-08-19 13:46] VITALS: BP 126/78; PULSE 64; RESP 16; O2SAT 97
--- NOTE | 2023-08-19 14:09 | W.ANESCHARGE ---
Anesthesia Charges Start Date/Time Anesthesia Start Date: 08/19/23 Anesthesia Start Time: 09:57 Stop Date/Time Anesthesia Stop Date: 08/19/23 Anesthesia Stop Time: 12:11
== END 2023-08-19 13:55 | disposition home or self-care (01) ==
LOC: OR 06:39 → MEDSURG 11:45
PROVIDERS: PCP Student in an Organized Health Care Education/Training Program; Visit Provider Surgery
PROC: (CPT 19125; principal; 2023-08-19 09:00)
PROC: (CPT 19125; 2023-08-19 09:00)
DX: C50.912 Malignant neoplasm of unspecified site of left female breast (principal)
CPT/HCPCS: 19125; 38500; 00400; 01610; 10035; 19285; 38792; 77065; 88305; 88307; 88342; A9541; C1769; J0665; J0690; J1885; J2001; J2250; J2405; J2704; J3010; J3490; J7120

== ENCOUNTER 2024-02-09 14:30 | Outpatient (RCR) | payer BC, SELFPAY ==
--- NOTE | 2023-08-28 15:19 | URNOTE ---
Per Alysia at [facility]. request was for Pembrolizumab (Keytruda) ([id number]), have been approved for nine total treatments from 09/01/23 to 03/08/24. Order ID [id number].
[2023-09-16 08:11] LABS: Basophils Absolute Auto 0.01 K/uL (0.00-0.30); Basophils Percent Auto 0.2 % (0.0-3.0); Eosinophils Absolute Auto 0.19 K/uL (0.00-0.50); Eosinophils Percent Auto 3.2 % (0.0-7.0); Hematocrit 37.1 % (33.0-51.0); Hemoglobin* 12.3 gm/dL (12.0-16.0); Mean Corpuscular HGB Conc 33 gm/dL (32-36); Mean Corpuscular Hemoglobin 34 pg (26-34); Mean Corpuscular Volume 102 fL (80-100); Monocytes Percent Auto 8.5 % (0.0-11.0); Neutrophils Percent Auto 74.1 % (42.0-72.0); Platelet Count* 248 K/uL (140-440); Red Blood Count 3.65 m/uL (4.00-5.20); Slide Review Reflex No; White Blood Count* 5.85 K/uL (4.50-11.00)
[2023-09-16 08:24] LABS: Albumin* 4.2 g/dL (3.3-5.0); Chloride* 106 mmol/L (96-114); Sodium* 136 mmol/L (135-149)
[2023-09-16 08:25] LABS: Potassium* 3.8 mmol/L (3.6-5.1)
[2023-09-16 08:27] LABS: Alanine Aminotransferase* 14 U/L (4-35); Alkaline Phosphatase* 90 U/L (40-150); Anion Gap 7 mEq/L (7-15); Aspartate Amino Transferase* 34 U/L (12-35); Bilirubin Total* 0.7 mg/dL (0.1-1.5); Blood Urea Nitrogen* 13 mg/dL (7-30); Carbon Dioxide* 23 mmol/L (20-32); Creatinine* 0.7 mg/dL (0.5-1.5); Estimated Glomerular Filt Rate 99 ml/min; Glucose* 133 mg/dL (60-115); Total Protein* 6.6 g/dL (6.0-8.3)
[2023-09-16 08:28] LABS: Calcium* 8.8 mg/dL (8.4-10.6)
[2023-09-16 09:13] LABS: Thyroid Stimulating Hormone* 0.815 uIU/mL (0.270-4.20)
[2023-09-16 09:52] VITALS: BP 121/82; PULSE 67; RESP 16; TEMP 36.7; O2SAT 97
[2023-09-16] MEDS: PEMBROLIZUMAB 200 MG, TUBING PRIMARY 1 EACH, In-line 0.2 micron filter set 1 EACH in 0.... 216 MG IVPB (10:16)
[2023-09-18 09:56] LABS: Cortisol, Serum 5.2 ug/dL
[2023-10-08] MEDS: HEPARIN 500 UNIT/5 ML SYRINGE IVF (13:15)
[2023-10-08] MEDS: SODIUM CHLORIDE 0.9 % (FLUSH) 10 ML SYRINGE IVF (13:15)
[2023-10-08 13:24] LABS: Basophils Percent Auto 0.5 % (0.0-3.0); Eosinophils Percent Auto 2.3 % (0.0-7.0); Hematocrit 36.6 % (33.0-51.0); Lymphocytes Percent Auto 18.3 % (20-44); Mean Corpuscular HGB Conc 33 gm/dL (32-36); Mean Corpuscular Hemoglobin 33 pg (26-34); Mean Corpuscular Volume 100 fL (80-100); Neutrophils Percent Auto 64.9 % (42.0-72.0); Platelet Count* 244 K/uL (140-440); RDW Coefficient of Variation % 12.8 % (11.5-15.5); Red Blood Count 3.68 m/uL (4.00-5.20); White Blood Count* 4.37 K/uL (4.50-11.00)
[2023-10-08 13:36] LABS: Albumin* 4.4 g/dL (3.3-5.0); Chloride* 104 mmol/L (96-114)
[2023-10-08 13:37] LABS: Potassium* 3.8 mmol/L (3.6-5.1); Sodium* 137 mmol/L (135-149)
[2023-10-08 13:39] LABS: Alanine Aminotransferase* 26 U/L (4-35); Alkaline Phosphatase* 100 U/L (40-150); Anion Gap 10 mEq/L (7-15); Aspartate Amino Transferase* 26 U/L (12-35); Bilirubin Total* 0.8 mg/dL (0.1-1.5); Blood Urea Nitrogen* 15 mg/dL (7-30); Carbon Dioxide* 23 mmol/L (20-32); Creatinine* 0.8 mg/dL (0.5-1.5); Estimated Glomerular Filt Rate 84 ml/min; Slide Review Reflex No; Total Protein* 7.1 g/dL (6.0-8.3)
[2023-10-08 13:40] LABS: Calcium* 9.1 mg/dL (8.4-10.6); Glucose* 109 mg/dL (60-115)
[2023-10-08 14:30] LABS: Thyroid Stimulating Hormone* 0.554 uIU/mL (0.270-4.20)
[2023-10-09] MEDS: PEMBROLIZUMAB 200 MG, TUBING PRIMARY 1 EACH, In-line 0.2 micron filter set 1 EACH in 0.... 216 MG IVPB (10:38)
[2023-10-09] MEDS: HEPARIN 500 UNIT/5 ML SYRINGE IVF (11:59)
[2023-10-09] MEDS: 0.9 % SODIUM CHLORIDE 250 ml IV (11:59)
[2023-10-09] MEDS: SODIUM CHLORIDE 0.9 % (FLUSH) 10 ML SYRINGE IVF (11:59)
[2023-10-30 16:01] LABS: Basophils Absolute Auto 0.02 K/uL (0.00-0.30); Basophils Percent Auto 0.4 % (0.0-3.0); Eosinophils Absolute Auto 0.11 K/uL (0.00-0.50); Eosinophils Percent Auto 2.2 % (0.0-7.0); Hematocrit 36.1 % (33.0-51.0); Hemoglobin* 11.9 gm/dL (12.0-16.0); Immature Granulocytes Abs Auto 0.01 K/uL (0.00-0.30); Immature Granulocytes Pct Auto 0.2 %; Lymphocytes Absolute Auto 1.22 K/uL (0.90-2.90); Lymphocytes Percent Auto 23.9 % (20-44); Mean Corpuscular HGB Conc 33 gm/dL (32-36); Mean Corpuscular Hemoglobin 32 pg (26-34); Mean Corpuscular Volume 97 fL (80-100); Monocytes Percent Auto 9.8 % (0.0-11.0); Neutrophils Absolute Auto 3.25 K/uL (1.7-7.0); Neutrophils Percent Auto 63.5 % (42.0-72.0); Platelet Count* 261 K/uL (140-440); Red Blood Count 3.73 m/uL (4.00-5.20); White Blood Count* 5.11 K/uL (4.50-11.00)
[2023-10-30 16:03] LABS: Slide Review Reflex No
[2023-10-30 16:04] LABS: Albumin* 4.3 g/dL (3.3-5.0); Chloride* 101 mmol/L (96-114); Potassium* 3.5 mmol/L (3.6-5.1); Sodium* 134 mmol/L (135-149)
[2023-10-30 16:07] LABS: Alanine Aminotransferase* 21 U/L (4-35); Alkaline Phosphatase* 86 U/L (40-150); Anion Gap 9 mEq/L (7-15); Aspartate Amino Transferase* 23 U/L (12-35); Bilirubin Total* 0.8 mg/dL (0.1-1.5); Blood Urea Nitrogen* 15 mg/dL (7-30); Calcium* 9.1 mg/dL (8.4-10.6); Carbon Dioxide* 24 mmol/L (20-32); Creatinine* 0.7 mg/dL (0.5-1.5); Estimated Glomerular Filt Rate 99 ml/min; Glucose* 92 mg/dL (60-115); Total Protein* 6.9 g/dL (6.0-8.3)
[2023-10-30 17:10] LABS: Thyroid Stimulating Hormone* 0.255 uIU/mL (0.270-4.20)
[2023-10-31 09:29] VITALS: BP 101/69; PULSE 86; RESP 16; TEMP 36.1; O2SAT 97
[2023-10-31] MEDS: 0.9 % SODIUM CHLORIDE 250 ml IV (10:19)
[2023-10-31] MEDS: SODIUM CHLORIDE 0.9 % (FLUSH) 10 ML SYRINGE IVF ×2 (10:19→11:32)
[2023-10-31] MEDS: PEMBROLIZUMAB 200 MG, TUBING PRIMARY 1 EACH, In-line 0.2 micron filter set 1 EACH in 0.... 216 MG IVPB (10:33)
--- NOTE | 2023-10-31 10:47 | ONC.NURNOTE ---
Patient here for pembrolizumab and it was noted that TSH was low, along with potassium and sodium. Given handout on high potassium foods, and what to watch for regarding TSH. Discussed with LEATHER TANNER, and T3/T4 was added. Patient instructed on what to watch for for worsening hyperthyroid. Patient aware to call with any changes. She has baseline anxiety, heart palpatations, and decreased apetite leading to weight loss.
[2023-10-31 10:54] LABS: Free T4 Free Thyroxine* 1.15 ng/dL (0.70-1.85)
[2023-10-31] MEDS: HEPARIN 500 UNIT/5 ML SYRINGE IVF (11:32)
[2023-11-01 16:58] LABS: Total T3 122 ng/dL (80-200)
[2023-11-01 18:55] LABS: Cortisol, Serum 2.7 ug/dL
[2023-11-24 08:54] LABS: Basophils Absolute Auto 0.01 K/uL (0.00-0.30); Basophils Percent Auto 0.2 % (0.0-3.0); Eosinophils Absolute Auto 0.14 K/uL (0.00-0.50); Eosinophils Percent Auto 2.8 % (0.0-7.0); Hematocrit 36.8 % (33.0-51.0); Hemoglobin* 12.2 gm/dL (12.0-16.0); Lymphocytes Percent Auto 10.1 % (20-44); Mean Corpuscular HGB Conc 33 gm/dL (32-36); Mean Corpuscular Hemoglobin 32 pg (26-34); Mean Corpuscular Volume 97 fL (80-100); Monocytes Percent Auto 11.3 % (0.0-11.0); Neutrophils Percent Auto 75.6 % (42.0-72.0); Platelet Count* 207 K/uL (140-440); RDW Coefficient of Variation % 14.8 % (11.5-15.5); Red Blood Count 3.81 m/uL (4.00-5.20); White Blood Count* 5.05 K/uL (4.50-11.00)
[2023-11-24 09:01] LABS: Slide Review Reflex No
[2023-11-24 11:42] LABS: Albumin* 4.1 g/dL (3.3-5.0); Chloride* 105 mmol/L (96-114); Potassium* 3.7 mmol/L (3.6-5.1); Sodium* 137 mmol/L (135-149)
[2023-11-24 11:44] LABS: Anion Gap 10 mEq/L (7-15); Bilirubin Total* 0.9 mg/dL (0.1-1.5); Carbon Dioxide* 22 mmol/L (20-32); Creatinine* 0.8 mg/dL (0.5-1.5); Estimated Glomerular Filt Rate 84 ml/min
[2023-11-24 11:45] LABS: Alanine Aminotransferase* 19 U/L (4-35); Alkaline Phosphatase* 95 U/L (40-150); Aspartate Amino Transferase* 22 U/L (12-35); Blood Urea Nitrogen* 11 mg/dL (7-30); Glucose* 115 mg/dL (60-115); Total Protein* 6.7 g/dL (6.0-8.3)
[2023-11-24 11:46] LABS: Calcium* 8.6 mg/dL (8.4-10.6)
[2023-11-24 12:45] LABS: Thyroid Stimulating Hormone* 0.777 uIU/mL (0.270-4.20)
[2023-11-24] MEDS: SODIUM CHLORIDE 0.9 % (FLUSH) 10 ML SYRINGE IVF ×2 (13:09→13:45)
[2023-11-24] MEDS: PEMBROLIZUMAB 200 MG, TUBING PRIMARY 1 EACH, In-line 0.2 micron filter set 1 EACH in 0.... 216 MG IVPB (13:09)
[2023-11-24] MEDS: HEPARIN 500 UNIT/5 ML SYRINGE IVF (13:45)
--- NOTE | 2023-12-05 15:35 | ONC.NURNOTE ---
Pt Lm noting her neuropathy is worse with this cycle of Capecitabine, especially at night. She finishes her 14 days on Sun 12/07. She reports she is doing skin care; her feet are red on the bottom but no blisters. LM for pt reinforcing skin care and to call if she wants to be seen by provider sooner than prior to next cycle of chemo. She returned message noting she can power through this weekend and will see provider as scheduled.
--- NOTE | 2023-12-12 11:31 | ONC.NURNOTE ---
Patient called to discuss her side effects from Capecitabine. She reports that starting about 4 days into her second cycle, she started to experience burning pain to her hands and feet. The skin became reddened but never blistered. Patient has been applying Aquaphor frequently. Now that she is nearing the end of her off week, she reports the redness is resolved and the pain is lessening. We discussed the use of Udder cream and voltaren gel with her next cycle. Patient reports that she can't do another cycle if it will be like this. She states the pain was so bad she could barely walk and her hands felt like they were coated with glue. I reassured patient that we will discuss this further at her appointment on Friday and make adjustments if needed.
[2023-12-15 08:29] LABS: Basophils Absolute Auto 0.02 K/uL (0.00-0.30); Basophils Percent Auto 0.4 % (0.0-3.0); Eosinophils Absolute Auto 0.21 K/uL (0.00-0.50); Eosinophils Percent Auto 3.9 % (0.0-7.0); Hematocrit 36.9 % (33.0-51.0); Hemoglobin* 12.3 gm/dL (12.0-16.0); Immature Granulocytes Abs Auto 0.01 K/uL (0.00-0.30); Immature Granulocytes Pct Auto 0.2 %; Lymphocytes Absolute Auto 1.07 K/uL (0.90-2.90); Mean Corpuscular HGB Conc 33 gm/dL (32-36); Mean Corpuscular Hemoglobin 32 pg (26-34); Mean Corpuscular Volume 96 fL (80-100); Monocytes Percent Auto 12.1 % (0.0-11.0); Neutrophils Percent Auto 63.4 % (42.0-72.0); Platelet Count* 205 K/uL (140-440); RDW Coefficient of Variation % 17.5 % (11.5-15.5); Red Blood Count 3.83 m/uL (4.00-5.20); White Blood Count* 5.36 K/uL (4.50-11.00)
[2023-12-15 08:35] LABS: Slide Review Reflex No
[2023-12-15 08:42] LABS: Albumin* 4.4 g/dL (3.3-5.0); Chloride* 104 mmol/L (96-114)
[2023-12-15 08:43] LABS: Potassium* 3.9 mmol/L (3.6-5.1); Sodium* 137 mmol/L (135-149)
[2023-12-15 08:45] LABS: Anion Gap 11 mEq/L (7-15); Aspartate Amino Transferase* 22 U/L (12-35); Bilirubin Total* 1.3 mg/dL (0.1-1.5); Carbon Dioxide* 22 mmol/L (20-32); Creatinine* 0.8 mg/dL (0.5-1.5); Estimated Glomerular Filt Rate 84 ml/min; Total Protein* 7.1 g/dL (6.0-8.3)
[2023-12-15 08:46] LABS: Alanine Aminotransferase* 19 U/L (4-35); Alkaline Phosphatase* 130 U/L (40-150); Blood Urea Nitrogen* 14 mg/dL (7-30); Glucose* 148 mg/dL (60-115)
[2023-12-15 14:37] VITALS: BP 117/66; PULSE 84; RESP 16; O2SAT 96
[2023-12-15] MEDS: PEMBROLIZUMAB 200 MG, TUBING PRIMARY 1 EACH, In-line 0.2 micron filter set 1 EACH in 0.... 216 MG IVPB (14:53)
[2023-12-15] MEDS: SODIUM CHLORIDE 0.9 % (FLUSH) 10 ML SYRINGE IVF (15:29)
[2023-12-15] MEDS: HEPARIN 500 UNIT/5 ML SYRINGE IVF (15:29)
[2024-01-05 09:08] LABS: Basophils Percent Auto 0.5 % (0.0-3.0); Hematocrit 37.3 % (33.0-51.0); Hemoglobin* 12.5 gm/dL (12.0-16.0); Immature Granulocytes Pct Auto 0.2 %; Lymphocytes Percent Auto 19.6 % (20-44); Mean Corpuscular HGB Conc 34 gm/dL (32-36); Mean Corpuscular Hemoglobin 34 pg (26-34); Mean Corpuscular Volume 101 fL (80-100); Monocytes Percent Auto 14.2 % (0.0-11.0); Neutrophils Percent Auto 61.5 % (42.0-72.0); Platelet Count* 209 K/uL (140-440); RDW Coefficient of Variation % 20.3 % (11.5-15.5); Red Blood Count 3.71 m/uL (4.00-5.20); White Blood Count* 4.29 K/uL (4.50-11.00)
[2024-01-05 09:09] LABS: Albumin* 4.3 g/dL (3.3-5.0); Chloride* 107 mmol/L (96-114); Sodium* 139 mmol/L (135-149)
[2024-01-05 09:10] LABS: Potassium* 3.6 mmol/L (3.6-5.1)
[2024-01-05 09:11] LABS: Slide Review Reflex No
[2024-01-05 09:12] LABS: Alkaline Phosphatase* 120 U/L (40-150); Anion Gap 10 mEq/L (7-15); Aspartate Amino Transferase* 22 U/L (12-35); Bilirubin Total* 1.4 mg/dL (0.1-1.5); Blood Urea Nitrogen* 13 mg/dL (7-30); Carbon Dioxide* 22 mmol/L (20-32); Creatinine* 0.7 mg/dL (0.5-1.5); Estimated Glomerular Filt Rate 99 ml/min
[2024-01-05 09:13] LABS: Alanine Aminotransferase* 19 U/L (4-35); Calcium* 9.2 mg/dL (8.4-10.6); Glucose* 115 mg/dL (60-115)
[2024-01-05 10:38] LABS: Thyroid Stimulating Hormone* 0.025 uIU/mL (0.270-4.20)
[2024-01-05] MEDS: HEPARIN 500 UNIT/5 ML SYRINGE IVF (11:14)
[2024-01-05] MEDS: SODIUM CHLORIDE 0.9 % (FLUSH) 10 ML SYRINGE IVF (11:14)
[2024-01-05 12:24] LABS: Free T4 Free Thyroxine* 1.37 ng/dL (0.70-1.85)
[2024-01-06 20:47] LABS: Total T3 162 ng/dL (80-200)
--- NOTE | 2024-01-08 14:31 | ONC.NURNOTE ---
T3 and T4 lab results reviewed with Dr. Miller. I left a message for patient requesting return call to discuss results and recommendation to resume Pembrolizumab at her earliest convenience. I tentatively have placed her on the schedule for 01/08 at 1300.
[2024-01-09 13:06] VITALS: BP 105/65; PULSE 76; RESP 16; TEMP 36.1; O2SAT 96
[2024-01-09] MEDS: PEMBROLIZUMAB 200 MG, TUBING PRIMARY 1 EACH, In-line 0.2 micron filter set 1 EACH in 0.... 216 MG IVPB (13:36)
[2024-01-09] MEDS: SODIUM CHLORIDE 0.9 % (FLUSH) 10 ML SYRINGE IVF (14:07)
[2024-01-09] MEDS: HEPARIN 500 UNIT/5 ML SYRINGE IVF (14:07)
[2024-02-02 08:17] LABS: Basophils Percent Auto 0.3 % (0.0-3.0); Eosinophils Percent Auto 4.6 % (0.0-7.0); Hematocrit 36.8 % (33.0-51.0); Hemoglobin* 12.4 gm/dL (12.0-16.0); Immature Granulocytes Pct Auto 0.3 %; Lymphocytes Percent Auto 21.5 % (20-44); Mean Corpuscular HGB Conc 34 gm/dL (32-36); Mean Corpuscular Hemoglobin 36 pg (26-34); Mean Corpuscular Volume 106 fL (80-100); Neutrophils Percent Auto 60.3 % (42.0-72.0); Platelet Count* 172 K/uL (140-440); RDW Coefficient of Variation % 19.2 % (11.5-15.5); Red Blood Count 3.48 m/uL (4.00-5.20); White Blood Count* 3.68 K/uL (4.50-11.00)
[2024-02-02 08:19] LABS: Slide Review Reflex Yes
[2024-02-02 08:29] LABS: Albumin* 4.1 g/dL (3.3-5.0); Chloride* 106 mmol/L (96-114)
[2024-02-02 08:30] LABS: Potassium* 3.6 mmol/L (3.6-5.1); Sodium* 138 mmol/L (135-149)
[2024-02-02 08:32] LABS: Anion Gap 8 mEq/L (7-15); Carbon Dioxide* 24 mmol/L (20-32); Creatinine* 0.8 mg/dL (0.5-1.5); Estimated Glomerular Filt Rate 84 ml/min; Slide Review Acceptable Review (Acceptable); Total Protein* 6.7 g/dL (6.0-8.3)
[2024-02-02 08:33] LABS: Alanine Aminotransferase* 24 U/L (4-35); Alkaline Phosphatase* 130 U/L (40-150); Aspartate Amino Transferase* 26 U/L (12-35); Blood Urea Nitrogen* 13 mg/dL (7-30); Calcium* 9.4 mg/dL (8.4-10.6); Glucose* 127 mg/dL (60-115)
[2024-02-02 10:37] LABS: Thyroid Stimulating Hormone* 0.938 uIU/mL (0.270-4.20)
[2024-02-09 14:03] VITALS: BP 115/77; PULSE 83; RESP 16; TEMP 36.1; O2SAT 99
[2024-02-09] MEDS: SODIUM CHLORIDE 0.9 % (FLUSH) 10 ML SYRINGE IVF ×2 (14:56→15:34)
[2024-02-09] MEDS: PEMBROLIZUMAB 200 MG, TUBING PRIMARY 1 EACH, In-line 0.2 micron filter set 1 EACH in 0.... 216 MG IVPB (14:56)
[2024-02-09] MEDS: 0.9 % SODIUM CHLORIDE 250 ml IV (14:56)
[2024-02-09] MEDS: HEPARIN 500 UNIT/5 ML SYRINGE IVF (15:34)
--- NOTE | 2024-02-12 15:19 | ONC.NURNOTE ---
When patient was in clinic on Friday, she reported the pain on her left side was getting worse. She reports the pain only when she pushes on it or pressure is applied to that area. The pain starts in her axilla and wraps around her ribs. She denies any pain with exertion or coughing. Concerns reviewed with MADISON Michael. Patient informed that we will continue to monitor it closely and will discuss at her follow up appointment on 03/01. If the pain worsens she is to call [facility] or seek medical care for further assessment. Patient states she saw PT today and they felt that it was fascia pain and they are going to see her for weekly PT.
== END 2024-02-28 23:59 | disposition home or self-care (01) ==
LOC: CCIC 14:30
PROVIDERS: Clinical Nurse Specialist; Internal Medicine Hematology & Oncology; PCP Student in an Organized Health Care Education/Training Program; Referring Provider Student in an Organized Health Care Education/Training Program; Visit Provider Physician Assistant
DX: C50.912 Malignant neoplasm of unspecified site of left female breast (principal); Z17.0 Estrogen receptor positive status [ER+]; Z51.12 Encounter for antineoplastic immunotherapy
CPT/HCPCS: 36415; 36591; 80053; 82533; 84439; 84443; 84480; 85025; 93005; 93010; 96413; 99212; 99215; G0463; J1642; J7050; J9271

== ENCOUNTER 2024-03-16 12:59 | Outpatient (CLI) | payer BC, SELFPAY ==
--- NOTE | 2024-03-16 13:00 | US_ITS ---
Patient: TAYLER FRASER Facility:?[facility] Patient ID:?[id number] Site Patient ID:?[id number]. Site :?[id number] Study:?US-Thyroid -03/16/2024 1:44:12 PM Ordering Physician:Lora Villagran Final Report: INDICATION: Superior left lobe thyroid nodule seen on CT TECHNIQUE: Conventional two-dimensional lewis-scale ultrasound of the thyroid gland. COMPARISON: None. FINDINGS: In the superior left thyroid lobe is a 1.9 x 1.6 x 0.9 cm partially cystic nodule with solid mildly hypoechoic component, TR4. No other nodule is evident. Thyroid otherwise heterogeneous in echogenicity. The right lobe measures 5.3 x 1.4 x 1.3 cm and the left lobe 5.4 x 1.3 x 2.0 cm. The isthmus measures 4 mm in thickness. IMPRESSION: Partially cystic 1.9 x 1.6 x 0.9 cm TR4 superior left thyroid lobe nodule. FNA recommended. ACR TI-RADS: TR1: Benign No FNA TR2: Not Suspicious No FNA TR3: Mildly Suspicious FNA if greater than or equal to 2.5 cm Follow if greater than or equal to 1.5 cm and less than 2.5 cm TR4: Moderately Suspicious FNA if greater than or equal to 1.5 cm Follow if greater than or equal to 1 cm and less than 1.5 cm TR5: Highly Suspicious FNA if greater than or equal to 1 cm Follow if greater than or equal to 0.5 cm and less than 1.0 cm Dictated by Cory Roberts MD @ 03/17/2024 9:50:33 AM Signed by:?Cory Roberts MD @03/17/2024 9:50:33 AM (Electronic Signature)
--- OUTSIDE RECORDS SUMMARY | 2024-03-16 13:02 | XMS_ITS | Clinical Summary ---
Author Name Unknown Organization [facility] Address [place], [place] [address] Care Team Providers Care Configurator Name Role Phone Fe Lang Primary Care Provider [phone] Allergies Active Allergy Reactions Criticality Noted Date Comments Fluoxetine Other - Describe In Comment Field Long QT. Medications Medication Sig Dispensed Refills Start Date End Date Status Eliquis 5 mg tablet Take 1 Tablet by mouth two times daily. 07/15/2023 Active nystatin (MYCOSTATIN) 100,000 unit/1mL susp 1 mL four times daily. Active Active Problems Problem Noted Date Diagnosed Date Pap smear for cervical cancer screening 08/01/20 Overview: 05/2022 NIL/HPV Negative Plan: Pap and HPV 05/2027 Elevated fasting glucose 05/27/2022 Overview: X3. Needs A1c next labs. Mild depression 09/08/2014 Anxiety disorder 09/08/2014 Resolved Problems Problem Noted Date Diagnosed Date Resolved Date Depression, major, recurrent 04/29/2013 03/30/2014 Plantar fasciitis 10/18/2008 09/08/2014 Immunizations Name Administration Dates Next Due Influenza, IIV4 07/21/2013 Tdap 03/18/2018,08/27/2007 Family History Medical History Relation Name Comments Other Brother 1 prediabetes Osteoarthritis Brother 2 hip dysplasia No Known Problems Brother 3 Heart Disease Father CHF Parkinsonism Father Parkinson's, CH F Other Mother dementia-? alzh eimers Heart Disease Paternal Grandmother cardio myopathy Heart Disease Sister 1 ? cardiomyopat hy Other Sister 1 prediabetes No Known Problems Sister 2 Cancer-breast No Family History Relation Name Status Comments Brother 1 Alive Brother 2 Alive Brother 3 Alive Father Maternal Grandfather Maternal Grandmother Mother Paternal Grandfather Paternal Grandmother Sister 1 Alive Sister 2 Alive Social History Tobacco Use Types Packs/Day Years Used Date Smoking Tobacco: Former Cigarettes 1 2 2 011 - 2012 Smokeless Tobacco: Former Quit: 11/13/2014 Tobacco Cessation:Counseling Given: Not Answered Alcohol Use Standard Drinks/Week Comments Not Currently 0 (1 standard drink = 0.6 oz pur e alcohol) occ. wine PHQ-2 Answer Date Recorded PHQ-2 TOTAL SCORE 0 04/01/2022 Social Connections Answer Date Recorded Frequency of Communication with Friends and Fami ly Not on file 04/01/2022 Sex and Gender Information Value Date Recorded Sex Assigned at Not on file Gender Identity Not on file Sexual Orientation Not on file Obstetrics History Para Term AB IAB SAB Ectopic Multiple Livin g Live Births 2 2 2 2 Date Outcome GA Total Labor Labor/2nd/3rd Weight Sex Delivery Anes PTL [place] A1 A5 Name Cl in Term Term Last Filed Vital Signs Vital Sign Reading Time Taken Comments Blood Pressure 122/72 09/10/2023 1:47 PM CDT Pulse 73 09/10/2023 1:47 PM CDT Temperature 36.7 ??C (98.1 ??F) 08/06/2023 12:43 PM C DT Respiratory Rate 16 08/06/2023 12:43 PM CDT Oxygen Saturation 99% 09/10/2023 1:47 PM CDT Inhaled Oxygen Concentration - - Weight 74.1 kg (163 lb 6.4 oz) 09/10/2023 1:47 P M CDT Height 161.6 cm (5' 3.62) 08/06/2023 12:43 PM C DT Body Mass Index 28.38 08/06/2023 12:43 PM CDT Plan of Treatment Health Maintenance Due Date Last Done Comments HIV for age 15-65 1978 Zoster (shingles) series for age 50+ (1 of 2) 2013 Depression screening for age 12+ 04/01/2023 04/01/2022, 07/21/2019, 03/18/2018, Additional history exists Fecal testing non-DNA (FIT,FOBT,iFOBT) for age 45-75 05/28/2023 05/28/2022, 07/28/2019, 03/23/2018, Additional history exists COVID-19 vaccine series ( season) 2023 Mammogram for age 45-75 01/06/2024 01/06/20 23, 12/24/2022, 07/28/2019, Additional history exists Influenza for age 50-64 07/11/2024 07/21/20 13, 07/13/2013 ([facility]) BMI (ht and wt on same day) for age 18+ 08/06/2024 08/06/2023, 05/27/2022, 07/21/2019, Additional history exists Lipids for age 45-75 05/27/2027 05/27/2022, 03/23/2018, 12/01/2012, Additional history exists Pap test for age 21-65 05/27/2027 , 05/27/2022, 03/18/2018, Additional history exists Tetanus booster 03/18/2028 03/18/2018, 08/27/2007 Tdap Completed 03/18/2018, 08/27/2007 Hepatitis C screening for age 18-79 Completed 03/23/2018 Pneumococcal series for age 6-64 Aged Out No longer eligible based on patient's age to complete this topic Procedures Procedure Name Priority Date/Time Associated Diagnosis Comments XR MAMMO RAVEN UNI ADDL VIEWS LEFT CHRIS 01/06/2023 3:02 PM PADDER Abnormal mammogram OCCULT BLOOD IFOBT STOOL Routine 05/28/2022 10:29 AM CDT Screening for colon cancer LIPID PANEL W REFLEX MEASURED LDL Routine 05/27/2022 9:50 AM CDT Screening cholesterol level HPV THIN PREP Routine 05/27/2022 9:32 AM CDT Encounter for Papanicolaou smear for cervical cancer screening ANTI HCV Routine 03/23/2018 8:37 AM CDT Encounter for hepatitis C screening test for low risk patient from Last 3 Months or Most Recently Relevant to Health Maintenance Results * XR MAMMO RAVEN UNI ADDL VIEWS LEFT (01/06/2023 3:02 PM PADDER) Anatomical Region Laterality Modality BREASTS, Breast Left Mammography Impressions 01/06/2023 9:50 PM PADDER ??Persistent nodule upper outer LEFT breast for which ultrasound is recommended. ?? Directed LEFT breast ultrasound with this radiologist present. ?? FINDINGS: ??At the 2 o'clock position LEFT breast 11 cm from the nipple, there is a 1.8 x 1.7 x 1.5 cm slightly lobulated hypoechoic solid nodule. ?? Ultrasound-guided biopsy is recommended. Brief evaluation of the LEFT axilla did not demonstrate any morphologically abnormal or enlarged lymph nodes. ?? These findings were discussed briefly with the patient. ?? IMPRESSION: ??Solid nodule upper outer LEFT breast measuring up to 1.8 cm for which an ultrasound-guided biopsy is recommended. BI-RADS Category 5: Highly Suggestive of Malignancy. Noman Torres M.D. Diagnostic/Nuclear Medicine Radiologist [email or web address] KRISTINE/barrington / PATIENTS: You will also receive a letter with your examination results in an easy to read format. ??If you have questions about your results, please contact your referring provider. Narrative 01/06/2023 9:50 PM PADDER As a result of the Century Cures Act, medical imaging exams and procedure reports are released immediately into your electronic medical record. ??You may view this report before your referring provider. ??If you have questions, please contact your health care provider. LEFT DIGITAL ADDITIONAL VIEWS MAMMOGRAM WITH TOMOSYNTHESIS, 01/06/2023 LEFT BREAST ULTRASOUND, 01/06/2023 CLINICAL HISTORY: ??57-year-old asymptomatic female. ??Nodule upper outer LEFT breast identified on a recent mammogram 12/24/2022. ??Follow-up. ?? TECHNIQUE: ??Spot compression view of the LEFT breast in the CC and MLO projection. ??Digital breast tomosynthesis was utilized. ??A unilateral LEFT breast ultrasound was also performed. ?? COMPARISON: ??12/24/2022. BREAST COMPOSITION: ??There are scattered areas of fibroglandular density FINDINGS: ??Persistent dense nodule upper outer LEFT breast 2 o'clock position 11 cm from the nipple. ??This measures between 1.6 and 1.8 cm. ?? Ultrasound is recommended and will be performed subsequently. Fe WALLACE MAMMO * OCCULT BLOOD IFOBT STOOL [[id number]] (05/28/2022 10:29 AM CDT) STOOL BLOOD ,IFOBT Negative Negative 05/31/2022 11:39 AM CDT [facility] Stool STOOL SPECIMEN / Unknown Non-Blood / Unknown 05/28/2022 10:29 AM CDT 05/31/2022 10:29 AM CDT [facility] Performing Organization Address City/State/[facility] Co de Phone Number [facility] [address] [place] [address], * LIPID PANEL W REFLEX MEASURED LDL (05/27/2022 9:50 AM CDT) CHOLESTEROL,TOTAL 165 100 - 199 mg/dL 05/27/2022 4:19 PM CDT [facility] TRIGLYCERIDES 137 <150 mg/dL 05/27/2022 4:19 PM CDT [facility] HDL CHOLESTEROL 46 >40 mg/dL 4:19 PM CDT [facility] NON-HDL CHOLESTEROL 119 <145 mg/dl 05/27/2022 4:19 PM CDT [facility] CHOL/HDL RATIO 3.59 <4.50 05/27/2022 4:19 PM CDT [facility] LDL CHOLESTEROL 92 <=130 mg/dL 05/27/2022 4:19 PM CDT [facility] VLDL CHOLESTEROL 27 <=30 mg/dL 05/27/2022 4:19 PM CDT [facility] PROVIDER ORDERED STATUS RANDOM 05/27/2022 4:19 PM CDT [facility] Blood BLOOD SPECIMEN / Unknown Venipuncture / Unknown 05/27/2022 9:50 AM CDT 05/27/2022 9:50 AM CDT [facility] [address] [place] [address], * HPV HIGH RISK (05/27/2022 9:32 AM CDT) TYPE 16 Negative Negative 05/29/2022 10:24 AM CDT [facility] TYPE 18 Negative Negative 05/29/2022 10:24 AM CDT [facility] OTHER HIGH RISK TYPES Negative Negative 05/29/2022 10:24 AM CDT [facility] Other (Cervical) Non-Blood / Unknown 05/27/2022 9:32 AM CDT 05/27/2022 4:54 PM CDT Narrative [facility] - 05/29/2022 10:24 AM CDT HPV types 16, 18, 31, 33, 35, 39, 45, 51, 52, 56, 58, 59, 66 and 68 DNA were undetectable or below the pre-set threshold. Methodology: Hannah Mike 4800 HPV Test [facility]ACE MICROBIOLOGY [facility] [address] [place] [address], [place] * ANTI HCV (03/23/2018 8:37 AM CDT) HEPATITIS C ANTIBODY Non-React stephanie Non-React stephanie 03/23/2018 1:39 PM CDT [facility] Comment:Antibodies to HCV no t detected; does not exclude the possibility of exposure to HCV. Blood BLOOD SPECIMEN / Unknown Venipuncture / Unknown 03/23/2018 8:37 AM CDT 03/23/2018 8:37 AM CDT Ruchi Brown UX SPECIALIST SEND OUTS [facility] [address] [place] [address], from Last 3 Months or Most Recently Relevant to Health Maintenance Care Teams Configurator Relationship Specialty Start Date End Date Fe Lang [place] [address] [place] [address] PCP - General Physician Fitness Club Manager 02/03/23
--- OUTSIDE RECORDS SUMMARY | 2024-03-16 13:02 | XMS_ITS ---
Author Name Unknown Organization [facility] Address [address] [place] [address] Care Team Providers Care Possum Trapper Name Role Phone Unavailable Primary Care Provider Unavailabl e Active Problems Problem Noted Date Diagnosed Date Malignant Neoplasm Of Breast Upper Outer Quadrant Female Left 01/30/2023 Cancer Staging:Clinical stage from 01/30/2023:Stage IIB(cT2, cN0, cM0, G2, ER-, [place]-, HER2-) - Signed by Rosanne Young M.D. on 01/30/2023 Pathologic stage from 08/19/2023:No Stage Recommended(ypT1a, pN0(sn), cM0, G2, ER-, [place]-, HER2-) - Unsigned Current Oncology Plans No current plan information found. Past Plans No past plan information found. Radiation Treatments * Plan Last Treated On Elapsed Days Fractions Treated Prescribed Fraction Dose Prescribed Total Dose [id number] 09/30/2023 12 4 of 4 250 cGy 1,000 cG y [id number] 09/24/2023 6 5 of 5 520 cGy 2,600 cGy Reference Point Last Treated On Elapsed Days Session Dose Total Dose [id number] 09/30/2023 12 250 cGy 3,600 cGy
--- OUTSIDE RECORDS SUMMARY | 2024-03-16 13:02 | XMS_ITS | Referral Summary ---
Author Name Unknown Organization [facility] Address [address] [place] [address] Care Team Providers Care Feed Elevator Worker Name Role Phone Unavailable Primary Care Provider Unavailabl e Source Comments Patient records contain information from all sites at [facility]. For routine questions regarding patient records, call [phone] during business hours, M-F 8:00 AM - 5:00 PM Central Time. Record requests for emergency care only can be directed to [phone] at any time.[facility] Allergies Active Allergy Reactions Criticality Noted Date Comments Fluoxetine Other (see comments) 09/01/2015 Long QT. Paroxetine Other (see comments) High 07/16/2023 Medications Medication Sig Dispensed Refills Start Date End Date Status Eliquis 5 mg tablet Take 1 tablet by mouth 2 (two) times a day. 07/15/2023 Active mometasone (ELOCON) 0.1 % cream Apply 1 Application topically 2 (two) times a day for 26 days. Apply to left breast. 45 g 09/18/2023 Active Active Problems Problem Noted Date Diagnosed Date Malignant Neoplasm Of Breast Upper Outer Quadrant Female Left 01/30/2023 Cancer Staging:Clinical stage from 01/30/2023:Stage IIB(cT2, cN0, cM0, G2, ER-, [place]-, HER2-) - Signed by Rosanne Young M.D. on 01/30/2023 Pathologic stage from 08/19/2023:No Stage Recommended(ypT1a, pN0(sn), cM0, G2, ER-, [place]-, HER2-) - Unsigned Social History Tobacco Use Types Packs/Day Years Used Date Smoking Tobacco: Former Cigarettes Q uit: 2012 Smokeless Tobacco: Former Quit: 2014 Alcohol Use Standard Drinks/Week Comments Yes 0 (1 standard drink = 0.6 oz pur e alcohol) Nutrition Answer Date Recorded Nutrition: EVOO Fat Source Unknown 07/24 Nutrition: Servings of Fruits/Vegetables per Day Not on file 07/24/2023 Dental Answer Date Recorded Dental: Regular Dentist Unknown 07/24/20 Sex and Gender Information Value Date Recorded Sex Assigned at Not on file Gender Identity Not on file Sexual Orientation Not on file Last Filed Vital Signs Vital Sign Reading Time Taken Comments Blood Pressure 118/67 09/12/2023 8:47 AM CDT Pulse 69 09/12/2023 8:47 AM CDT Temperature 36.8 ??C (98.3 ??F) 09/25/2023 3:12 PM CS T Respiratory Rate - - Oxygen Saturation - - Inhaled Oxygen Concentration - - Weight 73.5 kg (162 lb 0.6 oz) 09/25/2023 3:12 P M RADIOLOGY SUPERVISOR Height - - Body Mass Index - - Plan of Treatment Not on file Procedures Procedure Name Priority Date/Time Associated Diagnosis Comments OUTSIDE MG MAMMOGRAM Routine 01/13/2023 9:50 AM RADIOLOGY SUPERVISOR EXTI GLUCOSE, FASTING, S/P Routine 05/27/2022 9:50 AM CDT EXTI LIPID PANEL W REFLEX MEASURED LDL Routine 05/27/2022 9:50 AM CDT from Last 3 Months or Most Recently Relevant to Health Maintenance Results * MM clip placement LT-Outside Mammogram (01/13/2023 9:50 AM RADIOLOGY SUPERVISOR) Narrative [facility] - 07/28/2023 8:40 AM CDT This order has been created and auto-finalized to support the import of outside images. If available, original interpretation can be found on the Media Tab in Chart Review, in Document Viewer, or as an image in QREADS. If a re-interpretation or overread is required please follow defined workflow. ?? Provider Not In System IMG BI PROCEDURES [facility] NA from Last 3 Months or Most Recently Relevant to Health Maintenance
--- OUTSIDE RECORDS SUMMARY | 2024-03-16 13:02 | XMS_ITS | Clinical Summary ---
Author Name Unknown Organization [facility] Address [address] [place] [address] Care Team Providers Care Bundle Breaker Name Role Phone Unavailable Primary Care Provider Unavailabl e Source Comments Patient records contain information from all sites at [facility]. For routine questions regarding patient records, call [phone] during business hours, M-F 8:00 AM - 5:00 PM Central Time. Record requests for emergency care only can be directed to [phone] at any time.[facility] Allergies Active Allergy Reactions Criticality Noted Date [...] cM0, G2, ER-, [place]-, HER2-) - Unsigned Family History Medical History Relation Name Comments Heart failure Father Parkinsons disease Father Cardiomegaly Sister Cancer Neg Hx Relation Name Status Comments Father Sister Social History Tobacco Use Types Packs/Day Years [...] Date Recorded Dental: Regular Dentist Unknown 07/24/20 23 Sex and Gender Information Value Date Recorded [...] lb 0.6 oz) 09/25/2023 3:12 P M SCUDDING INSPECTOR Height - - Body Mass Index - - Plan of Treatment Health Maintenance Due Date Last Done Comments CT Colonography 1965 Cervical Cancer Screening 1965 Cologuard 1965 Colonoscopy 1965 Colorectal Cancer Screening 1965 FIT 1965 HIV Screening 1965 Hepatitis C Screening 1965 COVID-19 Vaccine (#1) 1968 Pneumococcal vaccine (0-64 years) (1 of 2 - PCV) 1969 Zoster Vaccines (1 of 2) 1982 Influenza Vaccine (#1) 2023 07/21/2013 Depression Screening (Annual PHQ-2) 11/10/2023 Mammogram 01/14/2024 01/13/2023, 12/12, 12/24/2022, Additional history exists Fasting Glucose for Diabetes Screening 05/27/2025 05/27/2022 Lipid (Cholesterol) Screening 05/27/2027 05/27/2022 DTaP,Tdap,and Td Vaccines (3 - Td or Tdap) 03/18/2028 03/18/2018, 08/27/2007 HPV Vaccines Aged Out No longer eligi ble based on patient's age to complete this topic Hepatitis B Vaccines Aged Out No long er eligible based on patient's age to complete this topic Procedures Procedure Name Priority Date/Time Associated Diagnosis Comments OUTSIDE MG MAMMOGRAM Routine 01/13/2023 9:50 AM SCUDDING INSPECTOR EXTI GLUCOSE, FASTING, S/P Routine 05/27/2022 9:50 AM CDT EXTI LIPID PANEL W REFLEX MEASURED LDL Routine 05/27/2022 9:50 AM CDT from Last 3 Months or Most Recently Relevant to Health Maintenance Results * MM clip placement LT-Outside Mammogram (01/13/2023 9:50 AM SCUDDING INSPECTOR) Narrative [facility] - 07/28/2023 8:40 AM CDT [...]
--- OUTSIDE RECORDS SUMMARY | 2024-03-16 13:02 | XMS_ITS ---
Author Name Unknown Organization [facility] Address [address] [place] [address] Care Team Providers Care Mechanical Assembly Name Role Phone Unavailable Unavailable Unavailable Surgery Details Not on file Complications Check Surgery Details section. Procedure Estimated Blood Loss Check Surgery Details section. Procedure Findings Check Surgery Details section. Procedure Specimens Taken Check Surgery Details section.
== END 2024-03-16 13:00 | disposition home or self-care (01) ==
LOC: US 12:59
PROVIDERS: PCP Student in an Organized Health Care Education/Training Program; Visit Provider Internal Medicine Hematology & Oncology
DX: E04.1 Nontoxic single thyroid nodule (principal)
CPT/HCPCS: 76536

== ENCOUNTER 2024-04-22 08:57 | Outpatient (CLI) | payer BC, SELFPAY ==
--- OUTSIDE RECORDS SUMMARY | 2024-04-22 08:59 | XMS_ITS | Referral Summary ---
Author Organization [facility] Address [address] [place] [address] Care Team Providers Care Administration Specialist Name Role Phone Unavailable Primary Care Provider Unavailabl e Source Comments Patient records contain information from all sites at [facility]. For routine questions regarding patient records, call [phone] during business hours, M-F 8:00 AM - 5:00 PM Central Time. Record requests for emergency care only can be directed to [phone] at any time.[facility] Allergies Active Allergy Reactions Criticality Noted [...] from 01/30/2023:Stage IIB(cT2, cN0, cM0, G2, ER-, [place]-, HER2-) - Signed by Rosanne Young M.D. on 01/30/2023 Pathologic stage from 08/19/2023:No Stage Recommended(ypT1a, pN0(sn), cM0, G2, ER-, [place]-, HER2-) - Unsigned Social History Tobacco Use [...] lb 0.6 oz) 09/25/2023 3:12 P M JEWEL WAXER Height - - Body Mass Index - - Plan of Treatment Not on file Procedures Procedure Name Priority Date/Time Associated Diagnosis Comments OUTSIDE MG MAMMOGRAM Routine 01/13/2023 9:50 AM JEWEL WAXER EXTI GLUCOSE, FASTING, S/P Routine 05/27/2022 9:50 AM CDT EXTI LIPID PANEL W REFLEX MEASURED LDL Routine 05/27/2022 9:50 AM CDT from Last 3 Months or Most Recently Relevant to Health Maintenance Results * MM clip placement LT-Outside Mammogram (01/13/2023 9:50 AM JEWEL WAXER) Narrative [facility] - 07/28/2023 8:40 AM CDT [...]
--- OUTSIDE RECORDS SUMMARY | 2024-04-22 08:59 | XMS_ITS ---
Author Organization [facility] Address [address] [place] [address] Care Team Providers Care Patient Financial Rep Name Role Phone Unavailable Primary Care Provider Unavailabl e Active Problems Problem Noted Date Diagnosed Date Malignant Neoplasm Of Breast Upper Outer Quadrant Female Left 01/30/2023 Cancer Staging:Clinical stage from 01/30/2023:Stage IIB(cT2, cN0, cM0, G2, ER-, [place]-, HER2-) - Signed by Rosanne Young M.D. on 01/30/2023 Pathologic stage from 08/19/2023:No Stage Recommended(ypT1a, pN0(sn), cM0, G2, ER-, [place]-, HER2-) - Unsigned Current Oncology Plans No current plan information found. Past Plans No past plan information found. Radiation Treatments * Plan Last Treated On Elapsed Days Fractions Treated Prescribed Fraction Dose Prescribed Total Dose [id number] 09/30/2023 12 4 of 4 250 cGy 1,000 cG y [id number] 09/24/2023 6 5 of 5 520 cGy 2,600 cGy Reference Point Last Treated On Elapsed Days Session Dose Total Dose [id number] 09/30/2023 12 250 cGy 3,600 cGy
--- OUTSIDE RECORDS SUMMARY | 2024-04-22 08:59 | XMS_ITS ---
Author Organization [facility] Address [address] [place] [address] Care Team Providers Care First Assistant Manager Name Role Phone Unavailable Unavailable Unavailable Surgery Details Not on file Complications Check Surgery Details section. Procedure Estimated Blood Loss Check Surgery Details section. Procedure Findings Check Surgery Details section. Procedure Specimens Taken Check Surgery Details section.
--- OUTSIDE RECORDS SUMMARY | 2024-04-22 08:59 | XMS_ITS | Clinical Summary ---
Author Organization [facility] Address [address] [place] [address] Care Team Providers Care Lunch Counter Manager Name Role Phone Unavailable Primary Care Provider Unavailabl e Source Comments Patient records contain information from all sites at [facility]. For routine questions regarding patient records, call [phone] during business hours, M-F 8:00 AM - 5:00 PM Central Time. Record requests for emergency care only can be directed to [phone] at any time.[facility] Allergies Active Allergy Reactions Criticality Noted Date [...] from 01/30/2023:Stage IIB(cT2, cN0, cM0, G2, ER-, FL-, HER2-) - Signed by Rosanne Young M.D. on 01/30/2023 Pathologic stage from 08/19/2023:No Stage Recommended(ypT1a, pN0(sn), cM0, G2, ER-, FL-, HER2-) - Unsigned Family History Medical History [...] lb 0.6 oz) 09/25/2023 3:12 P M BIODIESEL OPERATIONS MANAGER Height - - Body Mass Index - [...] Screening (Annual PHQ-2) 11/10/2023 Mammogram 01/14/2024 01/13/2023, 0205/2023, 12/24/2022, Additional history exists Fasting Glucose for [...] OUTSIDE MG MAMMOGRAM Routine 01/13/2023 9:50 AM BIODIESEL OPERATIONS MANAGER EXTI GLUCOSE, FASTING, S/P Routine 05/27/2022 9:50 AM CDT EXTI LIPID PANEL W REFLEX MEASURED LDL Routine 05/27/2022 9:50 AM CDT from Last 3 Months or Most Recently Relevant to Health Maintenance Results * MM clip placement LT-Outside Mammogram (01/13/2023 9:50 AM BIODIESEL OPERATIONS MANAGER) Narrative [facility]IM[facility] - 07/28/2023 8:40 AM CDT [...]
--- OUTSIDE RECORDS SUMMARY | 2024-04-22 08:59 | XMS_ITS | Clinical Summary ---
Author Organization [facility] [place], [place] [address] Care Team Providers Care Senior Adults Director Name Role Phone Fe Lang Primary Care Provider +1 [phone] Allergies Active Allergy Reactions Criticality Noted Date [...] recurrent 04/29/2013 03/30/2014 Plantar fasciitis 10/18/2008 09/08/2014 Encounters Date Type Department Care Team Description 03/16/2024 Orders Only [facility] Scanner 1 scan: (1-Ord) [facility], THYROID, 03/16/2024 from Last 3 Months Immunizations Name Administration Dates Next Due Influenza, [...] Outcome GA Total Labor Labor/2nd/3rd Weight Sex Type Anes PTL [place] A1 A5 Name Clin Term Term Last Filed Vital Signs Vital [...] 07/11/2024 07/21/20 13, 07/13/2013 [facility] BMI (ht and wt on same day) [...] Procedure Name Priority Date/Time Associated Diagnosis Comments SCAN-ULTRASOUND REPORT 03/16/2024 12:00 AM CDT XR MAMMO RAVEN UNI ADDL VIEWS LEFT CHRIS 01/06/2023 3:02 PM MASS SPECTROMETRY MANAGER Abnormal mammogram OCCULT BLOOD IFOBT STOOL Routine [...] Recently Relevant to Health Maintenance Results * SCAN-ULTRASOUND REPORT (03/16/2024 12:00 AM CDT) Anatomical Region Laterality Modality Other Scanner OTHER * XR MAMMO RAVEN UNI ADDL VIEWS LEFT (01/06/2023 3:02 PM MASS SPECTROMETRY MANAGER) Anatomical Region Laterality Modality BREASTS, Breast Left Mammography Impressions 01/06/2023 9:50 PM MASS SPECTROMETRY MANAGER ??Persistent nodule upper outer LEFT breast for [...] your referring provider. Narrative 01/06/2023 9:50 PM MASS SPECTROMETRY MANAGER As a result of the Century Cures [...] [facility] MAMMO * OCCULT BLOOD IFOBT STOOL [[id number]] (05/28/2022 10:29 AM CDT) STOOL BLOOD ,IFOBT Negative Negative 05/31/2022 11:39 AM CDT [facility] Stool STOOL SPECIMEN / Unknown Non-Blood / Unknown 05/28/2022 10:29 AM CDT 05/31/2022 10:29 AM CDT Karina W[facility]ACE [facility]ORAT[facility] [address] [place] [address], * LIPID PANEL W REFLEX MEASURED LDL (05/27/2022 9:50 AM CDT) CHOLESTEROL,TOTAL 165 100 - 199 mg/dL 05/27/2022 4:19 PM CDT [facility] TRAL LABORATORY TRIGLYCERIDES 137 <150 mg/dL 05/27/2022 4:19 PM CDT [facility] TRAL LABORATORY HDL CHOLESTEROL 46 >40 mg/dL 4:19 PM CDT [facility] TRAL LABORATORY NON-HDL CHOLESTEROL 119 <145 mg/dl 05/27/2022 4:19 PM CDT [facility] TRA LABORATORY CHOL/HDL RATIO 3.59 <4.50 05/27/2022 4:19 PM CDT [facility] LDL CHOLESTEROL 92 <=130 mg/dL 05/27/2022 4:19 PM CDT [facility] TRAL LABORATORY VLDL CHOLESTEROL 27 <=30 mg/dL 05/27/2022 4:19 PM CDT [facility] PROVIDER ORDERED STATUS RANDOM 05/27/2022 4:19 PM CDT [facility] Blood BLOOD SPECIMEN / Unknown Venipuncture / Unknown 05/27/2022 9:50 AM CDT 05/27/2022 9:50 AM CDT Karina WALLACE CHEMISTRY [facility] [address] * HPV HIGH RISK (05/27/2022 9:32 AM CDT) TYPE 16 Negative Negative 05/29/2022 10:24 AM CDT [facility] TYPE 18 Negative Negative 05/29/2022 10:24 AM CDT [facility] OTHER HIGH RISK TYPES Negative Negative 05/29/2022 10:24 AM CDT [facility] Other (Cervical) Non-Blood / Unknown 05/27/2022 9:32 AM CDT 05/27/2022 4:54 PM CDT Narrative [facility] - 05/29/2022 10:24 AM CDT HPV types 16, 18, 31, 33, 35, 39, 45, 51, 52, 56, 58, 59, 66 and 68 DNA were undetectable or below the pre-set threshold. Methodology: [employer] 4800 HPV Test Karina WALLACE MICROBIOLOGY [facility] [address] [place] [address], * ANTI HCV (03/23/2018 8:37 AM CDT) HEPATITIS C ANTIBODY Non-React stephanie Non-React stephanie 03/23/2018 1:39 PM CDT [facility] [employer] [facility] TRAL LABORATORY Comment:Antibodies to HCV no t detected; does not exclude the possibility of exposure to HCV. Blood BLOOD SPECIMEN / Unknown Venipuncture / Unknown 03/23/2018 8:37 AM CDT 03/23/2018 8:37 AM CDT Ruchi Brown SALES ENGINEER [employer] SEND OUTS [facility] Grid[employer]/20-CENTRAL LABORATORY [address] [place] [address], from Last 3 Months or Most Recently Relevant to Health Maintenance Care Teams Senior Adults Director Relationship Specialty Start Date End Date Fe Lang PA [address] [place] [address] PCP - General Physician Mixing Machine Operator 02/03/23
--- NOTE | 2024-04-22 09:15 | CRLHL7_ITS ---
For Patients: As a result of the Century Cures Act, medical imaging exams and procedure reports are released immediately into your electronic medical record. You may view this report before your referring provider. If you have questions, please contact your health care provider. ULTRASOUND-GUIDED THYROID FINE NEEDLE ASPIRATION/BIOPSY INDICATION Thyroid lobe nodule. Biopsy for diagnostic purposes. FINDINGS Informed consent was obtained. Benefits and risks were discussed. The patient agreed to proceed. [place] protocol was followed. TIME-OUT conducted just prior to starting procedure confirmed patient identity, site/side, procedure, patient position, and availability of correct equipment. Pause for cause was performed. Pre-biopsy images from 07/02/2023 were reviewed. There is a fairly well-circumscribed 1.5 x 0.5 x 1.2 cm cystic and solid nodule. This is the nodule to be biopsied. Utilizing sterile technique and 1 percent lidocaine for local anesthetic, a series of five 25-gauge needles were advanced into the medial left isthmic nodule. No immediate complications. No subsequent imaging. IMPRESSION Technically successful fine needle aspiration/biopsy of a 1.5 x 0.5 x 1.2 cm medial left isthmic nodule. Final pathology is pending. NOMAN SANTOYO M.D. Diagnostic/Nuclear Medicine Radiologist [email or web address] ZEINABN:barrington ferris/Dictated by: Noman Santoyo MD @ 04/22/2024 12:12:00 PM (Electronically Signed)
== END 2024-04-22 08:58 | disposition home or self-care (01) ==
LOC: US 08:57
PROVIDERS: PCP Student in an Organized Health Care Education/Training Program; Visit Provider Internal Medicine Hematology & Oncology
DX: E04.1 Nontoxic single thyroid nodule (principal)
CPT/HCPCS: 10005; 88173

== ENCOUNTER 2024-05-05 14:41 | Outpatient (CLI) | payer BC, SELFPAY ==
--- OUTSIDE RECORDS SUMMARY | 2024-05-05 14:43 | XMS_ITS ---
Author Organization [facility] Address [address] [place] [address] Care Team Providers Care Account Group Supervisor Name Role Phone Unavailable Primary Care Provider Unavailabl e Active Problems Problem Noted Date Diagnosed Date Malignant Neoplasm Of Breast Upper Outer Quadrant Female Left 01/30/2023 Cancer Staging:Clinical stage from 01/30/2023:Stage IIB(cT2, cN0, cM0, G2, ER-, MA-, HER2-) - Signed by Rosanne Young M.D. on 01/30/2023 Pathologic stage from 08/19/2023:No Stage Recommended(ypT1a, pN0(sn), cM0, G2, ER-, MA-, HER2-) - Unsigned Current Oncology Plans No current plan information found. Past Plans No past plan information found. Radiation Treatments * Plan Last Treated On Elapsed Days Fractions Treated Prescribed Fraction Dose Prescribed Total Dose [id number] 09/30/2023 12 4 of 4 250 cGy 1,000 cG y [id number] 09/24/2023 6 5 of 5 520 cGy 2,600 cGy Reference Point Last Treated On Elapsed Days Session Dose Total Dose [id number] 09/30/2023 12 250 cGy 3,600 cGy
--- OUTSIDE RECORDS SUMMARY | 2024-05-05 14:43 | XMS_ITS | Clinical Summary ---
Author Organization [facility] Address [place], [place] [address] Care Team Providers Care Administrative Sales Assistant Name Role Phone Fe Lang Primary Care Provider +1 [phone] Allergies Active Allergy Reactions Criticality Noted Date [...] Encounters Date Type Department Care Team Description 04/22/2024 Lab Requisition [facility] [phone] Lora Miller MD 04/22/2024 Orders Only [facility] Scanner 1 scan: (1-Ord) INCOMING RECORDS-, [facility], 04/22/2024 03/16/2024 Orders Only [facility] Scanner 1 scan: (1-Ord) [facility] THY[facility], 03/16/2024 from Last 3 Months Immunizations [...] Smoking Tobacco: Former Cigarettes 1 2 2 2012 Smokeless Tobacco: Former Quit: 11/13/2014 Tobacco [...] season) 2023 Mammogram for age 45-75 01/06/2024 01/06/20, 12/24/2022, 07/28/2019, Additional history exists Influenza for age 50-64 07/11/2024 07/21/20 13, 07/13/2013 [facility] BMI (ht and wt on same day) [...] Procedure Name Priority Date/Time Associated Diagnosis Comments LAB TRACKING EVENT Routine 04/22/2024 10 :15 AM CDT PATH FNA CYTOLOGY ASP CYTOLOGY Routine 04/22/2024 10:15 AM CDT SCAN CORRESP-IMAGING 04/22/2024 12:00 AM CDT SCAN-ULTRASOUND REPORT 03/16/2024 12:00 AM CDT XR MAMMO RAVEN UNI ADDL VIEWS LEFT CHRIS 01/06/2023 3:02 PM ASPHALT DAUBER Abnormal mammogram OCCULT BLOOD IFOBT STOOL Routine [...] Recently Relevant to Health Maintenance Results * LAB TRACKING EVENT (04/22/2024 10:15 AM CDT) Other (Other) Client Collect / Unknown 04/22/2024 10:15 AM CDT 04/22/2024 10:01 PM CDT Lora Miller MD LAB BILL ONLY [facility] [address] [place] [address], * PATH FNA CYTOLOGY ASP CYTOLOGY (04/22/2024 10:15 AM CDT) Case Report Medical Cytology Report ? Case: [id number] ? Authorizing Provider: ??Lora Miller MD ?Collected: ? 04/22/2024 1015 ? Ordering Location: ? [facility] ?Received: ?04/23/2024 1017 ? Pathologist: ? Melinda Serrato ? MD Vandana ? Specimen: ?Left Thyroid ? 04/23/2024 4:02 PM CDT e|tab[facility]C [facility] Final Diagnosis THYROID, LEFT, ULTRASOUND GUIDED FINE NEEDLE ASPIRATION: 1. Benign thyroid nodule with cystic degeneration 2. Negative for malignancy 3. See comment 04/23/2024 4:02 PM T e|tab-C [facility] LAB[facility]AT[facility] Comment The risk of malignancy in the follow-up of lesions with this cytologic appearance is low (0-3%). Clinical and radiologic correlation is advised, with repeat sampling recommended for any suspicious or enlarging lesion at this site. 04/23/2024 4:02 PM T e|tab-C [facility] LABOR[facility] Clinical Information Ms. Plasencia is a 58 y.o. with a 1.9 x 1.6 x 0.9 cm left thyroid nodule (TR4). 04/23/2024 4:02 PM CDT [facility] Gross Description A) Received identified as left thyroid is a fine needle aspirate specimen. The following were received: ? -6 Air dried slides ? -1 CytoLyt vial ? -1 FNA Protect vial The following were prepared from the specimen submitted: ? -6 Diff-Quik stained slides ? -1 Papanicolaou stained ThinPrep slide 04/23/2024 4:02 PM CDT [facility] EN[facility]ORATORY Adequacy Assessment 04/23/2024 4:02 PM CDT [facility] LAB[facility]ATORY Microscopic Description Specimen adequacy: Adequate for interpretation. All slides were reviewed. The microscopic appearance substantiates the diagnosis. 04/23/2024 4:02 PM CDT [facility] Additional Information Cytology is screened at [facility] - [address] [address] and [facility] - [address], [place] [address] and [facility] - [address] [place] [address] Interpreted at [facility] - [address], [place] [address] 04/23/2024 4:02 PM CDT [facility] Aspirate (Left Thyroid) 04/22/2024 10:15 AM CDT 04/23/2024 10:17 AM CDT Lora Miller MD PATHOLOGY/CYTOLOGY [facility] [address] [place] [address], [place] * SCAN CORRESP-IMAGING (04/22/2024 12:00 AM CDT) Anatomical Region Laterality Modality Other Scanner OTHER * SCAN-ULTRASOUND REPORT (03/16/2024 12:00 AM CDT) Anatomical Region Laterality Modality Other Scanner OTHER * XR MAMMO RAVEN UNI ADDL VIEWS LEFT (01/06/2023 3:02 PM ASPHALT DAUBER) Anatomical Region Laterality Modality BREASTS, Breast Left Mammography Impressions 01/06/2023 9:50 PM ASPHALT DAUBER ??Persistent nodule upper outer LEFT breast for [...] your referring provider. Narrative 01/06/2023 9:50 PM ASPHALT DAUBER As a result of the 21st Century Cures Act, medical imaging exams and [...] [facility] MAMMO * OCCULT BLOOD IFOBT STOOL [[id number]] (05/28/2022 10:29 AM CDT) STOOL BLOOD ,IFOBT Negative Negative 05/31/2022 11:39 AM CDT [facility] Stool STOOL SPECIMEN / Unknown Non-Blood / Unknown 05/28/2022 10:29 AM CDT 05/31/2022 10:29 AM CDT Karina WALLACE LAB[facility] [address] [place] [address], * LIPID PANEL W REFLEX MEASURED LDL (05/27/2022 9:50 AM CDT) CHOLESTEROL,TOTAL 165 100 - 199 mg/dL 05/27/2022 4:19 PM CDT [facility] TRAL LABORAT[facility] TRIGLYCERIDES 137 <150 mg/dL 05/27/2022 4:19 PM CDT [facility] HDL CHOLESTEROL 46 >40 mg/dL 4:19 PM CDT [facility] NON-HDL CHOLESTEROL 119 <145 mg/dl 05/27/2022 4:19 PM CDT [facility] CHOL/HDL RATIO 3.59 <4.50 05/27/2022 4:19 PM CDT [facility] TRAL LABORATORY LDL CHOLESTEROL 92 <=130 mg/dL 05/27/2022 4:19 PM CDT [facility] TRAL LABORATORY VLDL CHOLESTEROL 27 <=30 mg/dL 05/27/2022 4:19 PM CDT [facility] TRAL LABORATORY PROVIDER ORDERED STATUS RANDOM 05/27/2022 4:19 PM CDT [facility] TRAL LABORATORY Blood BLOOD SPECIMEN / Unknown Venipuncture / Unknown 05/27/2022 9:50 AM CDT 05/27/2022 9:50 AM CDT Karina WALLACE CHEMISTRY Performing Organization Address City/[facility] Co de Phone Number [facility] [address] [place] [address], * HPV HIGH RISK (05/27/2022 9:32 AM CDT) TYPE 16 Negative Negative 05/29/2022 10:24 AM CDT [facility] TRAL LABORATORY TYPE 18 Negative Negative 05/29/2022 10:24 AM CDT [facility] TRA LABORATORY OTHER HIGH RISK TYPES Negative Negative 05/29/2022 10:24 AM CDT [facility] Other (Cervical) Non-Blood / Unknown 05/27/2022 9:32 AM CDT 05/27/2022 4:54 PM CDT Narrative [facility] - 05/29/2022 10:24 AM CDT HPV types 16, 18, 31, 33, 35, 39, 45, 51, 52, 56, 58, 59, 66 and 68 DNA were undetectable or below the pre-set threshold. Methodology: [employer] 4800 HPV Test Karina WALLACE MICROBIOLOGY Performing Organization Address City/[facility]/ZIP Co de Phone Number [facility] [address] [place] [address], [place] * ANTI HCV (03/23/2018 8:37 AM CDT) HEPATITIS C ANTIBODY Non-React stephanie Non-React stephanie 03/23/2018 1:39 PM CDT [facility] Comment:Antibodies to HCV no t detected; does not exclude the possibility of exposure to HCV. Blood BLOOD SPECIMEN / Unknown Venipuncture / Unknown 03/23/2018 8:37 AM CDT 03/23/2018 8:37 AM CDT Ruchi Brown BASKET HAND BRAIDER SEND OUTS [facility]AL LABORATORY [address] [place] [address], from Last 3 Months or Most Recently Relevant to Health Maintenance Care Teams Administrative Sales Assistant Relationship Specialty Start Date End Date Fe Lang PA [address] [place] [address] PCP - General Physician Support Engineer 02/03/23"
--- OUTSIDE RECORDS SUMMARY | 2024-05-05 14:43 | XMS_ITS | Clinical Summary ---
Author Organization [facility] Address [address] [place] [address] Care Team Providers Care Nurses Superintendent Name Role Phone Unavailable Primary Care Provider Unavailabl e Source Comments Patient records contain information from all sites at [facility]. For routine questions regarding patient records, call [phone] during business hours, M-F 8:00 AM - 5:00 PM Central Time. Record requests for emergency care only can be directed to [phone] at any time.[facility] Allergies Active Allergy Reactions Criticality Noted Date [...] from 01/30/2023:Stage IIB(cT2, cN0, cM0, G2, ER-, RI-, HER2-) - Signed by Rosanne Young M.D. on 01/30/2023 Pathologic stage from 08/19/2023:No Stage Recommended(ypT1a, pN0(sn), cM0, G2, ER-, RI-, HER2-) - Unsigned Family History Medical History [...] lb 0.6 oz) 09/25/2023 3:12 P M GLASS ETCHER Height - - Body Mass Index - [...] OUTSIDE MG MAMMOGRAM Routine 01/13/2023 9:50 AM GLASS ETCHER EXTI GLUCOSE, FASTING, S/P Routine 05/27/2022 9:50 AM CDT EXTI LIPID PANEL W REFLEX MEASURED LDL Routine 05/27/2022 9:50 AM CDT from Last 3 Months or Most Recently Relevant to Health Maintenance Results * MM clip placement LT-Outside Mammogram (01/13/2023 9:50 AM GLASS ETCHER) Narrative [facility] - 07/28/2023 8:40 AM CDT [...]
--- OUTSIDE RECORDS SUMMARY | 2024-05-05 14:43 | XMS_ITS ---
Author Organization [facility] Address [address] [place] [address] Care Team Providers Care Spot Cleaner Name Role Phone Unavailable Unavailable Unavailable Surgery Details Not on file Complications Check Surgery Details section. Procedure Estimated Blood Loss Check Surgery Details section. Procedure Findings Check Surgery Details section. Procedure Specimens Taken Check Surgery Details section.
--- OUTSIDE RECORDS SUMMARY | 2024-05-05 14:43 | XMS_ITS | Referral Summary ---
Author Organization [facility] Address [address] [place] [address] Care Team Providers Care Robotic Weld Technician Name Role Phone Unavailable Primary Care Provider Unavailabl e Source Comments Patient records contain information from all sites at [facility]. For routine questions regarding patient records, call [phone] during business hours, M-F 8:00 AM - 5:00 PM Central Time. Record requests for emergency care only can be directed to [phone] at any time.[facility] Allergies Active Allergy Reactions Criticality Noted Date [...] from 01/30/2023:Stage IIB(cT2, cN0, cM0, G2, ER-, [place]-, HER2-) - Signed by Rosanne Young M.D. on 01/30/2023 Pathologic stage from 08/19/2023:No Stage Recommended(ypT1a, pN0(sn), cM0, G2, ER-, AL-, HER2-) - Unsigned Social History Tobacco Use [...] lb 0.6 oz) 09/25/2023 3:12 P M CHILI POWDER MIXER Height - - Body Mass Index - - Plan of Treatment Not on file Procedures Procedure Name Priority Date/Time Associated Diagnosis Comments OUTSIDE MG MAMMOGRAM Routine 01/13/2023 9:50 AM CHILI POWDER MIXER EXTI GLUCOSE, FASTING, S/P Routine 05/27/2022 9:50 AM CDT EXTI LIPID PANEL W REFLEX MEASURED LDL Routine 05/27/2022 9:50 AM CDT from Last 3 Months or Most Recently Relevant to Health Maintenance Results * MM clip placement LT-Outside Mammogram (01/13/2023 9:50 AM CHILI POWDER MIXER) Narrative [facility] - 07/28/2023 8:40 AM CDT [...]
--- NOTE | 2024-05-05 15:00 | CRLHL7_ITS ---
For Patients: As a result of the Century Cures Act, medical imaging exams and procedure reports are released immediately into your electronic medical record. You may view this report before your referring provider. If you have questions, please contact your health care provider. BILATERAL SCREENING MAMMOGRAM WITH COMPUTER-AIDED DETECTION AND TOMOSYNTHESIS TECHNIQUE: CC and MLO views were obtained. These mammographic images have been obtained using full-field digital technique. These mammographic images were interpreted with the benefit of computer-aided detection. Breast Tomosynthesis was used in this interpretation. COMPARISON FILM: 01/06/23, 12/24/22, 07/28/19. FINDINGS: There are scattered areas of fibroglandular density. IMPRESSION: There is no radiographic evidence for malignancy. ASSESSMENT: BI-RADS Category 2: Benign RECOMMENDATION: Routine screening mammogram in 1 year. A lay language report of this examination will be provided to the patient. Judd Sexton M.D. Diagnostic Radiologist [email or web address] SP/Dictated by: Judd Sexton MD @ 05/12/2024 9:50:00 AM (Electronically Signed)
--- NOTE | 2024-05-05 15:30 | CRLHL7_ITS ---
For Patients: As a result of the Century Cures Act, medical imaging exams and procedure reports are released immediately into your electronic medical record. You may view this report before your referring provider. If you have questions, please contact your health care provider. DXA BONE MINERAL DENSITY STUDY Reason for exam: Unspecified menopausal and perimenopausal disorder. Current height (in): 54. Weight (lb): 174. Menopause age: 48. Ethnicity: White. 1. Have you had a previous hip or vertebral fracture? No. 2. Have you had any fractures during your adult life which did not result from significant trauma (e.g., auto accident)? No. 3. Did either of your parents have a hip fracture? No. 4. Do you smoke? No. 5. Have you ever taken Glucocorticoids? No. 6. Do you have rheumatoid arthritis? No. 7. Do you have secondary osteoporosis? No. 8. Do you drink 3 or more alcoholic drinks per day? No. 9. Are you being treated for osteoporosis? No. 10. Have you ever taken any of the following medications: Actonel, Evista, Fosamax, Miacalcin, Reclast, Boniva, Forteo, HRT (i.e., estrogen/hormone therapy), Protelos, Prolia, Vitamin D, Calcium, other ??? please specify. ANSWER: Yes, vitamin D and calcium. 11. Do you have any of the following medical conditions: Anorexia or bulimia, asthma or emphysema, end stage renal disease, hyperparathyroidism, any seizure disorders, cancer, inflammatory bowel diseases, hysterectomy, other ??? please specify. ANSWER: Yes, cancer. 12. What was your maximum height (inches)? 64. 13. Do you perform weight bearing exercise regularly? No. 14. Do you regularly consume dairy products? No. 15. Do you drink caffeinated beverages? Yes. 16. At what age did your period start? 9. 17. Are you premenopausal? No. 18. How many full-term pregnancies have you had? 2. 19. Have you ever missed your period for more than 6 months in a row (not including or menopause)? No. TECHNIQUE: Bone mineral density study was performed using the [employer]. FINDINGS: The results of the study expressed as bone mineral density (BMD) are as follows: Lumbar spine L1 to L4: BMD: 0.676 g/cm2. T-score: -3.4. Z-score: -1.9 Neck Left: BMD: 0.540 g/cm2. T-score: -2.8. Z-score: -1.5 Right: BMD: 0.571 g/cm2. T-score: -2.5. Z-score: -1.2 Total Left: BMD: 0.691 g/cm2. T-score: -2.1. Z-score: -1.1 Right: BMD: 0.715 g/cm2. T-score: -1.9. Z-score: -0.9 IMPRESSION: Osteoporosis. DEVIN MENDES M.D. Transcribed: 2:19 p.m. [email or web address] jj/Dictated by: Devin Mendes MD @ 05/07/2024 12:27:00 PM (Electronically Signed)
== END 2024-05-05 14:42 | disposition home or self-care (01) ==
LOC: MAMMO 14:41
PROVIDERS: PCP Student in an Organized Health Care Education/Training Program; Visit Provider Internal Medicine Hematology & Oncology
DX: Z12.31 Encounter for screening mammogram for malignant neoplasm of breast (principal); N95.9 Unspecified menopausal and perimenopausal disorder; M81.0 Age-related osteoporosis without current pathological fracture
CPT/HCPCS: 77063; 77067; 77080

== ENCOUNTER 2024-08-24 11:30 | Outpatient (RCR) | payer BC, SELFPAY ==
[2024-03-01 08:52] LABS: Basophils Absolute Auto 0.01 K/uL (0.00-0.30); Basophils Percent Auto 0.2 % (0.0-3.0); Eosinophils Absolute Auto 0.15 K/uL (0.00-0.50); Eosinophils Percent Auto 3.2 % (0.0-7.0); Hematocrit 38.5 % (33.0-51.0); Hemoglobin* 12.9 gm/dL (12.0-16.0); Immature Granulocytes Abs Auto 0.01 K/uL (0.00-0.30); Immature Granulocytes Pct Auto 0.2 %; Lymphocytes Percent Auto 17.8 % (20-44); Mean Corpuscular HGB Conc 34 gm/dL (32-36); Mean Corpuscular Hemoglobin 36 pg (26-34); Mean Corpuscular Volume 108 fL (80-100); Monocytes Percent Auto 12.3 % (0.0-11.0); Neutrophils Absolute Auto 3.13 K/uL (1.7-7.0); Neutrophils Percent Auto 66.3 % (42.0-72.0); Platelet Count* 200 K/uL (140-440); RDW Coefficient of Variation % 15.7 % (11.5-15.5); Red Blood Count 3.58 m/uL (4.00-5.20); White Blood Count* 4.72 K/uL (4.50-11.00)
[2024-03-01 08:53] LABS: Slide Review Reflex No
[2024-03-01 09:10] LABS: Albumin* 4.4 g/dL (3.3-5.0); Chloride* 111 mmol/L (96-114); Potassium* 3.9 mmol/L (3.6-5.1); Sodium* 138 mmol/L (135-149)
[2024-03-01 09:12] LABS: Bilirubin Total* 1.2 mg/dL (0.1-1.5); Creatinine* 0.7 mg/dL (0.5-1.5); Estimated Glomerular Filt Rate 99 ml/min
[2024-03-01 09:13] LABS: Alanine Aminotransferase* 22 U/L (4-35); Alkaline Phosphatase* 118 U/L (40-150); Anion Gap 2 mEq/L (7-15); Aspartate Amino Transferase* 27 U/L (12-35); Blood Urea Nitrogen* 12 mg/dL (7-30); Calcium* 9.1 mg/dL (8.4-10.6); Carbon Dioxide* 25 mmol/L (20-32); Glucose* 110 mg/dL (60-115); Total Protein* 7.1 g/dL (6.0-8.3)
[2024-03-01] MEDS: 0.9 % SODIUM CHLORIDE 250 ml IV (11:03)
[2024-03-01] MEDS: SODIUM CHLORIDE 0.9 % (FLUSH) 10 ML SYRINGE IVF ×2 (11:04→11:53)
[2024-03-01 11:06] LABS: Thyroid Stimulating Hormone* 0.397 uIU/mL (0.270-4.20)
[2024-03-01] MEDS: PEMBROLIZUMAB 200 MG, TUBING PRIMARY 1 EACH, In-line 0.2 micron filter set 1 EACH in 0.... 216 MG IVPB (11:18)
[2024-03-01] MEDS: HEPARIN 500 UNIT/5 ML SYRINGE IVF (11:53)
--- NOTE | 2024-03-18 11:54 | URNOTE ---
Pembrolizumab ([id number]), 200 mg every 21 days for 17 total treatments, has been approved 03/22/2024-03/14/2025. Order ID [id number]
[2024-03-22] MEDS: SODIUM CHLORIDE 0.9 % (FLUSH) 10 ML SYRINGE IVF ×2 (08:24→11:11)
[2024-03-22 08:25] LABS: Basophils Absolute Auto 0.02 K/uL (0.00-0.30); Basophils Percent Auto 0.4 % (0.0-3.0); Eosinophils Absolute Auto 0.13 K/uL (0.00-0.50); Eosinophils Percent Auto 2.4 % (0.0-7.0); Hematocrit 36.1 % (33.0-51.0); Hemoglobin* 12.3 gm/dL (12.0-16.0); Immature Granulocytes Abs Auto 0.01 K/uL (0.00-0.30); Immature Granulocytes Pct Auto 0.2 %; Lymphocytes Percent Auto 19.2 % (20-44); Mean Corpuscular HGB Conc 34 gm/dL (32-36); Mean Corpuscular Hemoglobin 37 pg (26-34); Mean Corpuscular Volume 109 fL (80-100); Monocytes Percent Auto 12.2 % (0.0-11.0); Neutrophils Absolute Auto 3.62 K/uL (1.7-7.0); Neutrophils Percent Auto 65.6 % (42.0-72.0); Platelet Count* 215 K/uL (140-440); RDW Coefficient of Variation % 14.4 % (11.5-15.5); Red Blood Count 3.31 m/uL (4.00-5.20); White Blood Count* 5.51 K/uL (4.50-11.00)
[2024-03-22 08:26] LABS: Slide Review Reflex No
[2024-03-22 08:37] LABS: Albumin* 4.3 g/dL (3.3-5.0); Chloride* 108 mmol/L (96-114); Potassium* 3.8 mmol/L (3.6-5.1); Sodium* 138 mmol/L (135-149)
[2024-03-22 08:40] LABS: Alanine Aminotransferase* 19 U/L (4-35); Alkaline Phosphatase* 123 U/L (40-150); Anion Gap 5 mEq/L (7-15); Aspartate Amino Transferase* 20 U/L (12-35); Bilirubin Total* 0.8 mg/dL (0.1-1.5); Blood Urea Nitrogen* 11 mg/dL (7-30); Carbon Dioxide* 25 mmol/L (20-32); Creatinine* 0.7 mg/dL (0.5-1.5); Estimated Glomerular Filt Rate 99 ml/min; Glucose* 99 mg/dL (60-115); Total Protein* 6.8 g/dL (6.0-8.3)
[2024-03-22 08:41] LABS: Calcium* 8.9 mg/dL (8.4-10.6)
[2024-03-22 09:45] LABS: Thyroid Stimulating Hormone* 0.853 uIU/mL (0.270-4.20)
[2024-03-22] MEDS: 0.9 % SODIUM CHLORIDE 250 ml IV (10:39)
[2024-03-22] MEDS: PEMBROLIZUMAB 200 MG, TUBING PRIMARY 1 EACH, In-line 0.2 micron filter set 1 EACH in 0.... 216 MG IVPB (10:39)
[2024-03-22] MEDS: HEPARIN 500 UNIT/5 ML SYRINGE IVF (11:11)
[2024-04-12] MEDS: SODIUM CHLORIDE 0.9 % (FLUSH) 10 ML SYRINGE IVF ×2 (09:10→11:45)
[2024-04-12 09:21] LABS: Basophils Absolute Auto 0.02 K/uL (0.00-0.30); Basophils Percent Auto 0.4 % (0.0-3.0); Eosinophils Absolute Auto 0.16 K/uL (0.00-0.50); Eosinophils Percent Auto 3.3 % (0.0-7.0); Hemoglobin* 13.2 gm/dL (12.0-16.0); Immature Granulocytes Abs Auto 0.01 K/uL (0.00-0.30); Immature Granulocytes Pct Auto 0.2 %; Lymphocytes Absolute Auto 1.07 K/uL (0.90-2.90); Lymphocytes Percent Auto 21.7 % (20-44); Mean Corpuscular HGB Conc 34 gm/dL (32-36); Mean Corpuscular Hemoglobin 37 pg (26-34); Mean Corpuscular Volume 108 fL (80-100); Monocytes Percent Auto 11.4 % (0.0-11.0); Platelet Count* 213 K/uL (140-440); Red Blood Count 3.62 m/uL (4.00-5.20); White Blood Count* 4.92 K/uL (4.50-11.00)
[2024-04-12 09:25] LABS: Slide Review Reflex No
[2024-04-12 09:34] LABS: Albumin* 4.4 g/dL (3.3-5.0); Chloride* 108 mmol/L (96-114); Sodium* 140 mmol/L (135-149)
[2024-04-12 09:35] LABS: Potassium* 3.9 mmol/L (3.6-5.1)
[2024-04-12 09:37] LABS: Alkaline Phosphatase* 116 U/L (40-150); Anion Gap 6 mEq/L (7-15); Aspartate Amino Transferase* 25 U/L (12-35); Carbon Dioxide* 26 mmol/L (20-32); Creatinine* 0.7 mg/dL (0.5-1.5); Estimated Glomerular Filt Rate 99 ml/min; Total Protein* 7.4 g/dL (6.0-8.3)
[2024-04-12 09:38] LABS: Alanine Aminotransferase* 23 U/L (4-35); Blood Urea Nitrogen* 13 mg/dL (7-30); Calcium* 9.1 mg/dL (8.4-10.6); Glucose* 113 mg/dL (60-115)
[2024-04-12 10:34] LABS: Thyroid Stimulating Hormone* 0.753 uIU/mL (0.270-4.20)
[2024-04-12] MEDS: 0.9 % SODIUM CHLORIDE 250 ml IV (10:45)
[2024-04-12] MEDS: PEMBROLIZUMAB 200 MG, TUBING PRIMARY 1 EACH, In-line 0.2 micron filter set 1 EACH in 0.... 216 MG IVPB (11:17)
[2024-04-12] MEDS: HEPARIN 500 UNIT/5 ML SYRINGE IVF (11:45)
[2024-05-03 13:54] LABS: Basophils Absolute Auto 0.02 K/uL (0.00-0.30); Basophils Percent Auto 0.3 % (0.0-3.0); Eosinophils Absolute Auto 0.16 K/uL (0.00-0.50); Eosinophils Percent Auto 2.6 % (0.0-7.0); Hematocrit 37.1 % (33.0-51.0); Hemoglobin* 12.6 gm/dL (12.0-16.0); Immature Granulocytes Abs Auto 0.01 K/uL (0.00-0.30); Immature Granulocytes Pct Auto 0.2 %; Lymphocytes Absolute Auto 1.32 K/uL (0.90-2.90); Lymphocytes Percent Auto 21.8 % (20-44); Mean Corpuscular HGB Conc 34 gm/dL (32-36); Mean Corpuscular Hemoglobin 36 pg (26-34); Mean Corpuscular Volume 106 fL (80-100); Monocytes Percent Auto 10.9 % (0.0-11.0); Neutrophils Absolute Auto 3.89 K/uL (1.7-7.0); Neutrophils Percent Auto 64.2 % (42.0-72.0); Platelet Count* 212 K/uL (140-440); RDW Coefficient of Variation % 14.5 % (11.5-15.5); White Blood Count* 6.06 K/uL (4.50-11.00)
[2024-05-03 14:00] VITALS: BP 101/68; PULSE 82; RESP 16; TEMP 36.1; O2SAT 97
[2024-05-03 14:07] LABS: Slide Review Reflex No
[2024-05-03] MEDS: ALTEPLASE 2 MG INJ IVF (14:07)
[2024-05-03 14:19] LABS: Albumin* 4.3 g/dL (3.3-5.0); Chloride* 107 mmol/L (96-114); Potassium* 3.8 mmol/L (3.6-5.1); Sodium* 139 mmol/L (135-149)
[2024-05-03 14:21] LABS: Anion Gap 8 mEq/L (7-15); Bilirubin Total* 0.6 mg/dL (0.1-1.5); Carbon Dioxide* 24 mmol/L (20-32); Creatinine* 0.8 mg/dL (0.5-1.5); Estimated Glomerular Filt Rate 84 ml/min
[2024-05-03 14:22] LABS: Alanine Aminotransferase* 26 U/L (4-35); Alkaline Phosphatase* 109 U/L (40-150); Aspartate Amino Transferase* 29 U/L (12-35); Blood Urea Nitrogen* 16 mg/dL (7-30); Calcium* 9.2 mg/dL (8.4-10.6); Glucose* 118 mg/dL (60-115); Total Protein* 6.7 g/dL (6.0-8.3)
[2024-05-03] MEDS: 0.9 % SODIUM CHLORIDE 250 ml IV (15:25)
[2024-05-03] MEDS: HEPARIN 500 UNIT/5 ML SYRINGE IVF (15:25)
[2024-05-03] MEDS: SODIUM CHLORIDE 0.9 % (FLUSH) 10 ML SYRINGE IVF (15:25)
[2024-05-03] MEDS: PEMBROLIZUMAB 200 MG, TUBING PRIMARY 1 EACH, In-line 0.2 micron filter set 1 EACH in 0.... 216 MG IVPB (15:25)
--- NOTE | 2024-05-03 16:19 | ONC.NURNOTE ---
Yazmin states jose bottoms of both feet feel sore and puffy, exp at heals. feet warm and sl puffy. no reddness or open areas. heals sl dry. states hasnt been using lotion as sould. enc to use lotion and let us know if worsens.
[2024-05-25 15:40] LABS: Basophils Absolute Auto 0.02 K/uL (0.00-0.30); Basophils Percent Auto 0.3 % (0.0-3.0); Eosinophils Absolute Auto 0.15 K/uL (0.00-0.50); Eosinophils Percent Auto 2.6 % (0.0-7.0); Hematocrit 37.9 % (33.0-51.0); Hemoglobin* 12.3 gm/dL (12.0-16.0); Immature Granulocytes Abs Auto 0.04 K/uL (0.00-0.30); Immature Granulocytes Pct Auto 0.7 %; Lymphocytes Absolute Auto 1.43 K/uL (0.90-2.90); Mean Corpuscular HGB Conc 33 gm/dL (32-36); Mean Corpuscular Hemoglobin 35 pg (26-34); Mean Corpuscular Volume 106 fL (80-100); Monocytes Percent Auto 12.1 % (0.0-11.0); Neutrophils Absolute Auto 3.39 K/uL (1.7-7.0); Neutrophils Percent Auto 59.3 % (42.0-72.0); Platelet Count* 208 K/uL (140-440); RDW Coefficient of Variation % 14.5 % (11.5-15.5); Red Blood Count 3.57 m/uL (4.00-5.20); White Blood Count* 5.72 K/uL (4.50-11.00)
[2024-05-25 15:53] LABS: Albumin* 4.4 g/dL (3.3-5.0); Chloride* 108 mmol/L (96-114); Potassium* 3.6 mmol/L (3.6-5.1); Sodium* 139 mmol/L (135-149)
[2024-05-25 15:55] LABS: Anion Gap 10 mEq/L (7-15); Bilirubin Total* 0.7 mg/dL (0.1-1.5); Carbon Dioxide* 21 mmol/L (20-32); Creatinine* 0.8 mg/dL (0.5-1.5); Estimated Glomerular Filt Rate 84 ml/min
[2024-05-25 15:56] LABS: Alanine Aminotransferase* 21 U/L (4-35); Alkaline Phosphatase* 93 U/L (40-150); Aspartate Amino Transferase* 22 U/L (12-35); Blood Urea Nitrogen* 14 mg/dL (7-30); Calcium* 8.8 mg/dL (8.4-10.6); Glucose* 120 mg/dL (60-115); Total Protein* 6.3 g/dL (6.0-8.3)
[2024-05-25 16:12] LABS: Slide Review Reflex No
[2024-05-26] MEDS: 0.9 % SODIUM CHLORIDE 250 ml IV (09:03)
[2024-05-26] MEDS: SODIUM CHLORIDE 0.9 % (FLUSH) 10 ML SYRINGE IVF ×2 (09:03→09:55)
[2024-05-26] MEDS: PEMBROLIZUMAB 200 MG, TUBING PRIMARY 1 EACH, In-line 0.2 micron filter set 1 EACH in 0.... 216 MG IVPB (09:21)
[2024-05-26] MEDS: HEPARIN 500 UNIT/5 ML SYRINGE IVF (09:55)
--- NOTE | 2024-05-26 11:53 | ONC.NURNOTE ---
Patient is scheduled for port [facility] Dr[facility] Vaugh[facility] clearance form provided to patient.
--- NOTE | 2024-06-21 15:52 | ONC.NURNOTE ---
Patient instructed to hold Eliquis today, tomorrow and Friday morning. Patient to resume the evening after port removal. No need to hold Tamoxifen. Patient verbalizes understanding.
--- NOTE | 2024-08-06 10:40 | URNOTE ---
Request received for authorization for Zoledronic Acid (Zometa) ([id number]). Prior authorization is not required, Ref#[id number] per [facility] on behalf of [facility].
--- NOTE | 2024-08-06 15:45 | ONC.NURNOTE ---
Patient called to have us note in her chart that she will take her last Eliquis on 09/21.
--- NOTE | 2024-08-13 13:30 | ONC.NURNOTE ---
Pt called reporting she has a worsening toothache x 2 days and is scheduled for Zometa on Mon 08/16. Recommended pt be seen by Dentist to work-up tooth pain. She notes it is a baby tooth. Infusion cancelled; pt to call us with update after seeing Dentist.
[2024-08-24 12:01] LABS: Est. Creatinine Clearance* 51.02; Estimated Glomerular Filt Rate 64 ml/min
[2024-08-24 12:02] LABS: Calcium* 9.4 mg/dL (8.4-10.6)
[2024-08-24 12:30] VITALS: BP 112/75; PULSE 80; RESP 16; TEMP 35.6; O2SAT 99
[2024-08-24] MEDS: ZOLEDRONIC ACID 4 MG in 0.9 % SODIUM CHLORIDE 100 ml 100 ML 420 MG IVPB (12:43)
[2024-08-24] MEDS: SODIUM CHLORIDE 0.9 % (FLUSH) 10 ML SYRINGE IVF (13:20)
== END 2024-08-28 23:59 | disposition home or self-care (01) ==
LOC: CCIC 11:30
PROVIDERS: Clinical Nurse Specialist; Physician Assistant; PCP Student in an Organized Health Care Education/Training Program; Referring Provider Student in an Organized Health Care Education/Training Program; Visit Provider Internal Medicine Hematology & Oncology
DX: C50.912 Malignant neoplasm of unspecified site of left female breast (principal); Z17.1 Estrogen receptor negative status [ER-]; Z79.810 Long term (current) use of selective estrogen receptor modulators (SERMs)
CPT/HCPCS: 36415; 36591; 80053; 82310; 82565; 84443; 85025; 93005; 93010; 96374; 96376; 96413; 99215; G0463; J1642; J2997; J3489; J7050; J9271

== ENCOUNTER 2024-09-16 07:30 | Outpatient (RCR) | payer BC, SELFPAY ==
--- NOTE | 2024-03-09 08:51 | W.ED.EKGINT ---
EKG Interpretation EKG Data Attestation: I personally reviewed and interpreted this ECG as follows: Date of EKG Tracin03/01/24 EKG interpretation date: 03/09/24 Prior EKG tracings: available for review Interpretation: EKG is interpreted from above date, compared to EKG from 10/17/2023. Rhythm remains sinus, ventricular rate of 67, diffuse ST wave flattening is noted throughout the precordium, this is unchanged from previous EKG. QRS interval remained stable, MS interval remained stable. No voltage remained stable. Increase in the QT interval to 440, QTC baz. as remained stable. Assessment: EKG remains abnormal but stability is seen from previous EKG, QT intervals slightly longer, but likely due slowing of heart rate.
== END 2024-09-16 08:49 | disposition home or self-care (01) ==
PROVIDERS: PCP Student in an Organized Health Care Education/Training Program; Visit Provider Surgery
DX: I97.2 Postmastectomy lymphedema syndrome (principal); Z51.89 Encounter for other specified aftercare
CPT/HCPCS: 93010; 97110; 97140; 97161; 97164; 97165; 97530; 97535; X5282

== ENCOUNTER 2024-10-04 11:47 | Emergency (ER) | payer BC, SELFPAY ==
[2024-10-04 12:09] VITALS: BP 130/81; PULSE 81; RESP 16; TEMP 36.8; O2SAT 96; BMI 30.9
--- NOTE | 2024-10-04 12:23 | CRLHL7_ITS ---
For Patients: As a result of the Century Cures Act, medical imaging exams and procedure reports are released immediately into your electronic medical record. You may view this report before your referring provider. If you have questions, please contact your health care provider. INDICATION: Leg pain and swelling. TECHNIQUE: Ultrasound venous duplex lower left extremity. Compression venous exam was performed using lewis-scale, color Doppler, and spectral Doppler analysis. COMPARISON: None. FINDINGS: Deep veins: Sonographic imaging demonstrates the left common femoral, deep femoral, superficial femoral, popliteal, posterior tibial and the contralateral right common femoral veins to be fully compressible with normal color Doppler blood flow. Superficial veins: Greater saphenous vein is fully compressible. No popliteal cyst. IMPRESSION: Normal left lower extremity venous ultrasound, no sign of deep venous thrombosis. Dictated by Kwame Collazo MD @ 10/04/2024 1:03:54 PM (Electronically Signed)
--- NOTE | 2024-10-04 13:43 | ED.GENADULT ---
HPI - General Adult General Chief complaint: Extremity Pain/Injury, Lower Stated complaint: left leg pain Time Seen by Provider: 10/04/24 12:22 Source: patient Mode of arrival: ambulatory Limitations: no limitations History of Present Illness HPI narrative: 59-year-old female presenting today with left lower extremity pain that started 4 days ago. She states that it seems like it starts around her knee and then radiates up to her hip an also all the way down to her ankle sometimes. Usually only hurts when she is walking. Sometimes she feels an ache when she is sitting or lying. She denies any recent trauma. She does have a history of blood clots, recently stopped her Eliquis and patient would like to have a DVT ruled out. She denies swelling of the leg. She denies any back pain. She denies any loss of bowel or bladder function. She denies any saddle anesthesia. No fevers, chills or vomiting. Related Data Home Medications ?Medication ?Instructions ?Recorded ?Confirmed cholecalciferol (vitamin D3) 25 25 mcg PO DAILY 02/27/23 10/04/24 mcg (1,000 unit) capsule Al hyd-Mg tr-alg ac-sod bicarb 80 2 tab PO ACHS PRN heartburn 03/24/23 10/04/24 mg-14.2 mg chewable tablet (Gaviscon) loperamide 2 mg capsule (Imodium 2 mg PO Q6H PRN 04/14/23 10/04/24 A-D) magnesium 1 tab PO DAILY 08/24/24 10/04/24 Previous Rx's ?Medication ?Instructions ?Recorded calcium 600 mg (as 1 cap PO BIDWMEAL #240 caps 03/22/24 carbonate)-vitamin D3 10 mcg (400 unit) capsule tamoxifen 20 mg tablet 20 mg PO QDAY #90 tabs 05/26/24 Allergies Allergy/AdvReac Type Severity Reaction Status Date / Time paroxetine (From Paxil) Allergy Severe Verified 10/04/24 12:14 fluoxetine (From Prozac) Allergy long QT Verified 10/04/24 12:14 Review of Systems Status of ROS: Reports: 10 or more systems reviewed and unremarkable except as noted in History and below [facility] Medical History Thyroid nodule ?E04.1 - Nontoxic single thyroid nodule (ICD-10) Pancytopenia ?D61.818 - Other pancytopenia (ICD-10) Pulmonary emboli ?I26.99 - Other pulmonary embolism without acute cor pulmonale (ICD-10) Breast cancer ?C50.919 - Malignant neoplasm of unspecified site of unspecified female breast (ICD-10) Neutropenic fever ?D70.9 - Neutropenia, unspecified (ICD-10) ?R50.81 - Fever presenting with conditions classified elsewhere (ICD-10) 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 - Drug-induced polyneuropathy (ICD-10) ?T45.1X5A - Adverse effect of antineoplastic and immunosuppressive drugs, initial encounter (ICD-10) Hyperglycemia, unspecified ?R73.9 - Hyperglycemia, unspecified (ICD-10) Hypokalemia ?E87.6 - Hypokalemia (ICD-10) Anemia associated with chemotherapy ?D64.81 - Anemia due to antineoplastic chemotherapy (ICD-10) ?T45.1X5A - Adverse effect of antineoplastic and immunosuppressive drugs, initial encounter (ICD-10) Colitis ?K52.9 - Noninfective gastroenteritis and colitis, unspecified (ICD-10) Heartburn ?R12 - Heartburn (ICD-10) Diarrhea ?R19.7 - Diarrhea, unspecified (ICD-10) Weight loss, unintentional ?R63.4 - Abnormal weight loss (ICD-10) Encounter for care related to Port-a-Cath ?Z45.2 - Encounter for adjustment and management of vascular access device (ICD-10) Neutropenia ?D70.9 - Neutropenia, unspecified (ICD-10) Long QT interval syndrome ?I45.81 - Long QT syndrome (ICD-10) Surgical History Hx of tubal ligation ?Z98.51 - Tubal ligation status (ICD-10) Hx of tonsillectomy ?Z90.89 - Acquired absence of other organs (ICD-10) Family History Father CHF (congestive heart failure) Parkinsons disease Sister Cardiomegaly Social History Narrative: As of 01/30/2023, lives with her in their home. 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 She enjoys tending her chickens, traveling, sewing, her grandchildren. Code status is full. or her 2 children are healthcare power of mechanical engineering technologist. She is a former smoker. She rarely drinks alcohol. What is your current living situation?: I presently have a place to live Problems where you live: no known problems Problems where you live details: none In the past 12 months, utilities in danger of being shut off: no In the past 12 mos, have been you worried that your food would run out before you had money to buy more?: never true In the past 12 mos, the food you bought just didn't last and you didn't have money to buy more?: never true Highest level of school completed/degree received: some college, no degree Smoking Status: Former smoker Do you use any of these nicotine containing products: None Second hand tobacco smoke exposure: No How often do you have a drink containing alcohol: monthly or less How many standard drinks containing alcohol do you have on a typical day: 1 or 2 How often do you have six or more drinks on one occasion: Never AUDIT-C Alcohol total score: 1 Non-prescribed substance use: denies use Caffeine: Yes (jan) How often does anyone, including family, friends and others, physically hurt you: never How often does anyone, including family, friends and others, insult or talk down to you: never How often does anyone, including family, friends and others, threaten you with harm: never How often does anyone, including family, friends and others, scream or curse at you: never Are you using contraception or practicing any form of control: No service: No Exam Narrative: Exam Narrative: Well-nourished well-developed patient in no acute distress. Alert and oriented. Answers questions appropriately. Mood and affect are appropriate. Thoughts are goal oriented and rational. No tangential or magical thinking noted. Patient speaks in full sentences without needing to catch her breath. HEENT: Normocephalic atraumatic. Extraocular muscles are intact. Conjunctivae are moist without any icterus noted. Moist mucous membranes. Back: Normal appearance. No tenderness to palpation of the thoracic or lumbar spine. Extremities: Normal appearance. There is no swelling or erythema noted of the left lower extremity. She has no pain with range of motion of the hip, knee or ankle. She has a negative straight leg test. She has no joint line tenderness of the knee. No pain with compression of the patella. Const: Vital Signs, click to edit/add: Vital Signs - 24 hr 10/04/24 12:09 Temperature 98.3 F Pulse Rate [Pulse Oximeter] 81 Respiratory Rate 16 Blood Pressure [Ri ght Upper Arm] 130/81 Pulse Oximetry 96 Oxygen Delivery Me thod Room Air Course Course ED Course: Lower extremity ultrasound was unremarkable. Vital Signs Vital signs: Initial Vital Signs Temperature 98.3 F 10/04/24 12:09 Temperature Source Temporal Artery Scan 10/04/24 12:09 Pulse Rate 81 10/04/24 12:09 Respiratory Rate 16 10/04/24 12:09 Blood Pressure 130/81 10/04/24 12:09 Blood Pressure Mean 97 10/04/24 12:09 Blood Pressure Position Sitting 10/04/24 12:09 Pulse Oximetry 96 10/04/24 12:09 Oxygen Delivery Method Room Air 10/04/24 12:09 Vital Signs Temperature 98.3 F 10/04/24 12:09 Pulse Rate 81 10/04/24 12:09 Respiratory Rate 16 10/04/24 12:09 Blood Pressure 130/81 10/04/24 12:09 Pulse Oximetry 96 10/04/24 12:09 Oxygen Delivery Method Room Air 10/04/24 12:09 Temperature 98.3 F 10/04/24 12:09 Pulse Rate 81 10/04/24 12:09 Respiratory Rate 16 10/04/24 12:09 Blood Pressure 130/81 10/04/24 12:09 Pulse Oximetry 96 10/04/24 12:09 Oxygen Delivery Method Room Air 10/04/24 12:09 Medical Decision Making MDM Narrative Medical decision making narrative: 59-year-old female with left leg pain. We discussed the possibility of a pinched nerve in her lower back causing discomfort. We discussed the possibility of arthritis in her knee. At this point recommend gentle [id number] exercises, Tylenol and follow up with primary care as needed. Imaging Data Venous US: Attestation: I have reviewed the pertinent imaging results. Radiologist's impression: TECHNIQUE: Ultrasound venous duplex lower left extremity. Compression venous exam was performed using lewis-scale, color Doppler, and spectral Doppler analysis. COMPARISON: None. FINDINGS: Deep veins: Sonographic imaging demonstrates the left common femoral, deep femoral, superficial femoral, popliteal, posterior tibial and the contralateral right common femoral veins to be fully compressible with normal color Doppler blood flow. Superficial veins: Greater saphenous vein is fully compressible. No popliteal cyst. IMPRESSION: Normal left lower extremity venous ultrasound, no sign of deep venous thrombosis. Discharge Plan Discharge Clinical Impression: Acute leg pain Additional Instructions: Causes of leg pain include arthritis in any of the leg joins or a pinched nerve in the lower back. Recommend Tylenol as needed are. Follow-up with your primary care provider in the next week if this is not improving. Prescriptions: No Action loperamide [Imodium A-D] 2 mg capsule 2 mg PO Q6H PRN calcium carbonate-vitamin D3 600 mg-10 mcg (400 unit) capsule 1 cap PO BIDWMEAL Qty: 240 3RF cholecalciferol (vitamin D3) 25 mcg (1,000 unit) capsule 25 mcg PO DAILY tamoxifen 20 mg tablet 20 mg PO QDAY Qty: 90 1RF Gaviscon 80-14.2 mg tablet,chewable 2 tab PO ACHS PRN (Reason: heartburn) magnesium 1 tab PO DAILY Follow Up/Referrals: Fe Lang PA-C [Primary Care Provider] - Stand Alone Forms: MyHealth Info Instructions
[2024-10-04 13:56] VITALS: BP 103/71; PULSE 72; RESP 16; O2SAT 98
--- OUTSIDE RECORDS SUMMARY | 2024-10-04 14:07 | XMS_ITS | Clinical Summary ---
Author Organization [facility] Address [address] [place] [address] Care Team Providers Care Roll Slicing Machine Tender Name Role Phone Unavailable Primary Care Provider Unavailabl e Source Comments Patient records contain information from all sites at [facility]. For routine questions regarding patient records, call [phone] during business hours, M-F 8:00 AM - 5:00 PM Central Time. Record requests for emergency care only can be directed to [phone] at any time.[facility] Allergies Active Allergy Reactions Criticality Noted Date Comments Fluoxetine Other (see comments) 09/01/2015 Long QT. Paroxetine Other (see comments) High 07/16/2023 Medications Eliquis 5 mg tablet Take 1 tablet by mouth 2 (two) times a day. 3 Active mometasone (ELOCON) 0.1 % cream Apply 1 Application topically 2 (two) times a day for 26 days. Apply to left breast. 45 g 3 Active Active Problems Problem Noted Date Diagnosed Date Malignant Neoplasm Of Breast Upper Outer Quadrant Female Left 01/30/2023 Cancer Staging:Clinical stage from 01/30/2023:Stage IIB(cT2, cN0, cM0, G2, ER-, MD-, HER2-) - Signed by Rosanne Young M.D. on 01/30/2023 Pathologic stage from 08/19/2023:No Stage Recommended(ypT1a, pN0(sn), cM0, G2, ER-, MD-, HER2-) - Unsigned Encounters Date Type Department Care Team Description 07/11/2024 Refill Department of Radiation Oncology in [place], [place] [address] [place] [address] Tiffanie Asif M.D. Med Refill from Last 3 Months Family History Medical History Relation Name Comments [...] Recorded Dental: Regular Dentist Unknown 07/24/20 23 Comments Unknown Sex and Gender Information Value Date Recorded Sex Assigned at Not on file Legal Sex Female 7:36 AM ACADEMIC PHYSICIAN Gender Identity Not on file Sexual Orientation Not on file Last Filed Vital Signs Vital Sign Reading Time Taken Comments Blood Pressure 118/67 09/12/2023 8:47 AM CDT Pulse 69 09/12/2023 8:47 AM CDT Temperature 36.8 C (98.3 F) 09/25/2023 3:12 PM ACADEMIC PHYSICIAN Respiratory Rate - - Oxygen Saturation - - Inhaled Oxygen Concentration - - Weight 73.5 kg (162 lb 0.6 oz) 09/25/2023 3:12 P M ACADEMIC PHYSICIAN Height - - Body Mass Index - - Plan of Treatment Health Maintenance Due Date Last Done Comments CT Colonography 1963 Cervical/Vaginal Cancer Screening 1963 Cologuard 1963 Colonoscopy 1963 Colorectal Cancer Screening 1963 FIT 1963 HIV Screening 1963 Hepatitis C Screening 1963 COVID-19 Vaccine (#1) 1968 Pneumococcal vaccine (0-64 years) (1 of 2 - PCV) 1969 Zoster Vaccines (1 of 2) 1982 Depression Screening (Annual PHQ-2) 11/10/2023 Mammogram 01/14/2024 01/13/2023, 12/12, 12/24/2022, Additional history exists Influenza Vaccine (#1) 2024 07/21/2013 Fasting Glucose for Diabetes Screening 05/27/2025 05/27/2022 Lipid (Cholesterol) Screening 05/27/2027 05/27/2022 DTaP,Tdap,and Td Vaccines (3 - Td or Tdap) 03/18/2028 03/18/2018, 08/27/2007 HPV Vaccines Aged Out No longer eligi ble based on patient's age to complete this topic IPV Vaccines Aged Out No longer eligi ble based on patient's age to complete this topic Procedures Procedure Name Priority Date/Time Associated Diagnosis Comments OUTSIDE MG MAMMOGRAM Routine 01/13/2023 9:50 AM ACADEMIC PHYSICIAN from Last 3 Months or Most Recently Relevant to Health Maintenance Results * MM clip placement LT-Outside Mammogram (01/13/2023 9:50 AM ACADEMIC PHYSICIAN) Narrative [facility] - 07/28/2023 8:40 AM CDT This order has been created and auto-finalized to support the import of outside images. If available, original interpretation can be found on the Media Tab in Chart Review, in Document Viewer, or as an image in QREADS. If a re-interpretation or overread is required please follow defined workflow. us Provider Not In System IMG BI PROCEDURES Final R esult [facility] NA from Last 3 Months or Most Recently Relevant to Health Maintenance Insurance [facility]
--- OUTSIDE RECORDS SUMMARY | 2024-10-04 14:07 | XMS_ITS | Clinical Summary ---
Author Organization [facility] Address [place], [place] [address] Care Team Providers Care Remote Control Assembler Name Role Phone Fe Lang Primary Care Provider [phone] Allergies Active Allergy Reactions Criticality Noted Date Comments Fluoxetine Other - Describe In Comment Field Long QT. Medications Medication Sig Dispensed Refills Start Date End Date Status Eliquis 5 mg tablet Take 1 Tablet by mouth two times daily. 07/15/2023 Active nystatin (MYCOSTATIN) 100,000 unit/1mL susp 1 mL four times daily. Active tamoxifen (NOLVADEX) 20 mg tablet Take 20 mg by mouth once daily. 05/26/2024 Active Active Problems Problem Noted Date Diagnosed Date Pap smear for cervical cancer screening 08/01/20 Overview (08/01/2022): 05/2022 NIL/HPV Negative Plan: Pap and HPV 05/2027 Elevated fasting glucose 05/27/2022 Overview (05/27/2022): X3. Needs A1c next labs. Mild depression 09/08/2014 Anxiety disorder 09/08/2014 Resolved Problems Problem Noted Date Diagnosed Date Resolved Date Depression, major, recurrent 04/29/2013 03/30/2014 Plantar fasciitis 10/18/2008 09/08/2014 Encounters Date Type Department Care Team Description 10/04/2024 Nurse Triage [facility] [address] [place] [address] Fe Lang PA Leg Pain/problem from Last 3 Months Immunizations Name Administration [...] Sign Reading Time Taken Comments Blood Pressure 111/77 06/23/2024 1:02 PM CDT Pulse 75 06/23/2024 1:02 PM CDT Temperature 36.7 C (98.1 F) 08/06/2023 12:43 PM CDT Respiratory Rate 16 08/06/2023 12:43 PM CDT Oxygen Saturation 97% 06/23/2024 1:02 PM CDT Inhaled Oxygen Concentration - - Weight 81.2 kg (179 lb) 06/23/2024 1:02 PM CDT Height 161.6 cm (5' 3.62) 08/06/2023 12:43 PM C DT Body Mass Index 31.09 08/06/2023 12:43 PM CDT Plan of Treatment Health Maintenance Due Date Last Done Comments COVID-19 vaccine series (#1) 1968 HIV for age 15-65 1978 Zoster (shingles) series for age 50+ (1 of 2) 1982 Depression screening for age 12+ 04/01/2023 04/01/2022, 07/21/2019, 03/18/2018, Additional history exists Fecal testing non-DNA (FIT,FOBT,iFOBT) for age 45-75 05/28/2023 05/28/2022, 07/28/2019, 03/23/2018, Additional history exists Influenza for age 50-64 07/11/2024 07/21/20 13, 07/13/2013 (Completed outside of [facility]) BMI (ht and wt on same day) for age 18+ 08/06/2024 08/06/2023, 05/27/2022, 07/21/2019, Additional history exists Mammogram for age 45-75 05/05/2025 05/05/20 24, 01/06/2023, 12/24/2022, Additional history exists Lipids for age 45-75 [...] Procedure Name Priority Date/Time Associated Diagnosis Comments SCAN-MAMMOGRAPHY REPORT 05/05/2024 12:00 AM CDT OCCULT BLOOD IFOBT STOOL Routine 05/28/2022 10:29 AM CDT Screening for colon cancer LIPID PANEL W REFLEX MEASURED LDL Routine 05/27/2022 9:50 AM CDT Screening cholesterol level HPV HIGH RISK Routine 05/27/2022 9:32 AM CDT Encounter for Papanicolaou smear for cervical cancer screening ANTI HCV Routine 03/23/2018 8:37 AM CDT Encounter for hepatitis C screening test for low risk patient from Last 3 Months or Most Recently Relevant to Health Maintenance Results * SCAN-MAMMOGRAPHY REPORT (05/05/2024 12:00 AM CDT) Anatomical Region Laterality Modality Other Scanner OTHER * OCCULT BLOOD IFOBT STOOL [[id number]] (05/28/2022 10:29 AM CDT) STOOL BLOOD ,IFOBT Negative Negative 05/31/2022 11:39 AM CDT [facility] [place]ool STOOL SPECIMEN / Unknown Non-Blood / Unknown 05/28/2022 10:29 AM CDT 05/31/2022 10:29 AM CDT [facility] [address] [place] [address], * LIPID PANEL W REFLEX MEASURED LDL (05/27/2022 9:50 AM CDT) CHOLESTEROL,TOTAL 165 100 - 199 mg/dL 05/27/2022 4:19 PM CDT [facility] TRIGLYCERIDES 137 <150 mg/dL 05/27/2022 4:19 PM CDT [facility] HDL CHOLESTEROL 46 >40 mg/dL 4:19 PM CDT [facility] NON-HDL CHOLESTEROL 119 <145 mg/dl 05/27/2022 4:19 PM CDT [facility] CHOL/HDL RATIO 3.59 <4.50 05/27/2022 4:19 PM CDT [facility] LDL CHOLESTEROL 92 <=130 mg/dL 05/27/2022 4:19 PM CDT [facility] VLDL CHOLESTEROL 27 <=30 mg/dL 05/27/2022 4:19 PM CDT [facility] PROVIDER ORDERED STATUS RANDOM 05/27/2022 4:19 PM CDT [facility] Blood BLOOD SPECIMEN / Unknown Venipuncture / Unknown 05/27/2022 9:50 AM CDT 05/27/2022 9:50 AM CDT [facility] Performing Organization Address City/[facility]/ZIP Co de Phone Number [facility] [address] * HPV HIGH RISK (05/27/2022 9:32 AM CDT) TYPE 16 Negative Negative 05/29/2022 10:24 AM CDT [facility] TYPE 18 Negative Negative 05/29/2022 10:24 AM CDT [facility] OTHER HIGH RISK TYPES Negative Negative 05/29/2022 10:24 AM CDT [facility] Other (Cervical) Non-Blood / Unknown 05/27/2022 9:32 AM CDT 05/27/2022 4:54 PM CDT Narrative [facility] - 05/29/2022 10:24 AM CDT HPV types 16, 18, 31, 33, 35, 39, 45, 51, 52, 56, 58, 59, 66 and 68 DNA were undetectable or below the pre-set threshold. Methodology: Hannah Mike 4800 HPV Test [facility] Performing Organization Address City/[facility]/ZIP Co de Phone Number [facility] [address] [place] [address], * ANTI HCV (03/23/2018 8:37 AM CDT) HEPATITIS C ANTIBODY Non-React stephanie Non-React stephanie 03/23/2018 1:39 PM CDT [facility] Comment:Antibodies to HCV no t detected; does not exclude the possibility of exposure to HCV. Blood BLOOD SPECIMEN / Unknown Venipuncture / Unknown 03/23/2018 8:37 AM CDT 03/23/2018 8:37 AM CDT Ruchi Brown [employer] S[employer] OUTS [facility] [address] [place] [address], from Last 3 Months or Most Recently Relevant to Health Maintenance Care Teams Remote Control Assembler Relationship Specialty Start Date End Date Fe Lang [place] [address] PCP - General Physician Head Waiter 02/03/23
--- OUTSIDE RECORDS SUMMARY | 2024-10-04 14:07 | XMS_ITS ---
Author Organization [facility] Address [address] [place] [address] Care Team Providers Care Grey Roll Worker Name Role Phone Unavailable Primary Care Provider Unavailabl e Active Problems Problem Noted Date Diagnosed Date Malignant Neoplasm Of Breast Upper Outer Quadrant Female Left 01/30/2023 Cancer Staging:Clinical stage from 01/30/2023:Stage IIB(cT2, cN0, cM0, G2, ER-, AZ-, HER2-) - Signed by Rosanne Young M.D. on 01/30/2023 Pathologic stage from 08/19/2023:No Stage Recommended(ypT1a, pN0(sn), cM0, G2, ER-, AZ-, HER2-) - Unsigned Current Oncology Plans No current plan information found. Past Plans No past plan information found. Radiation Treatments * Plan Last Treated On Elapsed Days Fractions Treated Prescribed Fraction Dose Prescribed Total Dose [id number] 09/30/2023 12 4 of 4 250 cGy 1,000 cG y [id number] 09/24/2023 6 5 of 5 520 cGy 2,600 cGy Reference Point Last Treated On Elapsed Days Session Dose Total Dose [id number] 09/30/2023 12 250 cGy 3,600 cGy
--- OUTSIDE RECORDS SUMMARY | 2024-10-04 14:07 | XMS_ITS | Encounter Summary ---
Author Organization [facility] Address [address] [place] [address] Care Team Providers Care Die Casting Machine Setter Name Role Phone Unavailable Primary Care Provider Unavailabl e Reason for Visit * Reason Comments Med Refill Encounter Details Date Type Department Care Team (Late st Contact Info) Description 07/11/2024 Refill Department of Radiation Oncology in [place], [place] [address] [place] [phone] Tiffanie Asif M.D. [address] [place] [phone] Med Refill Social History Tobacco Use Types Packs/Day Years [...] on file Legal Sex Female 7:36 AM CAR PUSHER Gender Identity Not on file Sexual Orientation Not on file documented as of this encounter Plan of Treatment Not on file documented as of this encounter Visit Diagnoses Not on filedocumented in this encounter
--- OUTSIDE RECORDS SUMMARY | 2024-10-04 14:07 | XMS_ITS | Referral Summary ---
Author Organization [facility] Address [address] [place] [address] Care Team Providers Care Wool Hat Finisher Name Role Phone Unavailable Primary Care Provider Unavailabl e Source Comments Patient records contain information from all sites at [facility]. For routine questions regarding patient records, call [phone] during business hours, M-F 8:00 AM - 5:00 PM Central Time. Record requests for emergency care only can be directed to [phone] at any time.[facility] Encounters Date Type Department Care Team Description 07/11/2024 Refill Department of Radiation Oncology in [place], [place] [address] [place] [phone] Tiffanie Asif M.D. Med Refill from Last 3 Months Allergies Active Allergy Reactions Criticality Noted Date [...] cM0, G2, ER-, RI-, HER2-) - Unsigned Social History Tobacco Use [...] Date Recorded Dental: Regular Dentist Unknown 07/24/20 Comments Unknown Sex and Gender Information Value Date Recorded Sex Assigned at Not on file Legal Sex Female 7:36 AM PHOTOGRAPHER HELPER Gender Identity Not on file Sexual Orientation Not on file Last Filed Vital Signs Vital Sign Reading Time Taken Comments Blood Pressure 118/67 09/12/2023 8:47 AM CDT Pulse 69 09/12/2023 8:47 AM CDT Temperature 36.8 C (98.3 F) 09/25/2023 3:12 PM PHOTOGRAPHER HELPER Respiratory Rate - - Oxygen Saturation - - Inhaled Oxygen Concentration - - Weight 73.5 kg (162 lb 0.6 oz) 09/25/2023 3:12 P M PHOTOGRAPHER HELPER Height - - Body Mass Index - - Plan of Treatment Not on file Procedures Procedure Name Priority Date/Time Associated Diagnosis Comments OUTSIDE MG MAMMOGRAM Routine 01/13/2023 9:50 AM PHOTOGRAPHER HELPER from Last 3 Months or Most Recently Relevant to Health Maintenance Results * MM clip placement LT-Outside Mammogram (01/13/2023 9:50 AM PHOTOGRAPHER HELPER) Narrative [facility] - 07/28/2023 8:40 AM CDT [...] System IMG BI PROCEDURES Final R esult Performing Organization Address [facility]/State/ZIP Co de Phone Number [facility] NA from Last 3 Months or Most Recently Relevant to Health Maintenance Insurance [facility]
--- OUTSIDE RECORDS SUMMARY | 2024-10-04 14:07 | XMS_ITS ---
Author Organization [facility] Address [address] [place] [address] Care Team Providers Care Educational Fundraising Director Name Role Phone Unavailable Unavailable Unavailable Surgery Details Not on file Complications Check Surgery Details section. Procedure Estimated Blood Loss Check Surgery Details section. Procedure Findings Check Surgery Details section. Procedure Specimens Taken Check Surgery Details section.
== END 2024-10-04 13:58 | disposition home or self-care (01) ==
PROVIDERS: Emergency Provider Family Medicine; PCP Student in an Organized Health Care Education/Training Program
DX: M79.605 Pain in left leg (principal)
CPT/HCPCS: 93971; 99284

== ENCOUNTER 2025-02-17 10:30 | Outpatient (RCR) | payer BC, OTHER, SELFPAY ==
--- NOTE | 2024-11-12 08:40 | URNOTE ---
Pt has new insurance as of 11/10/2024. RN started a new workload item with a delayed send date of 01/17/2025 as her next Zometa is scheduled for 02/17/2025.
--- NOTE | 2025-02-01 08:38 | ONC.NURNOTE ---
Pt called reporting she has been taking magnesium oxide for hot flashes that is working well however she is having significant diarrhea. She stopped mg and is having 2-5 hot flashes daily. She has a prescription for oxybutynin but does not want to use it d/t wanting to be on fewer prescriptions. Reviewed with Page Minaya PA-C; recommend trying SlowMag OTC instead of mg oxide. LM for pt.
--- NOTE | 2025-02-03 16:44 | URNOTE ---
Prior is not required for Zoledronic acid (Zometa) ([id number]) per [facility] INjectable Drug Authorization List
--- NOTE | 2025-02-04 13:48 | ONC.NURNOTE ---
Patient called wondering if it would be okay to take here Tamoxifen 10 mg BID vs. 20 mg daily dosing. She had read that taking it this way could minimize some of the side effects. Discussed with MADISON Michael and confirmed that this dosing was okay. New Rx sent and patient updated.
[2025-02-17 10:42] LABS: Calcium* 9.1 mg/dL (8.4-10.6); Est. Creatinine Clearance* 48.87; Estimated Glomerular Filt Rate 64 ml/min
[2025-02-17] MEDS: ZOLEDRONIC ACID 4 MG in 0.9 % SODIUM CHLORIDE 100 ml 100 ML 420 MG IVPB (11:07)
== END 2025-05-03 23:59 | disposition home or self-care (01) ==
LOC: CCIC 10:30
PROVIDERS: Clinical Nurse Specialist; PCP Student in an Organized Health Care Education/Training Program; Referring Provider Student in an Organized Health Care Education/Training Program; Visit Provider Physician Assistant
DX: C50.912 Malignant neoplasm of unspecified site of left female breast (principal); Z17.0 Estrogen receptor positive status [ER+]; Z79.810 Long term (current) use of selective estrogen receptor modulators (SERMs); Z86.711 Personal history of pulmonary embolism; Z79.01 Long term (current) use of anticoagulants; E04.1 Nontoxic single thyroid nodule; N89.8 Other specified noninflammatory disorders of vagina; M54.50 Low back pain, unspecified; Z87.891 Personal history of nicotine dependence
CPT/HCPCS: 36415; 82310; 82565; 96374; 99215; G0463; J3489

== ENCOUNTER 2025-02-17 12:22 | Outpatient (CLI) | payer OTHER, SELFPAY ==
--- NOTE | 2025-02-17 12:30 | CRLHL7_ITS ---
For Patients: As a result of the Century Cures Act, medical imaging exams and procedure reports are released immediately into your electronic medical record. You may view this report before your referring provider. If you have questions, please contact your health care provider. INDICATION: Worsening low back pain, history of osteoporosis and breast cancer TECHNIQUE: Lumbar spine 2 view. COMPARISON: None. FINDINGS: Bones: 5 lumbar type vertebral bodies. Alignment is normal. Vertebral body heights are maintained. No fractures or significant bone lesions, although bowel gas obscures the anterior L4 vertebral body. Joints: Moderate bilateral sacroiliac joint sclerosis. Soft tissues: Two ovoid radiopaque structures project over the L1 vertebral body measuring 1.5 cm, possibly ingested pills. IMPRESSION: No fractures or significant bone lesions, although bowel gas obscures the anterior L4 vertebral body. Two ovoid radiopaque structures project over the L1 vertebral body, possibly ingested pills.Please correlate with clinical history. Dictated by Maddison Chong MD @ 02/18/2025 7:25:46 AM (Electronically Signed)
== END 2025-02-17 12:23 | disposition home or self-care (01) ==
LOC: RAD 12:22
PROVIDERS: PCP Student in an Organized Health Care Education/Training Program; Visit Provider Physician Assistant
DX: M54.50 Low back pain, unspecified (principal); Z85.3 Personal history of malignant neoplasm of breast
CPT/HCPCS: 72100

== ENCOUNTER 2025-05-04 12:53 | Outpatient (CLI) | payer OTHER, SELFPAY ==
--- NOTE | 2025-05-04 13:00 | CRLHL7_ITS ---
For Patients: As a result of the Century Cures Act, medical imaging exams and procedure reports are released immediately into your electronic medical record. You may view this report before your referring provider. If you have questions, please contact your health care provider. Indication: Low back pain. History of breast cancer. Technique: Multiplanar, multisequence, MRI of the lumbar spine, obtained without contrast. The patient refused IV contrast. Comparison: Lumbar spine x-ray 02/17/2025 Findings: The lumbar lordosis is preserved. No significant spondylolisthesis. Vertebral body heights are grossly maintained. No evidence of acute fracture or focal compression deformity. Bone marrow signal appears within normal limits. The conus medullaris terminates at approximately L1-2. No suspicious findings in the prevertebral and paraspinal soft tissues. Included SI joints are unremarkable. T12-L1: No neural foraminal or spinal canal stenosis. L1-L2: No neural foraminal or spinal canal stenosis. L2-L3: Mild disc bulge, facet arthropathy. No neural foraminal or spinal canal stenosis. L3-L4: Mild disc bulge, facet arthropathy. No neural foraminal or spinal canal stenosis. L4-L5: Mild disc bulge, facet arthropathy. No right, mild left neural foraminal narrowing. No spinal canal stenosis. L5-S1: Mild disc bulge, facet arthropathy. No right, mild left neural foraminal narrowing. No spinal canal stenosis. Impression: 1. No acute osseous abnormality. No suspicious bone marrow lesion on this noncontrast exam. 2. Lumbar spondylosis contributing to mild left neural foraminal narrowing at L4-L5 and L5-S1. 3. No spinal canal stenosis. Dictated by Felicia Bonds MD @ 05/05/2025 7:03:30 PM (Electronically Signed)
--- OUTSIDE RECORDS SUMMARY | 2025-05-05 00:21 | XMS_ITS ---
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 on 01/30/2023 Pathologic stage from 08/19/2023:No Stage Recommended(ypT1a, pN0(sn), cM0, G2, ER-, NE-, HER2-) - Unsigned Current Treatment and Therapy Plans No current plan information found. Past Treatment and Therapy Plans No past plan information found. Past Radiation Episodes * 3D MOUNTER FLUTES AND PICCOLOS: Left BreastOverview* First Treatment Date Last Treatment Date Treatment Site Technique Goal Episode Provider 09/18/2023 09/30/2023 Left Breast 3D MOUNTER FLUTES AND PICCOLOS Curative * Linked Problems Malignant Neoplasm Of Breast Upper Outer Quadrant Female Left Treatment Courses* Course 1xBreast 09/18/2023 - 09/30/2023 Treatment Period Fraction Dose Fractions Total Dose Plans Planned [id number] 09/25/2023 - 09/30/2023 250 cGy 4 / 4 1 ,000 cGy [id number] 09/18/2023 - 09/24/2023 520 cGy 5 / 5 2 ,600 cGy Reference Points Delivered [id number] 09/18/2023 - 09/30/2023 3,600 cGy
--- OUTSIDE RECORDS SUMMARY | 2025-05-05 00:21 | XMS_ITS | Clinical Summary ---
Author Organization [employer] [facility] Address [address] [place] [address] Care Team Providers Care Bss Solution Architect Name Role Phone Fe Lang Primary Care Provider [phone] Allergies Active Allergy Reactions Criticality Noted Date Comments Fluoxetine Other - Describe In Comment Field Long QT. Medications nystatin (MYCOSTATIN) 100,000 unit/1mL susp 1 mL four times daily. Active tamoxifen (NOLVADEX) 20 mg tablet Take 20 mg by mouth once daily. 4 Active calcium carbonate-vitam in D3 (600 mg-400 unit) 600 mg-10 mcg (400 unit) tablet Take 1 Tablet by mouth two times daily with meals. 4 Active Eliquis 5 mg tablet Take 1 Tablet by mouth two times daily. 3 04/13/20 25 Discontinu ed(*Patien t states no longer taking) Active Problems Problem Noted Date Diagnosed Date Infiltrating ductal carcinoma of left breast 02/2025 Pap smear for cervical cancer screening 08/01/20 Overview (08/01/2022): 05/2022 NIL/HPV Negative Plan: Pap and HPV 05/2027 Elevated fasting glucose 05/27/2022 Overview (05/27/2022): X3. Needs A1c next labs. Mild depression 09/08/2014 Anxiety disorder 09/08/2014 Resolved Problems Problem Noted Date Diagnosed Date Resolved Date Depression, major, recurrent 04/29/2013 03/30/2014 Plantar fasciitis 10/18/2008 09/08/2014 Encounters Date Type Department Care Team Description 04/28/2025 11:00 AM CDT Patient Outreach [facility] [address] [place] [address] Sarah Bashir RN Diabetes (New Dx Assessment) 04/28/2025 Travel 04/13/2025 10:20 AM CDT Office Visit [facility] [address] [place] [address] Fe Lang PA Physical (Non Fasting. ) 04/13/2025 9:40 AM CDT Ancillary Procedure [facility] [address] [place] [address] 04/13/2025 Travel 02/17/2025 Orders Only [facility] Scanner 1 scan: (1-Ord) [facility], LUMBAR SPINE 2-3V, 02/17/2025 from Last 3 Months Immunizations Immunization Administration Dates Next Due Influenza, IIV4 07/21/2013 Tdap 03/18/2018,08/27/2007 Family History Medical History Relation Name Comments Osteoarthritis Brother 2 hip dysplasia No Known Problems Brother 3 Heart Disease Father CHF Parkinsonism Father Parkinson's, CH F Dementia Mother Heart Disease Paternal Grandmother cardio myopathy Heart Disease Sister 1 ? cardiomyopat hy No Known Problems Sister 2 Cancer-breast No Family History Relation Name Status Comments Brother 1 Alive Brother 2 Alive Brother 3 Alive Father Maternal Grandfather Maternal Grandmother Mother Paternal Grandfather Paternal Grandmother Sister 1 Alive Sister 2 Alive Social History Tobacco Use Types Packs/Day Years Used Date Smoking Tobacco: Former Cigarettes 1 2 2 011 - 2013 Smokeless Tobacco: Former Quit: 11/13/2014 Tobacco Cessation:Counseling Given: Not Answered Alcohol Use Standard Drinks/Week Comments Not Currently 0 (1 standard drink = 0.6 oz pur e alcohol) occ. wine PHQ-2 Answer Date Recorded PHQ-2 TOTAL SCORE 0 04/13/2025 Social Connections Answer Date Recorded Do you often feel lonely or isolated from those around you? 0 04/13/2025 Financial Resource Strain Answer Date R ecorded Difficulty of Paying Living Expenses 3 04/13/2025 Difficulty of Paying Living Expenses Not on file 04/13/2025 Food Insecurity Answer Date Recorded Do you worry your food will run out before you are able to buy more? 1 04/13/2025 Transportation Needs Answer Date Record ed Does lack of transportation keep you from medica l appointments? 1 04/13/2025 Does lack of transportation keep you from work, meetings or getting things that you need? 1 04/13/2025 Housing Stability Answer Date Recorded What is your housing situation today? 1 04/13/2025 Utilities Answer Date Recorded Do you have trouble paying f or utilities (for example, heat, electricity, water, phone)? 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 Gender Identity Not on file Sexual Orientation Not on file Occupation Industry Job Start Date Job End Date Not on file Not on file Not on file Not on file Obstetrics History Para Term AB IAB SAB Ectopic Multiple Livin g Live Births 2 2 2 2 Date Outcome GA Total Labor Labor/2nd/3rd Weight Sex Type Anes PTL [place] A1 A5 Name Clin Term Term Last Filed Vital Signs Vital Sign Reading Time Taken Comments Blood Pressure 128/68 04/13/2025 10:09 AM CDT Pulse 71 04/13/2025 10:09 AM CDT Temperature 36.7 C (98.1 F) 08/06/2023 12:43 PM CDT Respiratory Rate 16 08/06/2023 12:43 PM CDT Oxygen Saturation 97% 04/13/2025 10:09 AM CDT Inhaled Oxygen Concentration - - Weight 83.9 kg (185 lb) 04/13/2025 10:09 AM CDT Height 161.6 cm (5' 3.62) 08/06/2023 12:43 PM C DT Body Mass Index 32.13 08/06/2023 12:43 PM CDT Plan of Treatment Upcoming Encounters Date Type Department Care Team (Late st Contact Info) Description 07/15/2025 10:20 AM CDT Office Visit [facility] [address] [place] [address] Fe Lang PA [address] [place] [address] Health Maintenance Due Date Last Done Comments COVID-19 vaccine series (#1) 1968 HIV for age 15-65 1978 Pneumococcal series for age 50+ (1 of 2 - PCV) 1982 Zoster (shingles) series for age 50+ (1 of 2) 1982 RSV vaccine for adults or (1 - Risk 60-74 years 1-dose series) 2023 BMI (ht and wt on same day) for age 18+ 08/06/2024 08/06/2023, 05/27/2022, 07/21/2019, Additional history exists Influenza Vaccine (Season Ended) 2025 07/21/2013 Depression screening for age 12+ 04/13/2026 04/13/2025, 04/01/2022, 07/21/2019, Additional history exists Mammogram for age 45-75 04/13/2026 04/13/20 25, 05/05/2024, 01/06/2023, Additional history exists Pap test for age 21-65 05/27/2027 , 05/27/2022, 03/18/2018, Additional history exists Tetanus booster 03/18/2028 03/18/2018, 08/27/2007 Fecal testing sDNA-FIT (Cologuard) for age 45-75 04/19/2028 04/19/2025 Lipids for age 45-75 04/13/2030 04/13/2025, 05/27/2022, 03/23/2018, Additional history exists Tdap Completed 03/18/2018, 08/27/2007 Hepatitis C screening for age 18-79 Completed 03/23/2018 Hepatitis B series for 19+ Aged Out N o longer eligible based on patient's age to complete this topic Procedures Procedure Name Priority Date/Time Associated Diagnosis Comments SDNA-FIT EXTERNAL (COLOGUARD) Routine 04/19/2025 11:36 AM CDT Screening for colon cancer LIPID PANEL W REFLEX MEASURED LDL Routine 04/13/2025 11:02 AM CDT Lipid screening BASIC METABOLIC PANEL Routine 04/13/2025 11:02 AM CDT Elevated fasting glucose VITAMIN D 25 (DEFICIENCY) Routine 04/13/2025 11:02 AM CDT Vitamin D deficiency HEMOGLOBIN A1C Routine 04/13/2025 11:02 AM CDT Elevated fasting glucose XR MAMMO RAVEN BILAT SCREEN Routine 04/13/2025 9:57 AM CDT Visit for screening mammogram SCAN-RADIOLOGY REPORT 02/17/2025 12:00 AM CDT HPV HIGH RISK Routine 05/27/2022 9:32 AM CDT Encounter for Papanicolaou smear for cervical cancer screening ANTI HCV Routine 03/23/2018 8:37 AM CDT Encounter for hepatitis C screening test for low risk patient from Last 3 Months or Most Recently Relevant to Health Maintenance Results * SDNA-FIT EXTERNAL (COLOGUARD) (04/19/2025 11:36 AM CDT) NONINV COLON CA DNA+OCC BLD SCRN STL-IMP Negative Negative 04/25/2025 6:26 PM CDT [employer] (CLIA #:[id number]) Comment: The Cologuard (TM) test was performed on this specimen. NEGATIVE TEST RESULT. A negative Cologuard result indicates a low likelihood that a colorectal cancer (CRC) or advanced adenoma (adenomatous polyps with more advanced pre-malignant features) is present. The chance that a person with a negative Cologuard test has a colorectal cancer is less than 1 in 1500 (negative predictive value >99.9%) or has an advanced adenoma is less than 5.3% (negative predictive value 94.7%). These data are based on a prospective cross-sectional study of 10,000 individuals at average risk for colorectal cancer who were screened with both Cologuard and colonoscopy. (Arely Rizzo al, N Engl J Med 2014;370(14):1286- 1297) The normal value (reference range) for this assay is negative. COLOGUARD RE-SCREENING RECOMMENDATION: Periodic colorectal cancer screening is an important part of preventive healthcare for asymptomatic individuals at average risk for colorectal cancer. Following a negative Cologuard result, the [place] Cancer Society and U.S. Multi-Society Task Force screening guidelines recommend a Cologuard re-screening interval of 3 years. References: [place] [employer] Guideline for Colorectal Cancer Screening: https://www.cancer.org/cancer/wdrqq-zwfsvu-hrkttv/mdavafaty-mbuitewum-tkujisa/ac s-rec ommendations.html.; Edmar DK, Macey DOWNS, Roberta KirkK, Colorectal Cancer Screening: Recommendations for Physicians and Patients from the U.S. Multi-Society Task Force on Colorectal Cancer Screening , Am J Gastroenterology 2017; 112:8144-5687. TEST DESCRIPTION: Composite algorithmic analysis of stool DNA-biomarkers with hemoglobin immunoassay. Quantitative values of individual biomarkers are not reportable and are not associated with individual biomarker result reference ranges. Cologuard is intended for colorectal cancer screening of adults of either sex, 45 years or older, who are at average-risk for colorectal cancer (CRC). Cologuard has been approved for use by the U.S. FDA. The performance of Cologuard was established in a cross sectional study of average-risk adults aged 50-84. Cologuard performance in patients ages 45 to 49 years was estimated by sub-group analysis of near-age groups. Colonoscopies performed for a positive result may find as the most clinically significant lesion: colorectal cancer [4.0%], advanced adenoma (including sessile serrated polyps greater than or equal to 1cm diameter) [20%] or non- advanced adenoma [31%]; or no colorectal neoplasia [45%]. These estimates are derived from a prospective cross-sectional screening study of 10,000 individuals at average risk for colorectal cancer who were screened with both Cologuard and colonoscopy. (Arely Rizzo al, N Engl J Med 2014;370(14):1319-3448.) Cologuard may produce a false negative or false positive result (no colorectal cancer or precancerous polyp present at colonoscopy follow up). A negative Cologuard test result does not guarantee the absence of CRC or advanced adenoma (pre-cancer). The current Cologuard screening interval is every 3 years. ([place] [employer] Society and U.S. Multi-Society Task Force). Cologuard performance data in a 10,000 patient pivotal study using colonoscopy as the reference method can be accessed at the following location: [email or web address].[email or web address]/results. Additional description of the Cologuard test process, warnings and precautions can be found at www.[email or web address][employer] [email or web address].rd.com. Stool specimen (specimen) (Rectum) 04/19/2025 11:36 AM CDT 04/21/2025 1:45 PM CDT Fe WALLACE URINE Final Res ult Performing Organization Address [facility] Co de Phone Number [employer] (CLIA #:[id number]) [address] [place] [address], * (ABNORMAL) HEMOGLOBIN A1C (04/13/2025 11:02 AM CDT) HEMOGLOBIN A1C 6.6(H) <5.7 % [facility] Comment: For someone without known diabetes, a hemoglobin A1c value of 6.5% or greater indicates that they may have diabetes and this should be confirmed with a follow-up test. For someone with known diabetes, a value <7% indicates that their diabetes is well controlled and a value greater than or equal to 7% indicates suboptimal control. A1c targets should be individualized based on duration of diabetes, age, comorbid conditions, and other considerations. Currently, no consensus exists regarding use of hemoglobin A1c for diagnosis of diabetes for children. Blood BLOOD SPECIMEN / Unknown 04/13/2025 11:02 AM CDT 04/13/2025 11:04 AM CDT Fe WALLACE CHEMISTRY Final Res ult Performing Organization Address [facility] Co de Phone Number [employer] [facility] [address] [place] [address], [place] [phone] [email or web address] [address] [place] [address] * LIPID PANEL W REFLEX MEASURED LDL (04/13/2025 11:02 AM CDT) CHOLESTEROL, TOTAL 159 <200 mg/dL [facility] HDL CHOLESTEROL 51 > OR = 50 mg/dL [facility] TRIGLYCERIDES 130 <150 mg/dL [facility] LDL-CHOLESTEROL 85 mg/dL (calc) [facility] Comment: Reference range: <100 Desirable range <100 mg/dL for primary prevention; <70 mg/dL for patients with CHD or diabetic patients with > or = 2 CHD risk factors. LDL-C is now calculated using the Chyna calculation, which is a validated novel method providing better accuracy than the Friedewald equation in the estimation of LDL-C. Omari SS et al. SHAJI. 2013;310(19): 2523-3729 (http://education.Change.org/faq/WFD334) CHOL/HDLC RATIO 3.1 <5.0 (calc) [facility] NON HDL CHOLESTEROL 108 <130 mg/dL (calc) [facility] Comment: For patients with diabetes plus 1 major ASCVD risk factor, treating to a non-HDL-C goal of <100 mg/dL (LDL-C of <70 mg/dL) is considered a therapeutic option. Blood BLOOD SPECIMEN / Unknown 04/13/2025 11:02 AM CDT 04/13/2025 11:04 AM CDT Fe WALLACE CHEMISTRY Final Res ult [employer] [facility] [address] [place] [address], [facility] [address] [place] [address] * VITAMIN D 25 (DEFICIENCY) (04/13/2025 11:02 AM CDT) VITAMIN D,25-OH,TOTAL,IA 38 30 - 100 ng/mL [facility] Comment: Vitamin D Status 25-OH Vitamin D: Deficiency: <20 ng/mL Insufficiency: 20 - 29 ng/mL Optimal: > or = 30 ng/mL For 25-OH Vitamin D testing on patients on D2-supplementation and patients for whom quantitation of D2 and D3 fractions is required, the [facility](TM) 25-OH VIT D, (D2,D3), LC/MS/MS is recommended: order code 46570 (patients >2yrs). See Note 1 Note 1 For additional information, please refer to http://education.Change.org/faq/UZP672 (This link is being provided for informational/ educational purposes only.) Blood BLOOD SPECIMEN / Unknown 04/13/2025 11:02 AM CDT 04/13/2025 11:04 AM CDT us Fe WALALCE SEND OUTS Final Res ult [employer] [facility] [address] [place] [address], [address] [facility] [address] [place] [address] * BASIC METABOLIC PANEL (04/13/2025 11:02 AM CDT) Pathologist [facility] GLUCOSE 97 65 - 99 mg/dL [facility] Comment: Fasting reference interval UREA NITROGEN (BUN) 13 7 - 25 mg/dL [facility] CREATININE 1.01 0.50 - 1.05 mg/dL [facility] EGFR 63 > OR = 60 mL/min/1. 73m2 [facility] BUN/CREATININE RATIO SEE NOTE: (calc) [facility] Comment: Not Reported: BUN and Creatinine are within reference range. SODIUM 141 135 - 146 mmol/L [facility] POTASSIUM 4.6 3.5 - 5.3 mmol/L [facility] CHLORIDE 107 98 - 110 mmol/L [facility] CARBON DIOXIDE 24 20 - 32 mmol/L [facility] ELECTROLYTE BALANCE 10 7 - 17 mmol/L (calc) [facility] CALCIUM 9.5 8.6 - 10.4 mg/dL [facility] Blood BLOOD SPECIMEN / Unknown 04/13/2025 11:02 AM CDT 04/13/2025 11:04 AM CDT Fe WALLACE CHEMISTRY Final Res ult [facility] [address] [place] [address], [facility] [address] [place] [address] * XR MAMMO RAVEN BILAT SCREEN (04/13/2025 9:57 AM CDT) Anatomical Region Laterality Modality BREASTS, Breast Left, Breast Right Bilateral Mammography Impressions 04/18/2025 3:08 PM CDT There is no radiographic evidence for malignancy. Recommend annual mammograms. MAMMOGRAM ASSESSMENT: ACR 1 Negative PATIENTS: You will also receive a letter with your examination results in an easy to read format. If you have questions about your results, please contact your referring provider. Narrative 04/18/2025 3:08 PM CDT For Patients: As a result of the Cures Act, medical imaging exams and procedure reports are released immediately into your electronic medical record. You may view this report before your referring provider. If you have questions, please contact your health care provider. XR MAMMO RAVEN BILAT SCREEN [[id number]] CLINICAL HISTORY: This is an asymptomatic 59 y.o. patient. INDICATION FOR EXAM: Mammogram Screening. TECHNIQUE: CC and MLO views were obtained. This study was evaluated with the assistance of Computer-Aided Detection. Breast Tomosynthesis was used in interpretation. COMPARISON FILM: Yes 05/05/24 [facility] 12/24/22 [facility] FINDINGS: There are scattered areas of fibroglandular density. There are no dominant masses, suspicious micro calcifications or areas of architectural distortion. Fe Lang PA MAMMO Final Res ult * SCAN-RADIOLOGY REPORT (02/17/2025 12:00 AM CDT) Anatomical Region Laterality Modality Other Scanner OTHER Final Result * HPV HIGH RISK (05/27/2022 9:32 AM CDT) TYPE 16 Negative Negative 05/29/2022 10:24 AM CDT [facility] TYPE 18 Negative Negative 05/29/2022 10:24 AM CDT [facility] OTHER HIGH RISK TYPES Negative Negative 05/29/2022 10:24 AM CDT [facility] Other (Cervical) Non-Blood / Unknown 05/27/2022 9:32 AM CDT 05/27/2022 4:54 PM CDT Narrative [facility] - 05/29/2022 10:24 AM CDT HPV types 16, 18, 31, 33, 35, 39, 45, 51, 52, 56, 58, 59, 66 and 68 DNA were undetectable or below the pre-set threshold. Methodology: Hannah Mike 4800 HPV Test Karina WALLACE MICROBIOLOGY Final Result [facility] [address] [place] [address], * ANTI HCV (03/23/2018 8:37 AM CDT) HEPATITIS C ANTIBODY Non-React stephanie Non-React stephanie 03/23/2018 1:39 PM CDT [facility] Comment:Antibodies to HCV no t detected; does not exclude the possibility of exposure to HCV. Blood BLOOD SPECIMEN / Unknown Venipuncture / Unknown 03/23/2018 8:37 AM CDT 03/23/2018 8:37 AM CDT Ruhci Brown FREIGHT SEPARATOR SEND OUTS F inal Result [facility] [address] [place] [address], from Last 3 Months or Most Recently Relevant to Health Maintenance Insurance [employer] Care Teams Bss Solution Architect Relationship Specialty Start Date End Date Fe Lang PA [address] [place] [address] PCP - General Physician Auto Camp Attendant 02/03/23
--- OUTSIDE RECORDS SUMMARY | 2025-05-05 00:21 | XMS_ITS | Clinical Summary ---
Author Organization [facility] Address [address] [place] [address] Care Team Providers Care Machine Ironer Name Role Phone Unavailable Primary Care Provider Unavailabl e Source Comments Patient records contain information from all sites at [facility]. For routine questions regarding patient records, call [phone] during business hours, M-F 8:00 AM - 5:00 PM Central Time. 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 Gender Identity Not on file Sexual Orientation Not on file Last Filed Vital Signs Vital Sign Reading Time Taken Comments Blood Pressure 118/67 09/12/2023 8:47 AM CDT Pulse 69 09/12/2023 8:47 AM CDT Temperature 36.8 C (98.3 F) 09/25/2023 3:12 PM REPORTS ANALYSIS MANAGER Respiratory Rate - - Oxygen Saturation - - Inhaled Oxygen Concentration - - Weight 73.5 kg (162 lb 0.6 oz) 09/25/2023 3:12 P M REPORTS ANALYSIS MANAGER Height - - Body Mass Index - - Plan of Treatment Health Maintenance Due Date Last Done Comments CT Colonography 1963 Cervical/Vaginal Cancer Screening 1963 Cologuard 1963 Colonoscopy 1963 Colorectal Cancer Screening 1963 FIT 1963 HIV Screening 1963 Hepatitis C Screening 1963 COVID-19 Vaccine (#1) 1968 Pneumococcal vaccine (50+ years) (1 of 2 - PCV) 1982 Zoster Vaccines (1 of 2) 1982 Mammogram 01/14/2024 01/13/2023, 12/12, 12/24/2022, Additional history exists Influenza Vaccine (#1) 2024 07/21/2013 Depression Screening (Annual PHQ-2) 11/10/2024 Fasting Glucose for Diabetes Screening 05/27/2025 05/27/2022 [...] Name Priority Date/Time Associated Diagnosis Comments OUTSIDE MR NEURO Routine 05/04/2025 1:15 PM CDT OUTSIDE DX SKELETAL Routine 02/17/2025 1 2:45 PM CDT OUTSIDE MG MAMMOGRAM Routine 01/13/2023 9:50 AM REPORTS ANALYSIS MANAGER from Last 3 Months or Most Recently Relevant to Health Maintenance Results * MR lumbar spine wo con-Outside MR Neuro (05/04/2025 1:15 PM CDT) 05/04/2025 1:13 PM CDT Narrative [facility] - 05/04/2025 3:17 PM CDT This order has been created and auto-finalized to support the import of outside images. If available, original interpretation can be found on the Media Tab in Chart Review, in Document Viewer, as an image in InfinityView or as an Addendum. If a re-interpretation or overread is required please follow defined workflow. us Provider Not In System IMG MRI PROCEDURES Final Result Performing Organization Address [facility] Co de Phone Number [facility] NA * XR lumbar spine [id number]-Ublkiov Skeletal Xray (02/17/2025 12:45 PM CDT) Narrative [facility] - 05/04/2025 3:16 PM CDT This order has been created and auto-finalized to support the import of outside images. If available, original interpretation can be found on the Media Tab in Chart Review, in Document Viewer, as an image in InfinityView or as an Addendum. If a re-interpretation or overread is required please follow defined workflow. us Provider Not In System IMG DIAGNOSTIC IMAGING DE OCEDURES Final Result Performing Organization Address [facility] Co de Phone Number [facility] NA * MM clip placement LT-Outside Mammogram (01/13/2023 9:50 AM REPORTS ANALYSIS MANAGER) Narrative [facility] - 07/28/2023 8:40 AM CDT This order [...] Most Recently Relevant to Health Maintenance Insurance [facility]
== END 2025-05-04 12:54 | disposition home or self-care (01) ==
LOC: MRI 12:54
PROVIDERS: PCP Student in an Organized Health Care Education/Training Program; Visit Provider Physician Assistant
DX: M54.50 Low back pain, unspecified (principal); M47.896 Other spondylosis, lumbar region; M51.26 Other intervertebral disc displacement, lumbar region; M51.27 Other intervertebral disc displacement, lumbosacral region
CPT/HCPCS: 72148